=== PATIENT | female | born 1970 | race Caucasian/White ===

== ENCOUNTER 2023-12-20 08:37 | Outpatient (AMB) | payer OTHER, SELFPAY ==
--- NOTE | 2023-12-20 08:41 | MHC.PC.OV ---
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 She states she has not had a pcp in many years. She states that she thinks she has a history of elevated blood sugars but is not really sure. She says that they told her that they were going to watch her for diabetes about 10 years ago. No family history. She states that back in May 2023 she went to urgent care for right knee pain and was told probably ligament injury. She waited until October and went to urgent care again. She states at that time she was starting to feel tired, achy and her knee was red and swollen. She was then dx with lyme disease and borderline anaplasmosis. She took doxy for 28 days and finished it on this past Sunday. She states overall she is feeling a lot better but she still feels tired and like her knee is painful. 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 She works 2 jobs. She states that she is up-to-date on mammograms but not with gynecology. She has never had a bone density. 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 1. Little interest or pleasure in doing things: not at all 2. Feeling down, depressed, or hopeless: not at all 3. Trouble falling or staying asleep, or sleeping too much: several days 4. Feeling tired or having little energy: several days 5. Poor appetite or overeating: not at all 6. Feeling bad about yourself - or that you are a failure or have let yourself or your family down: not at all 7. Trouble concentrating on things, such as reading the newspaper or watching television: not at all 8. Moving or speaking so slowly that other people could have noticed. Or the opposite - being so fidgety or restless that you have been moving around a lot more than usual: not at all 9. Thoughts that you would be better off or of hurting yourself in some way: not at all Total score: 2 Source: Developed by Drs. Paco Carrillo, Nicolle Page, Dariusz Rose and colleagues, with an educational lucian from [employer]. Thrive Questionnaire Date Thrive assessed: 12/13/23 I am a: Patient What is your living situation today?: I have a steady place to live Within the past 12 months, did the food you bought not last and you didn't have the money to get more?: I choose not to answer this question Within the past 12 months, did you worry whether your food would run out before you got money to buy more?: I choose not to answer this question Do you have trouble paying for medicines?: No Do you have trouble getting transportation to medical appointments?: No Do you have trouble paying your heating and electricity bill?: No Do you have trouble taking care of your child, family member or friend?: No Do you have trouble with day-to-day activities such as bathing, preparing meals, shopping, managing finances, etc.?: No Are you currently unemployed and looking for a job?: No Are you interested in more education?: No Please select the resources that you would like help with: None Currently or been in a relationship where the following occur: I choose not to answer THRIVE Score: 0 AUDIT C Alcohol Use Questionnaire (AUDIT-C) 1. How often do you have a drink containing alcohol?: Never 3. How often do you have six or more drinks on one occasion?: Never Total Score: 0 JESS-7 AMB Questionnaire JESS-7 Feeling nervous, anxious, or on edge: 0 = Not at all Not being able to stop or control worryin = Not at all Worrying too much about different things: 0 = Not at all Trouble relaxin = Not at all Being so restless that it is hard to sit still: 0 = Not at all Feeling afraid as if something awful might happen: 0 = Not at all Source: Developed by Drs. Paco Carrillo, Nicolle Page, Dariusz Rose and colleagues, with an educational lucian from [employer]. Physical exam (Primary Care) Vital Signs: Last Vital Signs Temp 98.3 F 12/20/23 08:47 Pulse 69 12/20/23 08:47 Resp 14 12/20/23 08:47 BP 126/84 12/20/23 08:47 Pulse Ox 97 12/20/23 08:47 Oxygen Delivery Method Room Air 12/20/23 08:47 BMI result Body Mass Index 35.2 Tobacco/Smoking Status: Tobacco use Status Tobacco use date assessed 12/20/23 12/20/23 08:52 Patient Tobacco Use Status Current everyday Tobacco 12/20/23 08:52 e-Cigarette/Vaping Use Never Used 12/20/23 08:52 PHQ-9: PHQ-9 Score PHQ-9: Total score 2 12/20/23 09:39 Thrive Assessment: Date of Thrive Assessment Date Thrive assessed 12/13/23 12/20/23 08:52 Currently or been in a relationship where the following occur: I choose not to answer Const Orientation/consciousness: patient oriented x3 HENMT Ears: hearing grossly normal bilaterally Neck Thyroid: Thyroid normal Lymphatic: no lymphadenopathy noted Resp Auscultation: clear to auscultation bilaterally Cardio Rate: regular rate Rhythm: regular rhythm Heart sounds: S1 normal heart sound present and S2 normal heart sound present GI Inspection: Yes normal to inspection Palpation (GI): Soft to palpation and Other GI palpation findings present (nontender, no cva tenderness) Auscultation: normoactive bowel sounds Rectal Exam - Female: deferred Skin General skin exam: no rashes or lesions noted Neuro General: patient oriented x3, gait normal and no focal motor deficits Assessment and Plan Assessment & Plan (1) Right knee pain: Code(s): M25.561 - Pain in right knee Qualifiers: Chronicity: chronic Qualified Code(s): M25.561 - Pain in right knee; G89.29 - Other chronic pain Plan: S/p Lyme disease. Completed treatment. Reports having imaging which showed arthritic changes. I will refer her to ortho for ongoing pain. Failed conservative management with NSAIDs. (2) Lyme disease: Code(s): A69.20 - Lyme disease, unspecified Plan: Completed antibiotic treatment. (3) IFG (impaired fasting glucose): Code(s): R73.01 - Impaired fasting glucose Plan: Labs and A1c ordered (4) Fatigue: Code(s): R53.83 - Other fatigue Plan: Labs ordered today. Does report some improvement in questions if related to Lyme disease. Denies snoring. She is able to sleep through the night without difficulty. No exertional fatigue. Referral to chicken picker Colonoscopy referral ordered Bone density ordered Labs ordered Return in 3 months for a physical. Sooner if needed. Patient understands and agrees with the plan. Orders: Orders Comprehensive [place]aines. Panel Fast Today A69.20 - Lyme disease, unspecified, R53.83 - Other fatigue, R73.01 - Impaired fasting glucose TSH reflex Free T4 Today A69.20 - Lyme disease, unspecified, R53.83 - Other fatigue, R73.01 - Impaired fasting glucose Vitamin B12 and Folate Today A69.20 - Lyme disease, unspecified, R53.83 - Other fatigue, R73.01 - Impaired fasting glucose UA CC w/rflx Micro + Cult Today A69.20 - Lyme disease, unspecified, R53.83 - Other fatigue, R73.01 - Impaired fasting glucose Magnesium Today A69.20 - Lyme disease, unspecified, R53.83 - Other fatigue, R73.01 - Impaired fasting glucose C Reactive Protein Today A69.20 - Lyme disease, unspecified, R53.83 - Other fatigue, R73.01 - Impaired fasting glucose Uric Acid Today A69.20 - Lyme disease, unspecified, R53.83 - Other fatigue, R73.01 - Impaired fasting glucose Hemoglobin A1c Today R73.01 - Impaired fasting glucose Complete Blood Count Auto Diff Today A69.20 - Lyme disease, unspecified, R53.83 - Other fatigue, R73.01 - Impaired fasting glucose Lipid Panel Today A69.20 - Lyme disease, unspecified, R53.83 - Other fatigue, R73.01 - Impaired fasting glucose Ferritin Today A69.20 - Lyme disease, unspecified, R53.83 - Other fatigue, R73.01 - Impaired fasting glucose IRON PROFILE Today A69.20 - Lyme disease, unspecified, R53.83 - Other fatigue, R73.01 - Impaired fasting glucose Erythrocyte Sedimentation Rate Today A69.20 - Lyme disease, unspecified, R53.83 - Other fatigue, R73.01 - Impaired fasting glucose XR DEXA axial skeleton Today Z78.0 - Asymptomatic menopausal state Referrals Orthopedics Referral A69.20 - Lyme disease, unspecified, M25.561 - Pain in right knee 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
[2023-12-20 08:47] VITALS: BP 126/84; PULSE 69; RESP 14; TEMP 36.8; O2SAT 97; BMI 35.2
== END 2023-12-20 09:49 | disposition home or self-care (01) ==
PROVIDERS: Visit Provider Physician Assistant
DX: M25.561 Pain in right knee (principal); G89.29 Other chronic pain; A69.20 Lyme disease, unspecified; R73.01 Impaired fasting glucose; R53.83 Other fatigue
CPT/HCPCS: 99204

== ENCOUNTER 2023-12-24 07:02 | Outpatient (REF) | payer OTHER, SELFPAY ==
[2023-12-24 07:16] LABS: MANUAL DIFF FLAG NO
[2023-12-24 07:50] LABS: Basophils Percent Auto 0.5 % (0-2); Eosinophils Absolute Auto 0.1 X10*3/uL (0.0-0.4); Eosinophils Percent Auto 1.4 % (0-4); Hemoglobin 13.9 g/dl (12.0-16.0); Imm Gran Abs Auto 0.05 X10*3/uL (0.00-0.03); Imm Gran Pct Auto 0.6 % (0.0-0.4); Lymphocytes Absolute Auto 2.9 X10*3/uL (1.2-4.9); Lymphocytes Percent Auto 33.6 % (20-40); Mean Corpuscular HGB Conc 33.9 g/dl (31.0-35.0); Mean Corpuscular Volume 88.6 fL (80.0-98.0); Mean Platelet Volume 9.2 fL (9.4-12.3); Monocytes Absolute Auto 0.5 X10*3/uL (0.1-1.2); Monocytes Percent Auto 6.3 % (2-11); Neutrophils Absolute Auto 4.9 x10*3/uL (2.0-8.3); Neutrophils Percent Auto 57.6 % (45-73); Platelet Count 273 X10*3/uL (160-400); Red Blood Count 4.63 X10*6/uL (4.20-5.50); Red Cell Distribution Width 12.2 % (11.0-16.0); White Blood Count 8.6 X10*3/uL (4.8-10.8)
[2023-12-24 08:05] LABS: Estimated Average Glucose 134 mg/dL; Hemoglobin A1c % 6.3 % (<6.0)
[2023-12-24 08:11] LABS: Appearance Urine Clear; Color Urine Yellow; Glucose Urine UA Negative (Negative); Leukocyte Esterase Urine Negative (Negative); Nitrite Urine Negative (Negative); Specific Gravity - Urine 1.015 (1.005-1.025); UMIC TRIGGER UACC YES; Urine Blood Small (1+) (Negative); Urine Ketones Negative (Negative); Urine Protein Negative (Neg-Trace)
[2023-12-24 08:20] LABS: Alanine Aminotransferase 25 U/L (0-31); Albumin Level 4.1 g/dL (3.5-5.0); Alkaline Phosphatase 62 U/L (39-117); Anion Gap 12 (12-20); Aspartate Amino Transferase 18 U/L (5-31); Bilirubin Total 0.8 mg/dL (0.0-1.0); Blood Urea Nitrogen 11 mg/dL (9-16); C Reactive Protein 0.33 mg/dL (< or = 0.50); Calcium 9.8 mg/dL (8.4-10.2); Carbon Dioxide 23 mmol/L (22-29); Chloride 107 mmol/L (96-108); Cholesterol 222 mg/dL (<200); Estimated Glomerular Filt Rate > 60; Glucose Fasting 130 mg/dL (60-99); HDL Cholesterol 37 mg/dL (>40); Iron 137 mcg/dL (30-160); LDL Cholesterol Calculated 134 mg/dL (<100); Magnesium 1.9 mg/dL (1.6-2.6); Percent Iron Saturation 52 % (15-50); Potassium 4.2 mmol/L (3.3-5.1); Sodium 138 mmol/L (135-145); Total Iron Binding Capacity 263 mcg/dL (228-428); Total Protein 6.5 g/dL (6.5-8.0); Triglycerides 258 mg/dL (<150); Unsaturated Iron Binding 126 ug/dL; Uric Acid 5.2 mg/dL (2.4-5.7)
[2023-12-24 08:27] LABS: Erythrocyte Sedimentation Rate 6 MM/HR (0-20); Ferritin 141 ng/mL (10-250); TSH reflex Free T4 1.42 uIU/mL (0.32-4.0)
[2023-12-24 08:27] LABS: Bacteria Urine None Seen (None Seen); Hyaline Casts Urine 0-2 /LPF (0-2); RBC Urine 0-2 /HPF (0-2); Squamous Epithelial Cell Urine 0-2 /HPF (0-2); WBC Urine 0-5 /HPF (0-5)
[2023-12-24 09:04] LABS: Folate 9.2 ng/mL (> or = 4.0); Vitamin B12 212 pg/mL (200-900)
== END 2023-12-24 07:03 | disposition home or self-care (01) ==
LOC: HO.LAB 07:02
PROVIDERS: PCP Physician Assistant; Visit Provider Physician Assistant
DX: R73.01 Impaired fasting glucose (principal); R53.83 Other fatigue; A69.20 Lyme disease, unspecified
CPT/HCPCS: 36415; 80053; 80061; 81001; 82607; 82728; 82746; 83036; 83540; 83735; 84443; 84550; 85025; 85652; 86140

== ENCOUNTER 2024-01-16 08:38 | Outpatient (AMB) | payer OTHER, SELFPAY ==
--- NOTE | 2024-01-16 08:48 | MHC.OFFVIS ---
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 Pt state this pain started in May with no known injury. Pt states she has stiffness,pain, and swelling. Pt states she was diagnosed with Lyme Disease in October. Pt denies any previous surgeries or injections in her right knee. The patient recently completed her course of antibiotics for treatment of her Lyme disease. She denies any locking or giving way. 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 Current occupational exposures/hazards: No Cognitive needs: No Hearing needs: No Vision needs: No Physical Exam Const Other: Well-nourished well-developed very friendly female awake alert and oriented x3 in no acute distress Extrem Other: Bilateral lower extremity examination shows good capillary refill, no skin lesions noted, normal sensation light touch Right knee examination shows a minimal effusion, minimal crepitus with range of motion, negative Fidelina's test, no instability Results Reviewed Results Reviewed: X-rays of the patient's right knee show mild diffuse joint space narrowing, no acute bony abnormalities Assessment & Plan Assessment & Plan (1) Right knee pain: Code(s): M25.561 - Pain in right knee Category: Medical Qualifiers: Chronicity: chronic Qualified Code(s): M25.561 - Pain in right knee; G89.29 - Other chronic pain Plan Ms. Douglass presents with right knee pain due to early degenerative joint disease as well as possible residual inflammation from her recent Lyme disease. I had a lengthy discussion with the patient regarding the treatment options. The risks and benefits of a right knee cortisone injection were discussed at length with the patient. The patient wished to proceed. She tolerated the injection well. She will continue with her home exercise program. I did give her a prescription for Celebrex to help with her symptoms as well. She will contact me prior to her follow-up appointment in 3 months should any questions or concerns arise. Feel free to call me at any time should questions regarding her orthopedic management arise. Thank you very much for asking me to see this very friendly patient. I spent 22 minutes in reviewing the patient's records and imaging studies, seeing the patient and documenting in the medical record. Orders: Orders AMB Joint Injection/Aspiration 01/16/24 G89.29 - Other chronic pain, M25.561 - Pain in right knee XR knee RT 3V 01/16/24 G89.29 - Other chronic pain, M25.561 - Pain in right knee Medications: New celecoxib (Celebrex) 200 mg PO DAILY PRN 30 caps 3RF pain Coding Level of Care Code New Pt Level 3 (45128) Complex EM visit Add On G2211 Diagnoses Chronic pain of right knee M25.561; G89.29 Chronicity: chronic
== END 2024-01-16 09:25 | disposition home or self-care (01) ==
PROVIDERS: PCP Physician Assistant; Visit Provider Orthopaedic Surgery
DX: M17.11 Unilateral primary osteoarthritis, right knee (principal)
CPT/HCPCS: 20610; 99203

== ENCOUNTER 2024-01-16 09:33 | Outpatient (REF) | payer OTHER, SELFPAY ==
[2024-01-16 10:23] LABS: Appearance Urine Clear; Color Urine Yellow; Glucose Urine UA Negative (Negative); Leukocyte Esterase Urine Negative (Negative); Nitrite Urine Negative (Negative); PH 6.5 (5.0-9.0); Specific Gravity - Urine 1.015 (1.005-1.025); UMIC TRIGGER UACC YES; Urine Blood Small (1+) (Negative); Urine Ketones Negative (Negative); Urine Protein Negative (Neg-Trace)
[2024-01-16 10:32] LABS: Bacteria Urine None Seen (None Seen); Hyaline Casts Urine 0-2 /LPF (0-2); Squamous Epithelial Cell Urine 0-2 /HPF (0-2); WBC Urine 0-5 /HPF (0-5)
== END 2024-01-16 09:34 | disposition home or self-care (01) ==
LOC: HO.LAB 09:33
PROVIDERS: Visit Provider Physician Assistant
DX: R31.9 Hematuria, unspecified (principal)
CPT/HCPCS: 81001; 81003

== ENCOUNTER 2024-01-16 13:47 | Outpatient (REF) | payer OTHER, SELFPAY ==
--- NOTE | ~2024-01-16 | XR_ITS ---
EXAMINATION: XR KNEE, RIGHT CLINICAL INFORMATION: Right knee pain COMPARISON: None available. TECHNIQUE: Three views of the right knee. FINDINGS: Normal osseous mineralization. There is probable minimal narrowing of the medial knee joint space. Lateral knee joint space and patellofemoral joint spaces are preserved. No evidence of subarticular sclerosis or cystic changes. No marginal osteophytic changes are seen. No suprapatellar joint effusion. No dystrophic soft tissue calcifications. No evidence of acute fracture or dislocation. XR/XR knee RT 3V IMPRESSION: No evidence of acute fracture or dislocation in the right knee. Probable minimal narrowing of the medial knee joint space. Electronically signed by: Marycarmen Knox MD 01/31/2024 10:44 AM EDT
== END 2024-01-16 13:48 | disposition home or self-care (01) ==
LOC: HO.HOSX 13:47
PROVIDERS: Visit Provider Orthopaedic Surgery
DX: M17.11 Unilateral primary osteoarthritis, right knee (principal); M25.561 Pain in right knee; G89.29 Other chronic pain
CPT/HCPCS: 20610; 73562; J1010; J2003

== ENCOUNTER 2024-01-29 13:43 | Outpatient (REF) | payer OTHER, SELFPAY ==
--- NOTE | ~2024-01-29 | MM_ITS ---
EXAMINATION: BONE DENSITOMETRY CLINICAL INDICATION: Menopause. COMPARISON: This is the patient's baseline examination. TECHNIQUE: Using a [employer] DXA System (software version: 13.1) manufactured by [employer], dual-energy x-ray absorptiometry was performed of the lumbar spine and left hip. The images are of good technical quality. Summary results are attached. FINDINGS: LEFT FEMUR, NECK: BMD 0.896 g/cm2, Z-score -0.8, T-score -1.0, normal. LEFT FEMUR, TOTAL: BMD 1.025 g/cm2, Z-score 0.0, T-score 0.1, normal. AP SPINE L1-L4: BMD 1.029 g/cm2, Z-score -1.6, T-score -1.3, osteopenia. IDENTIFIED RISK FACTORS: Early menopause, tobacco use (current smoker), secondary osteoporosis. HISTORY OF FRACTURE: None listed. MEDICATIONS: None listed. MM/XR DEXA axial skeleton IMPRESSION: 1. DIAGNOSIS: Osteopenia based on the lowest T-score value of -1.3 in the lumbar spine applying World Health Organization criteria. 2. 10-YEAR FRACTURE RISK PREDICTION, FRAX: Major osteoporotic fracture (clinical spine, forearm, hip or shoulder) 4.9%. Hip fracture 0.4%. 3. Treatment Recommendations: NOF guidelines recommend consideration for treatment in postmenopausal women and men age 50 and older presenting with the following: -A hip or vertebral (clinical or morphometric) fracture. -T-score less than or equal to -2.5 at the femoral neck or spine after appropriate evaluation to exclude secondary causes. -Low bone mass at the hip or spine and a 10-year fracture probability by FRAX of greater than or equal to 3% for hip fracture or greater than or equal to 20% for major osteoporotic fracture based on the [place] adapted WHO algorithm. 4. Other Recommendations: All treatment decisions require clinical judgment and consideration of individual patient factors, including patient preferences, comorbidities, previous drug use, risk factors not captured in the FRAX model (e.g. frailty, falls, vitamin D deficiency, increased bone turnover, interval significant decline in bone density) and possible under or overestimation of fracture risk by FRAX. Additional medical evaluation for secondary cause of low bone mineral density may be appropriate. FUTURE SCAN RECOMMENDATION: People with diagnosed cases of osteoporosis or at high risk for fracture should have regular bone mineral density tests. For patients eligible for Medicare, routine testing is allowed once every 2 years. The testing frequency can be increased to one year for patients who have rapidly progressing disease, those who are receiving or discontinuing medical therapy to restore bone mass, or have additional risk factors. Electronically signed by: Marycarmen Knox MD 01/31/2024 10:42 AM EDT
== END 2024-01-29 13:44 | disposition home or self-care (01) ==
LOC: HO.MAMMO 13:43
PROVIDERS: PCP Physician Assistant; Visit Provider Physician Assistant
DX: Z78.0 Asymptomatic menopausal state (principal); M85.80 Other specified disorders of bone density and structure, unspecified site
CPT/HCPCS: 77080

== ENCOUNTER 2024-03-17 07:38 | Outpatient (REF) | payer OTHER, SELFPAY ==
[2024-03-17 16:56] LABS: Urine Cytology See Pathology rpt
== END 2024-03-17 07:39 | disposition home or self-care (01) ==
LOC: HO.LAB 07:38
PROVIDERS: PCP Physician Assistant; Visit Provider Nurse Practitioner Family
DX: R31.9 Hematuria, unspecified (principal); F17.200 Nicotine dependence, unspecified, uncomplicated
CPT/HCPCS: 81003; 88112

== ENCOUNTER 2024-03-17 07:38 | Outpatient (AMB) | payer OTHER, SELFPAY ==
--- NOTE | 2024-03-17 07:54 | MHC.OFFVIS ---
Intake Visit Reasons: microscopic hematuria Intake Note: Patient is present for MICROSCOPIC HEMATURIA Urology Medication:NONE Antibiotic Allergy:NONE Blood Thinner:NONE Rn Case Manager Hospice Required: No Allergies No Known Allergies [No Known Allergies*] Allergy (Verified 03/17/24 08:43) Medication List - Last Reconciled 03/17/24 by BOGDAN Waite celecoxib (Celebrex) 200 mg PO DAILY PRN HPI Comments Details: Love is a very pleasant 53-year-old female patient of Dr. Mathew. She has a past medical history of Lyme disease, nicotine dependence, and early degenerative joint disease. She presents to the office today as a new patient for microscopic hematuria. In discussion with the patient today she reports having followed up with her PCP and microscopic hematuria was noted at which time recommendations were made for urology referral for further assessment evaluation. When asked she does report a longstanding history of nicotine dependence. She reports she has been smoking for approximately 25-30 years. She reports she had smoked a proximally 1 pack per day however given her increased work schedule smokes 5-6 cigarettes daily. She does report noting urinary urgency and frequency. She otherwise denies incontinence, nocturia, hematuria, dysuria, foul smelling urine, changes to urinary stream, flank pain, fever, and or chills. In office urinalysis results reviewed with the patient today. 2+ microscopic hematuria. We discussed at length potential causes of microscopic hematuria as well as further workup to include in office cystoscopy and CT urogram. She is agreeable. All questions were answered. She otherwise offers no other issues or concerns at this time. 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 Current occupational exposures/hazards: No Cognitive needs: No Hearing needs: No Vision needs: No Review of Systems Const All systems reviewed & are unremarkable except as noted in HPI and below Physical Exam Const General: cooperative, healthy appearing, comfortable, no acute distress, well developed, alert and awake Orientation/consciousness: patient oriented x3 Limitations: no limitations HEENT Head: Yes normal to inspection, Yes normocephalic and Yes atraumatic Ears: hearing grossly normal bilaterally Eyes General: appearance normal, both eyes and all related structures Neck Neck: Yes normal visual inspection and Yes trachea midline Chest Chest palpation & inspection: normal inspection of the chest Resp Effort & Inspection: normal respiratory effort and able to speak in complete sentences Cardio Rate: regular rate GI Inspection: Yes normal to inspection General: Yes no CVA tenderness Back/Spine/Pelvis Back: no CVA tenderness Skin General skin exam: no rashes or lesions noted Neuro General: patient oriented x3 Extrem General: Yes normal to inspection Psych Appearance: grossly normal and well kempt Mental Status: mental status grossly normal Speech and movement: Normal speech and movement present and Clear speech present Affect: normal affect Attitude: cooperative Thought process: Normal thought process present Thought content: Normal thought content present Insight: Fair insight present (Psych) Judgement: Fair judgement present (Psych) Results AMB Urinalysis, Automated UA Leukoctes 0 Jojo/uL Last Edit by Rufus Burgos LPN on 03/17/24 08:26 UA Nitrite Negative Last Edit by Rufus Burgos LPN on 03/17/24 08:26 UA Urobilinogen 0.2 mg/dL Last Edit by Rufus Burgos LPN on 03/17/24 08:26 UA Protein 0 mg/dL Last Edit by Rufus Burgos LPN on 03/17/24 08:26 UA pH 6.0 Last Edit by Rufus Burgos LPN on 03/17/24 08:26 UA Blood 80 Espinoza/uL Last Edit by Rufus Burgos LPN on 03/17/24 08:26 UA Specific Gotham 1.020 Last Edit by Rufus Burgos LPN on 03/17/24 08:26 UA Ketone Negative Last Edit by Rufus Burgos LPN on 03/17/24 08:26 UA Bilirubin 0 mg/dL Last Edit by Rufus Burgos LPN on 03/17/24 08:26 UA Glucose 0 mg/dL Last Edit by Rufus Burgos LPN on 03/17/24 08:26 Results Reviewed Results Reviewed: Laboratory Last Values Urine pH (Auto) 6.0 03/17/24 08:25 Specific Goth[place] (Auto) 1.020 03/17/24 08:25 Urine Protein (Auto) 0 mg/dL 03/17/24 08:25 Glucose (UA)(Auto) 0 mg/dL 03/17/24 08:25 Urine Ketones (Auto) Negative 03/17/24 08:25 Urine Blood (Auto) 80 Espinoza/uL 03/17/24 08:25 Urine Nitrite (Auto) Negative 03/17/24 08:25 Urine Bilirubin (Auto) 0 mg/dL 03/17/24 08:25 Urine Urobilinogen (Auto) 0.2 mg/dL 03/17/24 08:25 Leukocyte Esterase (Auto) 0 Jojo/uL 03/17/24 08:25 Assessment & Plan Assessment & Plan (1) Nicotine dependence: Code(s): F17.200 - Nicotine dependence, unspecified, uncomplicated Category: Medical (2) Microscopic hematuria: Code(s): R31.29 - Other microscopic hematuria Category: Medical (3) Urinary urgency: Code(s): R39.15 - Urgency of urination Category: Medical Plan In office urinalysis results reviewed the patient today; as noted above; will send for urine cytology. We discussed at length potential causes of microscopic hematuria. Will obtain CT urogram for further assessment evaluation. BUN and creatinine ordered for imaging. We discussed bladder triggers/irritants. Discussed and educated on the importance of limiting/quitting nicotine dependence for overall health and well-being. Follow-up in office cystoscopy with imaging to be completed prior; or sooner with any issues, concerns, and or questions. Orders: Orders AMB Urinalysis Automated Today R31.9 - Hematuria, unspecified CT urogram Today R31.0 - Gross hematuria Creatinine Today R39.15 - Urgency of urination Urine Cytology Today F17.200 - Nicotine dependence, unspecified, uncomplicated, R31.9 - Hematuria, unspecified Blood Urea Nitrogen Today R39.15 - Urgency of urination Patient Instructions: The patient had an opportunity to ask questions regarding the treatment plan. All questions were answered. Physical exam, labs, and imaging were discussed and reviewed in detail. As well as risks, benefits, and discussion of treatment choices. No major barriers to understanding were identified. The patient expressed understanding and agreement with the above treatment plan. The patient was made aware they should contact our office by phone for worsening of their current condition, the appearance of new symptoms, or with any questions or concerns. Compliance is encouraged with any medications and follow up testing that is ordered. It is a privilege to be allowed the opportunity to participate in? your urological care.? Again, if you have any questions or concerns If you have any questions or concerns please do not hesitate to contact me. The office is [phone]. This note is constructed using voice recognition software. While every effort has been made to ensure accuracy substation operator transforming errors may have been included. Yours sincerely, BOGDAN Waite Coding Level of Care Code New Pt Level 3 (10738) Diagnoses Nicotine dependence F17.200 Microscopic hematuria R31.29 Urinary urgency R39.15
--- OUTSIDE RECORDS SUMMARY | 2024-03-19 12:39 | XMS_ITS | Data Portability ---
Author Organization DANYELLE Pardo [facility], [address] Address [address] [place] [address] Assessment No assessment recorded. Plan of Treatment Reminders Order Date Submit Date Provider Last Modified By Organization Details Last Modified Time Details Appointments None recorded. Lab urinalysis, dipstick 2022 023 [place] [address] 21005_[facility], [address] [place] [address], [address], 12:49:25 test, urine 2022 023 [place] [address] 2[facility], [address] [place] [address], [address], 12:49:25 Referral None recorded. Procedures None recorded. Surgeries None recorded. Imaging None recorded. Medication Orders cyclobenzap rine 10 mg tablet 2022 023 [id number], [address] [place], [address], 3 12:49:27 naproxen 500 mg tablet 2022 023 [id number], [address] [place], [address], 3 12:49:27 Patient TargetsNo targets recorded. Patient Instructions Encounter Date Encounter Id Patient Instructions Last Modified By Organization Details Last Modified Time 08/31/2022 [id number] back pain: care instructions [place] [address] Not available 08/31/2022 12:49:25 Reason for Referral None Reported. Results Created Date Observation Date Name Description Value Unit Range Abnormal Flag Note LastModifiedBy Organization Detail LastModifiedTime 09/01/19 23 08/31/2022 pregn catarino test, urine Unknown Analyte Normal = Negati ve Not Available 2099eulogio franklin [address], [place], [address], 08/31/2022 11:51:08 09/01/19 23 08/31/2022 pregn catarino test, urine Unknown Analyte negati ve Not Available 2099eulogio franklin [address], [place], [address], 08/31/2022 11:51:08 09/01/19 23 08/31/2022 urina lysis , dipst ick Unknown Analyte Normal = light yellow Not Available 2099eulogio franklin [address], [place], [address], 08/31/2022 11:51:03 09/01/19 23 08/31/2022 urina lysis , dipst ick Unknown Analyte Yellow Not Available [address], [place], [address], 08/31/2022 11:51:03 09/01/19 23 08/31/2022 urina lysis , dipst ick Unknown Analyte Normal = clear Not Available 2099eulogio franklin [address], [place], [address], 08/31/2022 11:51:03 09/01/19 23 08/31/2022 urina lysis , dipst ick Unknown Analyte Clear Not Available [address], [place], [address], 08/31/2022 11:51:03 09/01/19 23 08/31/2022 urina lysis , dipst ick Unknown Analyte Normal = negati ve Not Available eulogio [address], [place], [address], 08/31/2022 11:51:03 09/01/19 23 08/31/2022 urina lysis , dipst ick Unknown Analyte Normal = Negati ve Not Available eulogio franklin [address], [place], [address], 08/31/2022 11:51:03 09/01/19 23 08/31/2022 urina lysis , dipst ick Unknown Analyte Normal = Negati ve Not Available [facility] rig[facility]to [address], [place], [address], 08/31/2022 11:51:03 09/01/19 23 08/31/2022 urina lysis , dipst ick Unknown Analyte Negati ve Not Available [facility] [address], [place], [address], 08/31/2022 11:51:03 09/01/19 23 08/31/2022 urina lysis , dipst ick Unknown Analyte Negati ve Not Available eulogio franklin [address], [place], [address], 08/31/2022 11:51:03 09/01/19 23 08/31/2022 urina lysis , dipst ick Unknown Analyte Negati ve Not Available [facility] rigoberto [address], [place], [address], 08/31/2022 11:51:03 09/01/19 23 08/31/2022 urina lysis , dipst ick Unknown Analyte Normal = 1.010, 1.015, 1.020 Not Available eulogio franklin [address], [place], [address], 08/31/2022 11:51:03 09/01/19 23 08/31/2022 urina lysis , dipst ick Unknown Analyte 1.020 Not Available ronnie [address], [place], [address], 08/31/2022 11:51:03 09/01/19 23 08/31/2022 urina lysis , dipst ick Unknown Analyte Normal = Negati ve Not Available eulogio franklin [address], [place], [address], 08/31/2022 11:51:03 09/01/19 23 08/31/2022 urina lysis , dipst ick Unknown Analyte Modera te Not Available eulogio franklin [address], [place], [place], [address], 08/31/2022 11:51:03 09/01/19 23 08/31/2022 urina lysis , dipst ick Unknown Analyte Normal = 6.5, 7.0, 7.5, 8.0 Not Available [facility] [address], [place], [place], [address], 08/31/2022 11:51:03 09/01/19 23 08/31/2022 urina lysis , dipst ick Unknown Analyte 6.5 Not Available [address], [place], [address], 08/31/2022 11:51:03 09/01/19 23 08/31/2022 urina lysis , dipst ick Unknown Analyte Normal = Negati ve Not Available eulogio [address], [place], [address], 08/31/2022 11:51:03 09/01/19 23 08/31/2022 urina lysis , dipst ick Unknown Analyte Negati ve Not Available [address], [place], [address], 08/31/2022 11:51:03 09/01/19 23 08/31/2022 urina lysis , dipst ick Unknown Analyte Normal = 0.2, 1.0 Not Available 2099eulogio franklin [address], [place], [address], 08/31/2022 11:51:03 09/01/19 23 08/31/2022 urina lysis , dipst ick Unknown Analyte 0.2 E.U./d L Not Available [address] [place] [address], [place], [address], 08/31/2022 11:51:03 09/01/19 23 08/31/2022 urina lysis , dipst ick Unknown Analyte Normal = Negati ve Not Available [address] [place] [address], [place], [address], 08/31/2022 11:51:03 09/01/19 23 08/31/2022 urina lysis , dipst ick Unknown Analyte Normal = Negati ve Not Available [address], [place], [address], 08/31/2022 11:51:03 09/01/19 23 08/31/2022 urina lysis , dipst ick Unknown Analyte Negati ve Not Available [address] [place] [address], [place], [address], 08/31/2022 11:51:03 09/01/19 23 08/31/2022 urina lysis , dipst ick Unknown Analyte Negati ve Not Available [address] [place] [address], [place], [address], 08/31/2022 11:51:03 Result Notes None recorded. Problems No Known Problems Procedures Surgical History Date Name Laterality Status Provider Name and Address Organization Details Recorded Time section completed SOPHIA [facility] 08/31/2022 11:49:52 excision of ganglion cyst completed SOPHIA Pardo [facility] 08/31/2022 11:50:31 Dilation and curettage completed SOPHIA Pardo [facility] 08/31/2022 11:50:46 Imaging Results None recorded. Procedure Notes None recorded. Medical Equipment None Reported. Allergies No known drug allergies Medications Name Sig Start Date Stop Date Status Note LastModified by Organization Details LastModified Time cyclobenzapr ine 10 mg tablet Take 1 tablet twice a day by oral route for 5 days. 2022 active Not Available Not Available Not Avai lable fluticasone propionate 50 mcg/actuatio n nasal spray,suspen cindy SPRAY 2 SPRAYS INTO EACH NOSTRIL DAILY FOR 10 DAYS 08/31 completed Not Available Not Available Not Available naproxen 500 mg tablet Take 1 tablet twice a day by oral route for 5 days. 2022 active Not Available Not Available Not Avai lable amoxicillin 875 mg-potassium clavulanate 125 mg tablet TAKE 1 TABLET BY MOUTH EVERY 12 HOURS FOR 10 DAYS 08/31 completed Not Available Not Available Not Available Vitals Date Recorded Body height Body mass index (BMI) Body weight Respiratory rate Oxygen saturation Oxygen saturation in Arterial blood by Pulse oximetry Heart rate Body temperature Systolic blood pressure Diastolic blood pressure Provider Name and Address Organization Details Last Updated DateTime 3 167.64 cm 34.1 kg/m2 88774.9 9 g 19 /min 99 % 99 % 65 /min 98 [degF] 159 mm[Hg] 81 mm[Hg] [facility] 11:52:05 Social History Question Answer Notes LastModified by Organizat ion Details LastModified Time Tobacco Smoking Status Current Every Day Smoker DANYELLE Lizama [facility] 08/31/2022 11:49:37 What Is Your Level Of Alcohol Consumption? None [email or web address] Information not available 08/31/2022 How Much Tobacco Do You Smoke? 0.25 PPD [email or web address] Information not available 08/31/2022 Do You Use Any Illicit Or Recreational Drugs? No [email or web address] Information not available 08/31/2022 Have You Recently Traveled Abroad? No [email or web address] Information not available 08/31/2022 Do You Or Have You Ever Used Any Other Forms Of Tobacco Or Nicotine? No [email or web address] Information not available 08/31/2022 Sex: Unknown Functional Status None recorded. Mental Status None recorded. Family History Relationship Description Onset Age of this Age Resolved Age Notes LastModified by Organization Details LastModified Time Father No current problems or disability [email or web address] Not available 08/31 11:49:15 Mother No current problems or disability [email or web address] Not available 08/31 11:49:15 Medical History No medical history recorded. Gynecological History Statement/Question Response Date of LMP Obstetrics History GPAL:G 0 P 0 0 0 0 Past Encounters Encounter ID Performer Location Encounter Start Date Encounter Closed Date Diagnosis/Indication Diagnosis SNOMED-CT Code Diagnosis ICD10 Code [id number] [facility] [address] [place] [address] 12/25/2014 09:34:50 12/25/2014 10:29:33 [id number] [facility] [address] [place] [id number] 06/19/2015 09:43:53 06/19/2015 10:30:20 [id number] Jennifer Hewitt MD 21005[facility] [address] [place] [address] 08/31/2022 09:45:19 08/31/2022 12:54:43 Low back pain [id number] M54.50 Health Concerns Section Related Observation LastModified by Organization Detai ls LastModified Time None Recorded Concern Status LastModified by Organization Details LastModified Time None Recorded Advance Directives Directive None Recorded Payers Encounter Date Sequence Insurance Name Policy Number Policy Denise Covered Member ID Denise Member ID Guarantor Name 12/25/2014 1 [facility] [id number] Love Douglass [id number] Love Douglass 06/19/2015 1 [facility] [id number] Love Pacheco Rafat [id number] Love Rafat 08/31/2022 1 [facility] [id number] Love Garciaohue [id number] Love Rafat Notes Date Note Type Note Provider Name and Address Organization Details Recorded Time 3 text/html Back Pain/Injury UCReported bypatient.source of patient informationInformation obtained from patient Location:pain is not radiating Quality:muscle spasms Duration:3 days Aggravating Factors:movement/positioni ng;standing;twisting;walki ng Previous InjuryNo prior injury to affected body part Jennifer Hewitt MD [facility] [place], [address], [place] - [facility] 09/05/2022 08:23:21 OBGyn Episode No OBEpisode recorded.
== END 2024-03-17 09:00 | disposition home or self-care (01) ==
PROVIDERS: PCP Physician Assistant; Visit Provider Nurse Practitioner Family
DX: F17.200 Nicotine dependence, unspecified, uncomplicated (principal); R31.29 Other microscopic hematuria; R39.15 Urgency of urination; R31.9 Hematuria, unspecified
CPT/HCPCS: 99203

== ENCOUNTER 2024-03-27 07:36 | Outpatient (AMB) | payer OTHER, SELFPAY ==
--- OUTSIDE RECORDS SUMMARY | 2024-03-27 07:39 | XMS_ITS | Data Portability ---
Author Organization DANYELLE Pardo [facility], [address] Address [address] [place] [address] Assessment No assessment recorded. Plan of Treatment Reminders Order Date Submit Date Provider Last Modified By Organization Details Last Modified Time Details Appointments None recorded. Lab urinalysis, dipstick 2022 023 [place] [address] 2[facility], [address] [place] [address], [address], 12:49:25 test, urine 2022 023 [place] [address] [facility], [address] [place] [address], [address], 12:49:25 Referral None recorded. Procedures None recorded. Surgeries None recorded. Imaging None recorded. Medication Orders cyclobenzap rine 10 mg tablet 2022 023 [id number], [address] [place], [address], 3 12:49:27 naproxen 500 mg tablet [address] [id number], [address] [place], [address], 3 12:49:27 Patient TargetsNo targets recorded. Patient Instructions Encounter Date Encounter Id Patient Instructions Last Modified By Organization Details Last Modified Time 08/31/2022 [id number] back pain: care instructions [place] [address] Not available 08/31/2022 12:49:25 Reason for Referral None Reported. Results Created Date Observation Date Name Description Value Unit Range Abnormal Flag Note LastModifiedBy Organization Detail LastModifiedTime 09/01/19 23 08/31/2022 pregn catarino test, urine Unknown Analyte Normal = Negati ve Not Available 2099eulogio franklin [address], [place], [address], 08/31/2022 11:51:08 09/01/19 23 08/31/2022 pregn catarino test, urine Unknown Analyte negati ve Not Available 2099eulogio franklin [address], [place], [address], 08/31/2022 11:51:08 09/01/19 23 08/31/2022 urina lysis , dipst ick Unknown Analyte Normal = light yellow Not Available 2099eulogio franklin [address], [place], [address], 08/31/2022 11:51:03 09/01/19 23 08/31/2022 urina lysis , dipst ick Unknown Analyte Yellow Not Available [address], [place], [address], 08/31/2022 11:51:03 09/01/19 23 08/31/2022 urina lysis , dipst ick Unknown Analyte Normal = clear Not Available 2099eulogio franklin [address], [place], [address], 08/31/2022 11:51:03 09/01/19 23 08/31/2022 urina lysis , dipst ick Unknown Analyte Clear Not Available [address], [place], [address], 08/31/2022 11:51:03 09/01/19 23 08/31/2022 urina lysis , dipst ick Unknown Analyte Normal = negati ve Not Available eulogio [address], [place], [address], 08/31/2022 11:51:03 09/01/19 23 08/31/2022 urina lysis , dipst ick Unknown Analyte Normal = Negati ve Not Available eulogio franklin [address], [place], [address], 08/31/2022 11:51:03 09/01/19 23 08/31/2022 urina lysis , dipst ick Unknown Analyte Normal = Negati ve Not Available [facility] rigoberto [address], [place], [address], 08/31/2022 11:51:03 09/01/19 23 08/31/2022 urina lysis , dipst ick Unknown Analyte Negati ve Not Available [facility] rigoberto [address], [place], [address], 08/31/2022 11:51:03 09/01/19 23 08/31/2022 urina lysis , dipst ick Unknown Analyte Negati ve Not Available eulogio franklin [address], [place], [address], 08/31/2022 11:51:03 09/01/19 23 08/31/2022 urina lysis , dipst ick Unknown Analyte Negati ve Not Available [place] rigoberto [address], [place], [address], 08/31/2022 11:51:03 09/01/19 23 08/31/2022 urina lysis , dipst ick Unknown Analyte Normal = 1.010, 1.015, 1.020 Not Available eulogio franklin [address], [place], [address], 08/31/2022 11:51:03 09/01/19 23 08/31/2022 urina lysis , dipst ick Unknown Analyte 1.020 Not Available ronnie [address], [place], [address], 08/31/2022 11:51:03 09/01/19 23 08/31/2022 urina lysis , dipst ick Unknown Analyte Normal = Negati ve Not Available eulogio franklin [address], [place], [address], 08/31/2022 11:51:03 09/01/19 23 08/31/2022 urina lysis , dipst ick Unknown Analyte Modera te Not Available eulogio franklin [address], [place], [place], [address], 08/31/2022 11:51:03 09/01/19 23 08/31/2022 urina lysis , dipst ick Unknown Analyte Normal = 6.5, 7.0, 7.5, 8.0 Not Available [facility] [address], [place], [place], [address], 08/31/2022 11:51:03 09/01/19 23 08/31/2022 urina lysis , dipst ick Unknown Analyte 6.5 Not Available [address], [place], [address], 08/31/2022 11:51:03 09/01/19 23 08/31/2022 urina lysis , dipst ick Unknown Analyte Normal = Negati ve Not Available eulogio [address], [place], [address], 08/31/2022 11:51:03 09/01/19 23 08/31/2022 urina lysis , dipst ick Unknown Analyte Negati ve Not Available [address], [place], [address], 08/31/2022 11:51:03 09/01/19 23 08/31/2022 urina lysis , dipst ick Unknown Analyte Normal = 0.2, 1.0 Not Available 2099eulogio franklin [address], [place], [address], 08/31/2022 11:51:03 09/01/19 23 08/31/2022 urina lysis , dipst ick Unknown Analyte 0.2 E.U./d L Not Available [address] [place] [address], [place], [address], 08/31/2022 11:51:03 09/01/19 23 08/31/2022 urina lysis , dipst ick Unknown Analyte Normal = Negati ve Not Available [address] [place] [address], [place], [address], 08/31/2022 11:51:03 09/01/19 23 08/31/2022 urina lysis , dipst ick Unknown Analyte Normal = Negati ve Not Available [address], [place], [address], 08/31/2022 11:51:03 09/01/19 23 08/31/2022 urina lysis , dipst ick Unknown Analyte Negati ve Not Available [address] [place] [address], [place], [address], 08/31/2022 11:51:03 09/01/19 23 08/31/2022 urina lysis , dipst ick Unknown Analyte Negati ve Not Available [address] [place] [address], [place], [address], 08/31/2022 11:51:03 Result Notes None recorded. Problems [...] Updated DateTime 3 167.64 cm 34.1 kg/m2 79903.9 9 g 19 /min 99 % 99 % 65 /min 98 [degF] 159 mm[Hg] 81 mm[Hg] [facility] 11:52:05 Social History Question Answer Notes LastModified by Organizat ion Details LastModified Time Tobacco Smoking Status Current Every Day Smoker DANYELLE Liz[facility] 08/31/2022 11:49:37 What Is Your Level Of Alcohol Consumption? None [email or web address] Information not available 08/31/2022 How Much Tobacco Do You Smoke? 0.25 PPD [email or web address] Information not available 08/31/2022 Do You Use Any Illicit Or Recreational Drugs? No Information not available 08/31/2022 Have You Recently Traveled Abroad? No [email or web address] Information not available 08/31/2022 Do You Or Have You Ever Used Any Other Forms Of Tobacco Or Nicotine? No [email or web address] Information not available 08/31/2022 Sex: Unknown Functional Status None recorded. Mental Status None recorded. Family History Relationship Description Onset Age of this Age Resolved Age Notes LastModified by Organization Details LastModified Time Father No current problems or disability [email or web address] Not available 08/31 11:49:15 Mother No current problems or disability Not available 08/31 11:49:15 Medical History No medical history recorded. Gynecological History Statement/Question Response Date of LMP Obstetrics History GPAL:G 0 P 0 0 0 0 Past Encounters Encounter ID Performer Location Encounter Start Date Encounter Closed Date Diagnosis/Indication Diagnosis SNOMED-CT Code Diagnosis ICD10 Code [id number] [facility] [address] [place] [id number] 12/25/2014 09:34:50 12/25/2014 10:29:33 [id number] [facility] [address] [place] [id number] 06/19/2015 09:43:53 06/19/2015 10:30:20 [id number] Jennifer Hewitt MD 21005_[facility] [address] [place] [phone] 08/31/2022 09:45:19 08/31/2022 12:54:43 Low back pain [id number] M54.50 Health Concerns Section Related Observation LastModified by Organization Detai ls LastModified Time None Recorded Concern Status LastModified by Organization Details LastModified Time None Recorded Advance Directives Directive None Recorded Payers Encounter Date Sequence Insurance Name Policy Number Policy Denise Covered Member ID Denise Member ID Guarantor Name 12/25/2014 1 [facility] [id number] Love Douglass [id number] Love Douglass 06/19/2015 1 [facility] [id number] Love Pacheco Rafat [id number] Love Rafat 08/31/2022 1 [facility] [id number] Love Garciaohue [id number] Love Rafat Notes Date Note Type Note Provider Name and Address Organization Details Recorded Time 3 text/html Back Pain/Injury UCReported bypatient.source of patient informationInformation obtained from patient Location:pain is not radiating Quality:muscle spasms Duration:3 days Aggravating Factors:movement/positioni ng;standing;twisting;walki ng Previous InjuryNo prior injury to affected body part Jennifer Hewitt MD [facility] [place], [address], [place] - [facility] 09/05/2022 08:23:21 OBGyn Episode No OBEpisode recorded.
--- NOTE | 2024-03-27 07:58 | A.OFFPC_ITS ---
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 She has a history of hyperlipidemia, prediabetes and Lyme disease. -recently went to urgent care for a URI and was told that she had a murmur. No leg swelling or shortness on breath. Musculoskeletal: had cortisone injection in Jan in right knee. CV: bp today is 132/84. She is not on any antihypertensives. She tells me that she is working on some diet changes. Her last cholesterol did come back elevated and she is motivated to make lifestyle modifications prior to starting medication. Uro: Recent hematuria. She has scans ordered with Urology. 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 She works 2 jobs. She does continue to smoke. No family history of lung cancer. She states that she is up-to-date on mammograms but not with gynecology. She was referred at last visit dexa- osteopenia 2023 Overdue for colonoscopy- was referred at last visit [facility] Medical History (Updated 03/27/24 @ 08:29 by Gabby Mathew PA-C) Carpal tunnel syndrome Surgical History (Updated 03/27/24 @ 08:04 by Shasha Ovalles CMA) H/O section Status post cervical polyp removal Social History (Updated 03/27/24 @ 08:05 by Shasha Ovalles CMA) Housing: House Alcohol intake: never Patient Tobacco Use Status: Current everyday Tobacco user Cigarettes Per Day: 5 Years Smoked: 25 e-Cigarette/Vaping Use: Never Used service: No Current occupational status: employed 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 Current occupational exposures/hazards: No Cognitive needs: No Hearing needs: No Vision needs: No Questionnaire Thrive Questionnaire Date Thrive assessed: 12/13/23 I am a: Patient What is your living situation today?: I have a steady place to live Within the past 12 months, did the food you bought not last and you didn't have the money to get more?: I choose not to answer this question Within the past 12 months, did you worry whether your food would run out before you got money to buy more?: I choose not to answer this question Do you have trouble paying for medicines?: No Do you have trouble getting transportation to medical appointments?: No Do you have trouble paying your heating and electricity bill?: No Do you have trouble taking care of your child, family member or friend?: No Do you have trouble with day-to-day activities such as bathing, preparing meals, shopping, managing finances, etc.?: No Are you currently unemployed and looking for a job?: No Are you interested in more education?: No Please select the resources that you would like help with: None Currently or been in a relationship where the following occur: I choose not to answer THRIVE Score: 0 AUDIT C Alcohol Use Questionnaire (AUDIT-C) 2. How many drinks containing alcohol do you have on a typical day when you are drinking?: 1 or 2 3. How often do you have six or more drinks on one occasion?: Never Total Score: 0 JESS-7 AMB Questionnaire JESS-7 Becoming easily annoyed or irritable: 0 = Not at all Source: Developed by Drs. Paco Carrillo, Nicolle Page, Dariusz Rose and colleagues, with an educational lucian from [employer]. Physical exam (Primary Care) Tobacco/Smoking Status: Tobacco use Status Tobacco use date assessed 03/27/24 03/27/24 07:59 Patient Tobacco Use Status Current everyday Tobacco 03/27/24 08:05 e-Cigarette/Vaping Use Never Used 03/27/24 08:05 Are you ready to quit: No Tobacco cessation counseling provided: Yes Relapse Prevention: discussed dietary, exercise and/or lifestyle changes Thrive Assessment: Date of Thrive Assessment Date Thrive assessed 12/13/23 03/27/24 07:59 Currently or been in a relationship where the following occur: I choose not to answer Const Orientation/consciousness: patient oriented x3 HENMT Ears: hearing grossly normal bilaterally and TM's normal bilaterally General nose exam: No nasal polyps present Face and sinus: Yes sinuses nontender Mouth: Normal oral and palatal mucosa present Eyes Pupils: Equal, round and reactive pupils present EOM: EOMs intact bilaterally Neck Neck: Yes full ROM and Yes no lymphadenopathy Thyroid: Thyroid normal Chest Chest palpation & inspection: normal inspection of the chest Resp Auscultation: clear to auscultation bilaterally Cardio Rate: regular rate Rhythm: regular rhythm Heart sounds: S1 normal heart sound present and S2 normal heart sound present Peripheral pulses: Peripheral pulses 2+ throughout GI Other: Soft, nontender Auscultation: normal bowel sounds Rectal Exam - Female: deferred General: Yes no CVA tenderness Back/Spine/Pelvis Other: Nontender Back: no CVA tenderness Skin General skin exam: no rashes or lesions noted Neuro General: patient oriented x3, gait normal, CN's II-XI intact bilaterally and deep tendon reflexes 2+ bilaterally Cranial nerves: Yes Equal, round and reactive pupils present Motor exam (neuro): 5/5 motor strength present throughout Sensory Exam: double simultaneous stimulation for sensation normal Coordination: aehcea-vr-qcia test normal and Romberg test negative Extrem General: Yes normal to inspection and Yes full ROM Psych Affect: normal affect Attitude: cooperative Thought process: Normal thought process present Thought content: Normal thought content present Insight: Good insight present (Psych) Judgement: Good judgement present (Psych) Results Reviewed Results Reviewed: Laboratory Tests 12/24/23 07:15 WBC 8.6 RBC 4.63 Hgb 13.9 Hct 41.0 Plt Count 273 Sodium 138 Potassium 4.2 Chloride 107 Carbon Dioxide 23 Anion Gap 12 BUN 11 Creatinine 0.89 Estimated GFR > 60 Fasting Glucose 130 H Estimat Average Glucose 134 Hemoglobin A1c % 6.3 H Uric Acid 5.2 Calcium 9.8 Magnesium 1.9 Iron 137 Ferritin 141 AST 18 ALT 25 Alkaline Phosphatase 62 C-Reactive Protein 0.33 Triglycerides 258 H Cholesterol 222 H LDL Cholesterol, Calc 134 H HDL Cholesterol 37 L Vitamin B12 212 Folate 9.2 TSH 1.42 MM/XR DEXA axial skeleton IMPRESSION: 1. DIAGNOSIS: Osteopenia based on the lowest T-score value of -1.3 in the lumbar spine applying World Health Organization criteria. Coding Level of Care Code Est Pt Prev Care 40-64y(33414) Diagnoses Routine general medical examination at a health care facility Z00.00 Prediabetes R73.03 Dyslipidemia E78.5 Murmur R01.1 Assessment & Plan Assessment & Plan (1) Routine general medical examination at a [facility]: Code(s): Z00.00 - Encounter for general adult medical examination without abnormal findings Plan: reviewed labs reviewed colonoscopy ordered (2) Prediabetes: Code(s): R73.03 - Prediabetes Category: Medical Plan: a1c 6.3. discussed increasing protein intake and reducing carbs and sugar. (3) Dyslipidemia: Code(s): E78.5 - Hyperlipidemia, unspecified Category: Medical Plan: lipids ordered. discussed diet changes (4) Murmur: Code(s): R01.1 - Cardiac murmur, unspecified Category: Medical Plan: echo ordered Orders: Orders Lipid Panel 3 Months E78.5 - Hyperlipidemia, unspecified, R73.03 - Prediabetes Comprehensive [place]. Panel Fast 3 Months E78.5 - Hyperlipidemia, unspecified, R73.03 - Prediabetes Hemoglobin A1c 3 Months E78.5 - Hyperlipidemia, unspecified, R73.03 - Prediabetes CA echo transthoracic complete Today R01.1 - Cardiac murmur, unspecified Medications: New mecobalamin (vitamin B12) (B12 Active) 1,000 mcg PO DAILY 90 tabs 3RF
[2024-03-27 08:05] VITALS: BP 132/84; PULSE 83; O2SAT 96; BMI 34.6
== END 2024-03-27 08:42 | disposition home or self-care (01) ==
PROVIDERS: Visit Provider Physician Assistant
DX: Z00.00 Encounter for general adult medical examination without abnormal findings (principal); R73.03 Prediabetes; E78.5 Hyperlipidemia, unspecified; R01.1 Cardiac murmur, unspecified

== ENCOUNTER → 2024-03-27 07:36 | Outpatient (BNVA) | payer OTHER, SELFPAY | PROVIDERS: Visit Provider Physician Assistant ==

== ENCOUNTER 2024-03-27 08:56 | Outpatient (REF) | payer OTHER, SELFPAY ==
[2024-03-27 11:34] LABS: Blood Urea Nitrogen 11 mg/dL (9-16); Estimated Glomerular Filt Rate > 60
[2024-03-27 11:59] LABS: Appearance Urine Clear; Color Urine Dark Yellow; Glucose Urine UA 250 mg/dL (Negative); Leukocyte Esterase Urine Negative (Negative); Nitrite Urine Negative (Negative); PH 5.5 (5.0-9.0); Specific Gravity - Urine 1.025 (1.005-1.025); UMIC TRIGGER UACC YES; Urine Blood Moderate (2+) (Negative); Urine Ketones Trace mg/dL (Negative); Urine Protein Trace mg/dL (Neg-Trace)
[2024-03-27 12:04] LABS: Bacteria Urine None Seen (None Seen); Hyaline Casts Urine 0-2 /LPF (0-2); Squamous Epithelial Cell Urine 0-2 /HPF (0-2); WBC Urine 0-5 /HPF (0-5)
== END 2024-03-27 08:57 | disposition home or self-care (01) ==
LOC: HO.WFDLDS 08:56
PROVIDERS: Referring Provider Nurse Practitioner Family; Visit Provider Physician Assistant
DX: R39.15 Urgency of urination (principal)
CPT/HCPCS: 36415; 81001; 82565; 84520

== ENCOUNTER 2024-03-28 10:12 | Outpatient (AMB) | payer OTHER, SELFPAY ==
--- NOTE | 2024-03-28 00:21 | A.OFFVIS_ITS ---
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 Love was initially evaluated by nurse practitioner Carrie Del Castillo on 03/17/2024. Urine cytology 03/17/2024 IR negative for malignancy. No imaging completed. CT urogram ordered. No pending date in chart 03/17/24--Love is a very pleasant 53-year-old female patient of Dr. Mathew. She has a past medical history of Lyme disease, nicotine dependence, and early degenerative joint disease. She presents to the office today as a new patient for microscopic hematuria. In discussion with the patient today she reports having followed up with her PCP and microscopic hematuria was noted at which time recommendations were made for urology referral for further assessment evaluation. When asked she does report a longstanding history of nicotine dependence. She reports she has been smoking for approximately 25-30 years. She reports she had smoked a proximally 1 pack per day however given her increased work schedule smokes 5-6 cigarettes daily. She does report noting urinary urgency and frequency. She otherwise denies incontinence, nocturia, hematuria, dysuria, foul smelling urine, changes to urinary stream, flank pain, fever, and or chills. In office urinalysis results reviewed with the patient today. 2+ microscopic hematuria. We discussed at length potential causes of microscopic hematuria as well as further workup to include in office cystoscopy and CT urogram. She is agreeable. All questions were answered. She otherwise offers no other issues or concerns at this time. 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 Information consent for procedure given to the patient. Discussed technical aspects, risks, benefits and alternatives in full. Addressed all of the patient's questions and concerns regarding the procedure. The patient demonstrated knowledge and understanding. They wish to proceed with this procedure. Preparation The patient was prepped in the usual manner. A cold patcher was present and in the room. Genitalia was prepped with betadine solution in a sterile manner. Lidocaine Jelly 2% was placed into the urethra and 16Fr flexible Olympus cystoscope was inserted into the meatus after adequate lubrication. Results AMB Urinalysis, Automated UA Leukoctes 0 Jojo/uL Last Edit by Daysi Montoya CMA on 03/28/24 10:42 UA Nitrite Negative Last Edit by Daysi Montoya CMA on 03/28/24 10:42 UA Urobilinogen 0.2 mg/dL Last Edit by Daysi Montoya CMA on 03/28/24 10:4 2 UA Protein 15 mg/dL Last Edit by Daysi Montoya CMA on 03/28/24 10:42 UA pH 6.0 Last Edit by Daysi Montoya CMA on 03/28/24 10:42 UA Blood 200 Espinoza/uL Last Edit by Daysi Montoya CMA on 03/28/24 10:42 UA Specific Harrold 1.030 Last Edit by Daysi Montoya CMA on 03/28/24 10: 42 UA Ketone Negative Last Edit by Daysi Montoya CMA on 03/28/24 10:42 UA Bilirubin 0 mg/dL Last Edit by Daysi Montoya CMA on 03/28/24 10:42 UA Glucose 0 mg/dL Last Edit by Daysi Montoya CMA on 03/28/24 10:42 Results Reviewed Results Reviewed: Laboratory Last Values Urine pH (Auto) 6.0 03/28/24 10:34 Specific Harrold (Auto) 1.030 03/28/24 10:34 Urine Protein (Auto) 15 mg/dL 03/28/24 10:34 Glucose (UA)(Auto) 0 mg/dL 03/28/24 10:34 Urine Ketones (Auto) Negative 03/28/24 10:34 Urine Blood (Auto) 200 Espinoza/uL 03/28/24 10:34 Urine Nitrite (Auto) Negative 03/28/24 10:34 Urine Bilirubin (Auto) 0 mg/dL 03/28/24 10:34 Urine Urobilinogen (Auto) 0.2 mg/dL 03/28/24 10:34 Leukocyte Esterase (Auto) 0 Jojo/uL 03/28/24 10:34 Collected: 03/17/24 Location: .LAB Received: 03/18/24 Diagnosis Urine: Negative for high-grade urothelial carcinoma. See comment. COMMENT: Cellular specimen consisting of single urothelial cells, squamous cells, few red blood cells and few lymphocytes. Clinical History Hematuria, unspecified Material Received Urine Gross Description Received is 78 cc of clear yellow fluid from which a ThinPrep slide is prepared. Assessment & Plan Assessment & Plan Orders: Orders AMB Urinalysis Automated 03/28/24 Z13.9 - Encounter for screening, unspecified AMB Cystoscopy 03/28/24 R31.9 - Hematuria, unspecified CT urogram 03/19/24 R31.0 - Gross hematuria Medications: New lidocaine HCl 2% 10 mL intra-urethral ONCE 10 mL 0RF R31.9 - Hematuria, unspecified ciprofloxacin HCl 500 mg PO ONCE 1 tab 0RF R31.9 - Hematuria, unspecified naproxen 500 mg PO ONCE 1 tab 0RF R31.9 - Hematuria, unspecified Coding
== END 2024-03-28 11:28 | disposition home or self-care (01) ==
PROVIDERS: PCP Physician Assistant; Visit Provider Urology
DX: Z13.9 Encounter for screening, unspecified (principal)

== ENCOUNTER → 2024-03-28 10:12 | Outpatient (BNVA) | payer OTHER, SELFPAY | PROVIDERS: PCP Physician Assistant; Visit Provider Urology | DX: R31.29 Other microscopic hematuria (principal); R39.15 Urgency of urination; F17.200 Nicotine dependence, unspecified, uncomplicated | CPT/HCPCS: 52000; 81003 ==

== ENCOUNTER 2024-04-22 15:15 | Outpatient (AMB) | payer OTHER, SELFPAY ==
[2024-04-22 15:22] VITALS: BMI 34.6
--- NOTE | 2024-04-22 15:22 | A.OFFVIS_ITS ---
Vital Signs 04/22/24 15:22 Height 5 ft 5.47 in Weight 211 lb BMI 34.6 Intake Visit Reasons: OV- RT knee pain Intake Note: Love is a 54 year old female who presents today for a follow up visit of her chronic right knee pain. She states that she got fairly good relief from the cortisone injection that she had last year. Her pain has returned. She does take Celebrex which gives her mild relief. She has tried physical therapy exercises which aggravated her pain. Allergies No Known Allergies [No Known Allergies*] Allergy (Verified 04/22/24 15:24) Medication List - Last Reconciled 04/22/24 by Victor Hugo Abrams MD celecoxib (Celebrex) 200 mg PO DAILY PRN mecobalamin (vitamin B12) (B12 Active) 1,000 mcg PO DAILY nitrofurantoin monohyd/m-cryst 100 mg (Macrobid) 100 mg PO BID phenazopyridine (Pyridium) 200 mg PO Q8H PFSH Medical History (Updated 03/27/24 @ 08:29 by Gabby Mathew PA-C) Carpal tunnel syndrome Surgical History (Updated 03/27/24 @ 08:04 by Shasha Ovalles CMA) H/O section Status post cervical polyp removal Social History (Updated 03/27/24 @ 08:05 by Shasha Ovalles CMA) Housing: House Alcohol intake: never Patient Tobacco Use Status: Current everyday Tobacco user Cigarettes Per Day: 5 Years Smoked: 25 e-Cigarette/Vaping Use: Never Used service: No Current occupational status: employed 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 Current occupational exposures/hazards: No Cognitive needs: No Hearing needs: No Vision needs: No Physical Exam Vital Signs: BMI result Body Mass Index 34.6 Const Other: Well-nourished well-developed very friendly female awake alert and oriented x3 in no acute distress Extrem Other: Bilateral lower extremity examination shows good capillary refill, no skin lesions noted, normal sensation light touch Right knee examination shows a minimal effusion, palpable crepitus with range of motion, pain with range of motion, no instability Office Procedures AMB Joint Injection/Aspiration Joint Injection/Aspiration Primary Site: right knee Prep: site was prepped using aseptic technique Injected: 40 mg of, DepoMedrol and 1% plain lidocaine Procedure: The patient tolerated the procedure well Coding 16043 - Large joint Procedure code (CPT) selection complete Assessment & Plan Assessment & Plan (1) Right knee pain: Code(s): M25.561 - Pain in right knee Category: Medical Qualifiers: Chronicity: chronic Qualified Code(s): M25.561 - Pain in right knee; G89.29 - Other chronic pain Plan Ms. Douglass presents with right knee pain due to early degenerative joint disease. The risks and benefits of a right knee cortisone injection were discussed at length with the patient. The patient wished to proceed. She tolerated the injection well. She will continue with her activity modifications. She will contact me prior to her follow-up appointment in 3 months should any questions or concerns arise. Feel free to call me at any time should questions regarding her orthopedic management arise. I spent 21 minutes in reviewing the patient's records and imaging studies, seeing the patient and documenting in the medical record. Orders: Orders AMB Joint Injection/Aspiration Today G89.29 - Other chronic pain, M25.561 - Pain in right knee Coding Level of Care Code Est Pt Level 3 (88931) Complex EM visit Add On G2211 Diagnoses Chronic pain of right knee M25.561; G89.29 Chronicity: chronic CPT Codes Coding - 48865 Large joint: 28452 - Large joint ([id number])
--- OUTSIDE RECORDS SUMMARY | 2024-04-22 17:42 | XMS_ITS | Data Portability ---
Author Organization DANYELLE Pardo [facility], [address] Address [address] [place] [address] Assessment No assessment recorded. Plan of Treatment Reminders Order Date Submit Date Provider Last Modified By Organization Details Last Modified Time Details Appointments None recorded. Lab urinalysis, dipstick 2022 023 [place] [address] [facility], [address] [place] [address], [address], 3 12:49:25 test, urine 2022 023 [place] [address] [facility], [address] [place] [address], [address], 12:49:25 Referral None recorded. Procedures None recorded. Surgeries None recorded. Imaging None recorded. Medication Orders cyclobenzap rine 10 mg tablet 2022 023 [id number], [address] [place], [address], 3 12:49:27 naproxen 500 mg tablet 2022 023 [id number], [address] [place], [address], 3 12:49:27 Patient TargetsNo targets recorded. Patient Instructions Encounter Date Encounter Id Patient Instructions Last Modified By Organization Details Last Modified Time 08/31/2022 [id number] back pain: care instructions [place] [address] Not available 08/31/2022 12:49:25 Reason for Referral None Reported. Results Created Date Observation Date Name Description Value Unit Range Abnormal Flag Note LastModifiedBy Organization Detail LastModifiedTime 09/01/19 23 08/31/2022 pregn catarino test, urine Unknown Analyte Normal = Negati ve Not Available 2099eulogio franklin [address], [place], [address], 08/31/2022 11:51:08 09/01/19 23 08/31/2022 pregn catarino test, urine Unknown Analyte negati ve Not Available 2099eulogio franklin [address], [place], [address], 08/31/2022 11:51:08 09/01/19 23 08/31/2022 urina lysis , dipst ick Unknown Analyte Normal = light yellow Not Available 2099eulogio franklin [address], [place], [address], 08/31/2022 11:51:03 09/01/19 23 08/31/2022 urina lysis , dipst ick Unknown Analyte Yellow Not Available [address], [place], [address], 08/31/2022 11:51:03 09/01/19 23 08/31/2022 urina lysis , dipst ick Unknown Analyte Normal = clear Not Available 2099eulogio franklin [address], [place], [address], 08/31/2022 11:51:03 09/01/19 23 08/31/2022 urina lysis , dipst ick Unknown Analyte Clear Not Available [address], [place], [address], 08/31/2022 11:51:03 09/01/19 23 08/31/2022 urina lysis , dipst ick Unknown Analyte Normal = negati ve Not Available eulogio [address], [place], [address], 08/31/2022 11:51:03 09/01/19 23 08/31/2022 urina lysis , dipst ick Unknown Analyte Normal = Negati ve Not Available eulogio franklin [address], [place], [address], 08/31/2022 11:51:03 09/01/19 23 08/31/2022 urina lysis , dipst ick Unknown Analyte Normal = Negati ve Not Available [facility] rigoberto [address], [place], [address], 08/31/2022 11:51:03 09/01/19 23 08/31/2022 urina lysis , dipst ick Unknown Analyte Negati ve Not Available [facility] rigoberto [address], [place], [address], 08/31/2022 11:51:03 09/01/19 23 08/31/2022 urina lysis , dipst ick Unknown Analyte Negati ve Not Available eulogio franklin [address], [place], [address], 08/31/2022 11:51:03 09/01/19 23 08/31/2022 urina lysis , dipst ick Unknown Analyte Negati ve Not Available [place] rigoberto [address], [place], [address], 08/31/2022 11:51:03 09/01/19 23 08/31/2022 urina lysis , dipst ick Unknown Analyte Normal = 1.010, 1.015, 1.020 Not Available eulogio franklin [address], [place], [address], 08/31/2022 11:51:03 09/01/19 23 08/31/2022 urina lysis , dipst ick Unknown Analyte 1.020 Not Available ronnie [address], [place], [address], 08/31/2022 11:51:03 09/01/19 23 08/31/2022 urina lysis , dipst ick Unknown Analyte Normal = Negati ve Not Available eulogio franklin [address], [place], [address], 08/31/2022 11:51:03 09/01/19 23 08/31/2022 urina lysis , dipst ick Unknown Analyte Modera te Not Available eulogio franklin [address], [place], [place], [address], 08/31/2022 11:51:03 09/01/19 23 08/31/2022 urina lysis , dipst ick Unknown Analyte Normal = 6.5, 7.0, 7.5, 8.0 Not Available [facility] [address], [place], [place], [address], 08/31/2022 11:51:03 09/01/19 23 08/31/2022 urina lysis , dipst ick Unknown Analyte 6.5 Not Available [address], [place], [address], 08/31/2022 11:51:03 09/01/19 23 08/31/2022 urina lysis , dipst ick Unknown Analyte Normal = Negati ve Not Available eulogio [address], [place], [address], 08/31/2022 11:51:03 09/01/19 23 08/31/2022 urina lysis , dipst ick Unknown Analyte Negati ve Not Available [address], [place], [address], 08/31/2022 11:51:03 09/01/19 23 08/31/2022 urina lysis , dipst ick Unknown Analyte Normal = 0.2, 1.0 Not Available 2099eulogio franklin [address], [place], [address], 08/31/2022 11:51:03 09/01/19 23 08/31/2022 urina lysis , dipst ick Unknown Analyte 0.2 E.U./d L Not Available [address] [place] [address], [place], [address], 08/31/2022 11:51:03 09/01/19 23 08/31/2022 urina lysis , dipst ick Unknown Analyte Normal = Negati ve Not Available [address] [place] [address], [place], [address], 08/31/2022 11:51:03 09/01/19 23 08/31/2022 urina lysis , dipst ick Unknown Analyte Normal = Negati ve Not Available [address], [place], [address], 08/31/2022 11:51:03 09/01/19 23 08/31/2022 urina lysis , dipst ick Unknown Analyte Negati ve Not Available [address] [place] [address], [place], [address], 08/31/2022 11:51:03 09/01/19 23 08/31/2022 urina lysis , dipst ick Unknown Analyte Negati ve Not Available [address] [place] [address], [place], [address], 08/31/2022 11:51:03 Result Notes None recorded. Problems [...] Updated DateTime 3 167.64 cm 34.1 kg/m2 58739.9 9 g 19 /min 99 % 99 % 65 /min 98 [degF] 159 mm[Hg] 81 mm[Hg] [facility] 11:52:05 Social History Question Answer Notes LastModified by Organizat ion Details LastModified Time Tobacco Smoking Status Current Every Day Smoker [facility]LE [facility] 08/31/2022 11:49:37 What Is Your Level Of Alcohol Consumption? None Information not available 08/31/2022 How Much Tobacco Do You Smoke? 0.25 PPD [email or web address] Information not available 08/31/2022 Do You Use Any Illicit Or Recreational Drugs? No [email or web address] Information not available 08/31/2022 Have You Recently Traveled Abroad? No [email or web address] Information not available 08/31/2022 Do You Or Have You Ever Used Any Other Forms Of Tobacco Or Nicotine? No [email or web address] Information not available 08/31/2022 Sex: Unknown Functional Status None recorded. Mental Status None recorded. Family History Relationship Description Onset Age of this Age Resolved Age Notes LastModified by Organization Details LastModified Time Father No current problems or disability [email or web address] Not available 08/31 11:49:15 Mother No current problems or disability [email or web address] Not available 08/31 11:49:15 Medical History No medical history recorded. Gynecological History Statement/Question Response Date of LMP Obstetrics History GPAL:G 0 P 0 0 0 0 Past Encounters Encounter ID Performer Location Encounter Start Date Encounter Closed Date Diagnosis/Indication Diagnosis SNOMED-CT Code Diagnosis ICD10 Code Diagnosis Note [id number] [address] [address] 12/25/2014 09:34:50 12/25/2014 10:29:[id number] [address] [address] 06/19/2015 09:43:53 06/19/2015 10:30:20 [id number] Jennifer Hewitt [place] [address] [address] 08/31/2022 09:45:19 08/31/2022 12:54:43 Low back pain [id number] M54.50 Please follow up with PCP or Urgent Care in 3-5 days if no improvemen t or if any new symptoms occur that are concerning .Call 911 or go to nearest ER if you develop any shortness of breath, chest pain, severe headache, dizziness, or other concerning symptoms Health Concerns Section Related Observation LastModified by Organization Detai ls LastModified Time None Recorded Concern Status LastModified by Organization Details LastModified Time None Recorded Advance Directives Directive None Recorded Payers Encounter Date Sequence Insurance Name Policy Number Policy Denise Covered Member ID Denise Member ID Guarantor Name 12/25/2014 1 [facility] [id number] Love Douglass [id number] Love Douglass 06/19/2015 1 [facility] [id number] Love Douglass [id number] Love Douglass 08/31/2022 1 [facility] [id number] Love Douglass [id number] Love Douglass Notes Date Note Type Note Provider Name and Address Organization Details Recorded Time 3 text/html Back Pain/Injury UCReported bypatient.source of patient informationInformation obtained from patient Location:pain is not radiating Quality:muscle spasms Duration:3 days Aggravating Factors:movement/positioni ng;standing;twisting;walki ng Previous InjuryNo prior injury to affected body part Jennifer Hewitt MD [facility] [place], [address], [place] - [facility] 09/05/2022 08:23:21 OBGyn Episode No OBEpisode recorded.
== END 2024-04-22 15:52 | disposition home or self-care (01) ==
PROVIDERS: PCP Physician Assistant; Visit Provider Orthopaedic Surgery
DX: M25.561 Pain in right knee (principal); G89.29 Other chronic pain
CPT/HCPCS: 20610; 99213

== ENCOUNTER → 2024-04-22 15:15 | Outpatient (BNVA) | payer OTHER, SELFPAY | PROVIDERS: PCP Physician Assistant; Visit Provider Orthopaedic Surgery | DX: M17.11 Unilateral primary osteoarthritis, right knee (principal); G89.29 Other chronic pain | CPT/HCPCS: 20610; J1010; J2003 ==

== ENCOUNTER 2024-05-21 08:00 | Outpatient (AMB) | payer OTHER, SELFPAY ==
--- OUTSIDE RECORDS SUMMARY | 2024-05-21 08:02 | XMS_ITS | Data Portability ---
Author Organization DANYELLE Pardo [facility], [address] Address [address] [place] [address] Assessment No assessment recorded. Plan of Treatment Reminders Order Date Submit Date Provider Last Modified By Organization Details Last Modified Time Details Appointments None recorded. Lab urinalysis, dipstick 2022 023 [place] [address] [facility], [address] [place] [address], [address], 3 12:49:25 test, urine 2022 023 [place] [address] [facility], [address] [place] [address], [address], 12:49:25 Referral None recorded. Procedures None recorded. Surgeries None recorded. Imaging None recorded. Medication Orders cyclobenzap rine 10 mg tablet 2022 023 [id number], [address] [place], [address], 3 12:49:27 naproxen 500 mg tablet 2022 023 [id number], [address] [place], [address], 3 12:49:27 Patient TargetsNo targets recorded. Patient Instructions Encounter Date Encounter Id Patient Instructions Last Modified By Organization Details Last Modified Time 08/31/2022 [id number] back pain: care instructions [place] [address] Not available 08/31/2022 12:49:25 Reason for Referral None Reported. Results Created Date Observation Date Name Description Value Unit Range Abnormal Flag Note LastModifiedBy Organization Detail LastModifiedTime 09/01/19 23 08/31/2022 pregn catarino test, urine Unknown Analyte Normal = Negati ve Not Available 2099eulogio franklin [address], [place], [address], 08/31/2022 11:51:08 09/01/19 23 08/31/2022 pregn catarino test, urine Unknown Analyte negati ve Not Available 2099eulogio franklin [address], [place], [address], 08/31/2022 11:51:08 09/01/19 23 08/31/2022 urina lysis , dipst ick Unknown Analyte Normal = light yellow Not Available 2099eulogio franklin [address], [place], [address], 08/31/2022 11:51:03 09/01/19 23 08/31/2022 urina lysis , dipst ick Unknown Analyte Yellow Not Available [address], [place], [address], 08/31/2022 11:51:03 09/01/19 23 08/31/2022 urina lysis , dipst ick Unknown Analyte Normal = clear Not Available 2099eulogio franklin [address], [place], [address], 08/31/2022 11:51:03 09/01/19 23 08/31/2022 urina lysis , dipst ick Unknown Analyte Clear Not Available [address], [place], [address], 08/31/2022 11:51:03 09/01/19 23 08/31/2022 urina lysis , dipst ick Unknown Analyte Normal = negati ve Not Available eulogio [address], [place], [address], 08/31/2022 11:51:03 09/01/19 23 08/31/2022 urina lysis , dipst ick Unknown Analyte Normal = Negati ve Not Available eulogio franklin [address], [place], [address], 08/31/2022 11:51:03 09/01/19 23 08/31/2022 urina lysis , dipst ick Unknown Analyte Normal = Negati ve Not Available [facility] rigoberto [address], [place], [address], 08/31/2022 11:51:03 09/01/19 23 08/31/2022 urina lysis , dipst ick Unknown Analyte Negati ve Not Available [facility] rigoberto [address], [place], [address], 08/31/2022 11:51:03 09/01/19 23 08/31/2022 urina lysis , dipst ick Unknown Analyte Negati ve Not Available eulogio franklin [address], [place], [address], 08/31/2022 11:51:03 09/01/19 23 08/31/2022 urina lysis , dipst ick Unknown Analyte Negati ve Not Available [facility] rig[facility]to [address], [place], [address], 08/31/2022 11:51:03 09/01/19 23 08/31/2022 urina lysis , dipst ick Unknown Analyte Normal = 1.010, 1.015, 1.020 Not Available eulogio franklin [address], [place], [address], 08/31/2022 11:51:03 09/01/19 23 08/31/2022 urina lysis , dipst ick Unknown Analyte 1.020 Not Available ronnie [address], [place], [address], 08/31/2022 11:51:03 09/01/19 23 08/31/2022 urina lysis , dipst ick Unknown Analyte Normal = Negati ve Not Available eulogio franklin [address], [place], [address], 08/31/2022 11:51:03 09/01/19 23 08/31/2022 urina lysis , dipst ick Unknown Analyte Modera te Not Available eulogio franklin [address], [place], [place], [address], 08/31/2022 11:51:03 09/01/19 23 08/31/2022 urina lysis , dipst ick Unknown Analyte Normal = 6.5, 7.0, 7.5, 8.0 Not Available [facility] [address], [place], [place], [address], 08/31/2022 11:51:03 09/01/19 23 08/31/2022 urina lysis , dipst ick Unknown Analyte 6.5 Not Available [address], [place], [address], 08/31/2022 11:51:03 09/01/19 23 08/31/2022 urina lysis , dipst ick Unknown Analyte Normal = Negati ve Not Available eulogio [address], [place], [address], 08/31/2022 11:51:03 09/01/19 23 08/31/2022 urina lysis , dipst ick Unknown Analyte Negati ve Not Available [address], [place], [address], 08/31/2022 11:51:03 09/01/19 23 08/31/2022 urina lysis , dipst ick Unknown Analyte Normal = 0.2, 1.0 Not Available 2099eulogio franklin [address], [place], [address], 08/31/2022 11:51:03 09/01/19 23 08/31/2022 urina lysis , dipst ick Unknown Analyte 0.2 E.U./d L Not Available [address] [place] [address], [place], [address], 08/31/2022 11:51:03 09/01/19 23 08/31/2022 urina lysis , dipst ick Unknown Analyte Normal = Negati ve Not Available [address] [place] [address], [place], [address], 08/31/2022 11:51:03 09/01/19 23 08/31/2022 urina lysis , dipst ick Unknown Analyte Normal = Negati ve Not Available [address], [place], [address], 08/31/2022 11:51:03 09/01/19 23 08/31/2022 urina lysis , dipst ick Unknown Analyte Negati ve Not Available [address] [place] [address], [place], [address], 08/31/2022 11:51:03 09/01/19 23 08/31/2022 urina lysis , dipst ick Unknown Analyte Negati ve Not Available [address] [place] [address], [place], [address], 08/31/2022 11:51:03 Result Notes None recorded. Problems No Known Problems Procedures Surgical History Date Name Laterality Status Provider Name and Address Organization Details Recorded Time section completed SOPHIA P[facility] 08/31/2022 11:49:52 excision of ganglion cyst completed SOPHIA Pardo [facility] 08/31/2022 11:50:31 Dilation and curettage completed SOPHIA BASSETT - [facility] 08/31/2022 11:50:46 Imaging Results None recorded. [...] height Body mass index (BMI) Body weight Pain severity - 0-10 verbal numeric rating [Score] - Reported Respiratory rate Oxygen saturation Oxygen saturation in Arterial blood by Pulse oximetry Heart rate Body temperature Systolic blood pressure Diastolic blood pressure Provider Name and Address Organization Details Last Updated DateTime 3 167.64 cm 34.1 kg/m2 78239.9 9 g 8 19 /min 99 % 99 % 65 /min 98 [degF] 159 mm[Hg] 81 mm[Hg] SOPHIA [place] [facility] 11:52:05 Social History Question Answer Notes LastModified by Organizat ion Details LastModified Time Tobacco Smoking Status Current Every Day Smoker [facility]LE [facility] 08/31/2022 11:49:37 What Is Your Level Of Alcohol Consumption? None [email or web address] Information not available 08/31/2022 How Much Tobacco Do You Smoke? 0.25 PPD [email or web address] Information not available 08/31/2022 Do You Use Any Illicit Or Recreational Drugs? No Information not available 08/31/2022 Have You Recently Traveled Abroad? No [email or web address] Information not available 08/31/2022 Do You Or Have You Ever Used Any Other Forms Of Tobacco Or Nicotine? No Information not available 08/31/2022 Sex: Unknown Functional Status None recorded. Mental Status None recorded. Family History Relationship Description Onset Age of this Age Resolved Age Notes LastModified by Organization Details LastModified Time Father No current problems or disability [email or web address] Not available 08/31 11:49:15 Mother No current problems or disability [email or web address] Not available 08/31 11:49:15 Medical History No medical history recorded. Gynecological History Statement/Question Response Date of LMP Obstetrics History GPAL:G 0 P 0 0 0 0 Past Encounters Encounter ID Performer Location Encounter Start Date Encounter Closed Date Diagnosis/Indication Diagnosis SNOMED-CT Code Diagnosis ICD10 Code Diagnosis Note [id number] [facility] [address] [place] [address] 12/25/2014 09:34:50 12/25/2014 10:29:33 [id number] [address] [facility] [place] [address] 06/19/2015 09:43:53 06/19/2015 10:30:20 [id number] Jennifer Hewitt MD [address] [facility] [place] [address] 08/31/2022 09:45:19 08/31/2022 12:54:43 Low back pain [id number] M54.50 Please follow up with PCP or [...] ID Denise Member ID Guarantor Name 12/25/[address] [place] [address] [id number] Love Douglass [id number] Love Douglass 06/19/[address] [facility] [id number] Love Douglass [id number] Love Douglass 08/31/[address] [facility] [id number] Love Douglass [id number] Love Douglass Notes Date Note Type Note Provider Name and Address Organization Details Recorded Time 3 text/html Back Pain/Injury UCReported bypatient.source of patient informationInformation obtained from patient Location:pain is not radiating Quality:muscle spasms Duration:3 days Aggravating Factors:movement/positioni ng;standing;twisting;walki ng Previous InjuryNo prior injury to affected body part Jennifer Hewitt MD [facility] [place], [address], [place] - [facility] 09/05/2022 08:23:21 OBGyn Episode No OBEpisode recorded.
--- NOTE | 2024-05-21 08:57 | AM.OFFWIN_ITS ---
Intake Vital Signs 05/21/24 08:59 Weight 211 lb BP 122/80 Blood Pressure Location Lt brachial Position Sitting Pulse 77 Pulse Source Pulse Oximeter Temp 97.6 F Temp Source Oral Pulse Oximetry (%) 99 Oxygen Delivery Method Room Air Intake Visit Reasons: EP ? UTI Intake Note: Patient here for burning on urination, pressure that has been present since Sunday. Patient Tobacco Use Status: Current everyday Tobacco user Allergies No Known Allergies [No Known Allergies*] Allergy (Verified 05/21/24 08:58) Do you need a note to return to daycare/school/sports/work: No HPI HPI Comments History of Present Illness Details She presents to office with UTI symptoms Has hx of chronic hematuria She has seen urologist and had camera scope in April Post procedure she was given an antibiotic for urine cramping pain Last sunday she felt dysuria with and without urinating She said she used an OTC test strip and + leukocytes lit up She decided to come in to be seen +frequency and urgency She admits to sharp pelvic discomfort No fever or chills She denies back pain REPLACED BY [facility] Medical History (Updated 05/21/24 @ 09:09 by Elsa Segovia PA-C) Carpal tunnel syndrome Surgical History (Updated 03/27/24 @ 08:04 by Shasha Ovalles CMA) H/O section Status post cervical polyp removal Social History (Updated 03/27/24 @ 08:05 by Shasha Ovalles CMA) Housing: House Alcohol intake: never Patient Tobacco Use Status: Current everyday Tobacco user Cigarettes Per Day: 5 Years Smoked: 25 e-Cigarette/Vaping Use: Never Used service: No Current occupational status: employed 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 Current occupational exposures/hazards: No Cognitive needs: No Hearing needs: No Vision needs: No Review of Systems Const Denies body aches, Denies chills and Denies fever(s) Card Denies chest pain Resp Denies cough GI Denies diarrhea, Denies nausea and Denies vomiting Reports hematuria, Reports dysuria, Reports pelvic pain, Denies urinary incontinence, Reports urinary hesitancy and Reports urinary urgency Musc Denies back pain Physical Exam Vital Signs: Last Vital Signs Temp 97.6 F 05/21/24 08:59 Pulse 77 05/21/24 08:59 BP 122/80 05/21/24 08:59 Pulse Ox 99 05/21/24 08:59 Oxygen Delivery Method Room Air 05/21/24 08:59 General: Non-toxic, NAD. Speaking full sentences. Skin: Warm dry throughout Respiratory: CTA bilaterally. No wheezes, rales or rhonchi Cardiac: RRR. No murmur Abdominal: BS present x 4. Nontender to palpaton. No CVAT. No distension. No rebound or guarding Neurology: Alert. No aphasia or facial droop. Gait without abnormality Psych: Good mood and affect Results AMB Urinalysis, Automated UA Leukoctes 125 Jojo/uL Last Edit by Hitesh Cerna CCM on 05/21/24 09: 06 UA Nitrite Positive Last Edit by Hitesh Cerna CCM on 05/21/24 09:06 UA Urobilinogen 0.2 mg/dL Last Edit by Hitesh Cerna [facility] on 05/21/24 09:06 UA Protein 0 mg/dL Last Edit by Hitesh Cerna [facility] on 05/21/24 09:06 UA pH 6.0 Last Edit by Hitesh Cerna [facility] on 05/21/24 09:06 UA Blood 80 Espinoza/uL Last Edit by Hitesh Cerna [facility] on 05/21/24 09:06 UA Specific [place] 1.025 Last Edit by Hitesh Cerna CCM on 05/21/24 09:06 UA Ketone Positive Last Edit by Hitesh Cerna CCM on 05/21/24 09:06 UA Bilirubin 1 mg/dL Last Edit by Hitesh Cerna [facility] on 05/21/24 09:06 UA Glucose 500 mg/dL Last Edit by Hitesh Cerna [facility] on 05/21/24 09:06 Results Reviewed Results Reviewed: Laboratory Last Values Urine pH (Auto) 6.0 05/21/24 09:05 Specific [place] (Auto) 1.025 05/21/24 09:05 Urine Protein (Auto) 0 mg/dL 05/21/24 09:05 Glucose (UA)(Auto) 500 mg/dL 05/21/24 09:05 Urine Ketones (Auto) Positive 05/21/24 09:05 Urine Blood (Auto) 80 Espinoza/uL 05/21/24 09:05 Urine Nitrite (Auto) Positive 05/21/24 09:05 Urine Bilirubin (Auto) 1 mg/dL 05/21/24 09:05 Urine Urobilinogen (Auto) 0.2 mg/dL 05/21/24 09:05 Leukocyte Esterase (Auto) 125 Jojo/uL 05/21/24 09:05 Assessment & Plan Assessment & Plan (1) Urinary tract infection: Code(s): N39.0 - Urinary tract infection, site not specified Qualifiers: Hematuria presence: with hematuria Urinary tract infection type: acute cystitis Qualified Code(s): N30.01 - Acute cystitis with hematuria Plan: Patient seen and evaluated. Urine: Lueks, nitrates, blood, Culture sent Keflex to pharmacy Increase fluids Patient gave verbal understanding and had no additional questions or concerns at time of discharge All questions answered Orders: Orders AMB Urinalysis Automated Today Z13.9 - Encounter for screening, unspecified Urine Culture Today N30.01 - Acute cystitis with hematuria Medications: New cephalexin 500 mg PO Q12H 14 caps 0RF Coding Level of Care Code Est Pt Level 3 (72748) Diagnoses Acute cystitis with hematuria N30.01 Hematuria presence: with hematuria Urinary tract infection type: acute cystitis
[2024-05-21 08:59] VITALS: BP 122/80; PULSE 77; TEMP 36.4; O2SAT 99
== END 2024-05-21 09:20 | disposition home or self-care (01) ==
PROVIDERS: PCP Physician Assistant; Visit Provider Physician Assistant
DX: N30.01 Acute cystitis with hematuria (principal); Z13.9 Encounter for screening, unspecified

== ENCOUNTER 2024-05-21 08:00 | Outpatient (REF) | payer OTHER, SELFPAY | END 2024-05-21 08:01 | disposition home or self-care (01) | LOC: HO.LNP 08:00 | PROVIDERS: Visit Provider Physician Assistant | DX: N30.01 Acute cystitis with hematuria (principal) | CPT/HCPCS: 81003; 87086; 87088; 87186 ==

== ENCOUNTER 2024-06-25 08:22 | Outpatient (AMB) | payer OTHER, SELFPAY ==
--- NOTE | 2024-06-25 08:29 | A.OFFPC_ITS ---
Vital Signs 06/25/24 08:35 06/25/24 08:45 Height 5 ft 5.47 in Weight 219 lb 8 oz BMI 36.0 BP 146/94 H 138/96 H Blood Pressure Location Lt brachial Lt brachial Position Sitting Sitting Respiration 16 Pulse 78 Pulse Source Pulse Oximeter Temp 98.1 F Temp Source Oral Pulse Oximetry (%) 95 Oxygen Delivery Method Room Air Intake Visit Reasons: bp and labs Intake Note: Follow up. chest congestion and sinus congestion for one month. Covid at home test negative 2 weeks ago. 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 She has a history of hyperlipidemia, prediabetes and Lyme disease. HEENT: she has been sick for the last 3 weeks. She states had a cold a few weeks ago and started to get better and then the last few days it has started to worsen. No fever, no chills. No n/v/d. She does get a cough from PND. She denies sob or chest pain. She has a preschool aged grandson who lives with her and has been sick a few times. CV: bp today is elevated and has recently been elevated. She is not on any antihypertensives and this was a recheck appointment. We discussed if still elevated we should start medication.. She tells me that she is working on some diet changes. She is interested in [employer]. Her last cholesterol did come back elevated and she is motivated to make lifestyle modifications prior to starting medication for cholesterol. Uro: Recent hematuria. She has scans ordered with Urology. She had to miss the CT appointment due to being sick. 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 She works 2 jobs. She does continue to smoke. No family history of lung cancer. She states that she is up-to-date on mammograms but not with gynecology. She is scheduled. 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 1. Little interest or pleasure in doing things: not at all 2. Feeling down, depressed, or hopeless: not at all 3. Trouble falling or staying asleep, or sleeping too much: not at all 4. Feeling tired or having little energy: several days 5. Poor appetite or overeating: not at all 6. Feeling bad about yourself - or that you are a failure or have let yourself or your family down: not at all 7. Trouble concentrating on things, such as reading the newspaper or watching television: not at all 8. Moving or speaking so slowly that other people could have noticed. Or the opposite - being so fidgety or restless that you have been moving around a lot more than usual: not at all 9. Thoughts that you would be better off or of hurting yourself in some way: not at all Total score: 1 Depression Screening Interpretation: Negative Depression Screening Done: Yes 67589 - PHQ-9 Billing: Yes Source: Developed by Drs. Paco Carrillo, Nicolle Page, Dariusz Rose and colleagues, with an educational lucian from [employer]. Thrive Questionnaire Date Thrive assessed: 06/22/24 I am a: Patient What is your living situation today?: I have a steady place to live Within the past 12 months, did the food you bought not last and you didn't have the money to get more?: Never true Within the past 12 months, did you worry whether your food would run out before you got money to buy more?: Never true Do you have trouble paying for medicines?: No Do you have trouble getting transportation to medical appointments?: No Do you have trouble paying your heating and electricity bill?: No Do you have trouble taking care of your child, family member or friend?: No Do you have trouble with day-to-day activities such as bathing, preparing meals, shopping, managing finances, etc.?: No Are you currently unemployed and looking for a job?: No Are you interested in more education?: No Please select the resources that you would like help with: None Currently or been in a relationship where the following occur: No concerns reported THRIVE Score: 0 AUDIT C Alcohol Use Questionnaire (AUDIT-C) 1. How often do you have a drink containing alcohol?: Never Total Score: 0 JESS-7 AMB Questionnaire JESS-7 Feeling nervous, anxious, or on edge: 0 = Not at all Not being able to stop or control worryin = Not at all Worrying too much about different things: 0 = Not at all Trouble relaxin = Not at all Being so restless that it is hard to sit still: 0 = Not at all Becoming easily annoyed or irritable: 0 = Not at all Feeling afraid as if something awful might happen: 0 = Not at all Total JESS-7 score (0-4 normal; 5-9 mild; 10-14 moderate; 15-21 severe): 0 Source: Developed by Drs. Paco Carrillo, Nicolle Page, Dariusz Rose and colleagues, with an educational lucian from [employer]. JESS-7 Assessment Billing JESS-7 Assessment Tool: JESS-7 Assessment 94032 Physical exam (Primary Care) Vital Signs: Last Vital Signs Temp 98.1 F 06/25/24 08:35 Pulse 78 06/25/24 08:35 Resp 16 06/25/24 08:35 BP 138/96 H 06/25/24 08:45 Pulse Ox 95 06/25/24 08:35 Oxygen Delivery Method Room Air 06/25/24 08:35 BMI result Body Mass Index 36.0 Tobacco/Smoking Status: Tobacco use Status Tobacco use date assessed 06/25/24 06/25/24 08:31 Patient Tobacco Use Status Current everyday Tobacco 06/25/24 08:29 e-Cigarette/Vaping Use Never Used 06/25/24 08:29 PHQ-9: PHQ-9 Score PHQ-9: Total score 1 06/25/24 08:45 Depression Screening Interpretation: Negative Thrive Assessment: Date of Thrive Assessment Date Thrive assessed 06/22/24 06/25/24 08:29 Currently or been in a relationship where the following occur: No concerns r eported Const Orientation/consciousness: patient oriented x3 HENMT Other: Nasal mucosa erythematous and edematous. Purulent drainage noted. Maxillary sinus tenderness present. Ears: hearing grossly normal bilaterally, external ears normal and TM's normal bilaterally Neck Thyroid: Thyroid normal Lymphatic: no lymphadenopathy noted Resp Auscultation: clear to auscultation bilaterally Cardio Rate: regular rate Rhythm: regular rhythm Heart sounds: S1 normal heart sound present, S2 normal heart sound present and Murmur heart sound present GI Inspection: Yes normal to inspection Palpation (GI): Soft to palpation and Other GI palpation findings present (nontender, no cva tenderness) Auscultation: normoactive bowel sounds Rectal Exam - Female: deferred Skin General skin exam: no rashes or lesions noted Neuro General: patient oriented x3, gait normal and no focal motor deficits Results Reviewed Results Reviewed: Laboratory Tests 12/24/23 03/27/24 07:15 08:57 WBC 8.6 RBC 4.63 Hgb 13.9 Hct 41.0 Plt Count 273 Creatinine 0.81 Estimated GFR > 60 Fasting Glucose 130 H Hemoglobin A1c % 6.3 H Uric Acid 5.2 Calcium 9.8 Magnesium 1.9 Iron 137 TIBC 263 % Saturation 52 H Unsat Iron Binding 126 Ferritin 141 Total Bilirubin 0.8 AST 18 ALT 25 Alkaline Phosphatase 62 C-Reactive Protein 0.33 Total Protein 6.5 Albumin 4.1 Triglycerides 258 H Cholesterol 222 H LDL Cholesterol, Calc 134 H HDL Cholesterol 37 L Vitamin B12 212 Folate 9.2 TSH 1.42 Coding Level of Care Code Est Pt Level 4 (07157) Complex EM visit Add On G2211 Diagnoses Prediabetes R73.03 Dyslipidemia E78.5 Murmur R01.1 HTN (hypertension) I10 Bacterial sinusitis J32.9; B96.89 Additional Codes JESS-7 Assessment Billing - JESS-7 Assessment Tool: JESS-7 Assessment 73987 ([id number]) PHQ-9 - 07087 - PHQ-9 Billing: Yes ([id number]) Assessment & Plan Assessment & Plan (1) Prediabetes: Code(s): R73.03 - Prediabetes Category: Medical Plan: Last A1c was 6.3. Forgot to get labs prior to today. (2) Dyslipidemia: Code(s): E78.5 - Hyperlipidemia, unspecified Category: Medical Plan: She forgot to recheck her lipids prior to today's appointment. (3) Murmur: Code(s): R01.1 - Cardiac murmur, unspecified Category: Medical Plan: An echo was ordered for her at our last visit but she has not heard. I will reorder this again today as the murmur does appear to be a bit louder. Denies any swelling or chest pain. She will let me know if anything changes. (4) HTN (hypertension): Code(s): I10 - Essential (primary) hypertension Category: Medical Plan: We will treat with lisinopril. Discussed risks and benefits and adverse effects of this medication including cough, electrolyte abnormality etc.. We will check BMP a couple of weeks after starting medication. Return in 3-4 weeks for blood pressure check. (5) Bacterial sinusitis: Code(s): J32.9 - Chronic sinusitis, unspecified; B96.89 - Other specified bacterial agents as the cause of diseases classified elsewhere Category: Medical Plan: We will start Augmentin. Discussed risks and benefits and adverse effects of this medication including GI upset. Advised to use Flonase as she has a home. Orders: Orders CA echo transthoracic complete Today E78.5 - Hyperlipidemia, unspecified, I10 - Essential (primary) hypertension, R01.1 - Cardiac murmur, unspecified, R73.03 - Prediabetes Medications: New lisinopril 10 mg PO DAILY 90 tabs 1RF amoxicillin-pot clavulanate 875-125 mg 1 tab PO BID 20 tabs 0RF
[2024-06-25 08:35] VITALS: BP 146/94; PULSE 78; RESP 16; TEMP 36.7; O2SAT 95; BMI 36.0
[2024-06-25 08:45] VITALS: BP 138/96
--- OUTSIDE RECORDS SUMMARY | 2024-06-25 09:00 | XMS_ITS | Data Portability ---
Author Organization [facility] [employer] [employer], [address] Address [address] [place] [address] Assessment No assessment recorded. Plan of Treatment Reminders Order Date Submit Date Provider Last Modified By Organization Details Last Modified Time Details Appointments None recorded. Lab urinalysis, dipstick 2022 023 [place] [address] [facility], [address] [place] [address], [phone], 12:49:25 test, urine 2022 023 [place] [address] [facility], [address] [place] [address], [phone], 12:49:25 Referral None recorded. Procedures None recorded. Surgeries None recorded. Imaging None recorded. Medication Orders cyclobenzap rine 10 mg tablet 2022 023 [id number], [address] [place], [address], 3 12:49:27 naproxen 500 mg tablet 2022 023 [id number], [address] [place], [address], 3 12:49:27 Patient TargetsNo targets recorded. Patient Instructions Encounter Date Encounter Id Patient Instructions Last Modified By Organization Details Last Modified Time 08/31/2022 [id number] back pain: care instructions [place] [address] Not available 08/31/2022 12:49:25 Reason for Referral None Reported. Results Created Date Observation Date Name Description Value Unit Range Abnormal Flag Note LastModifiedBy Organization Detail LastModifiedTime 09/01/19 23 08/31/2022 pregn catarino test, urine Unknown Analyte Normal = Negati ve Not Available 2099eulogio franklin [address], [place], [address], 08/31/2022 11:51:08 09/01/19 23 08/31/2022 pregn catarino test, urine Unknown Analyte negati ve Not Available 2099eulogio franklin [address], [place], [address], 08/31/2022 11:51:08 09/01/19 23 08/31/2022 urina lysis , dipst ick Unknown Analyte Normal = light yellow Not Available 2099eulogio franklin [address], [place], [address], 08/31/2022 11:51:03 09/01/19 23 08/31/2022 urina lysis , dipst ick Unknown Analyte Yellow Not Available [address], [place], [address], 08/31/2022 11:51:03 09/01/19 23 08/31/2022 urina lysis , dipst ick Unknown Analyte Normal = clear Not Available 2099eulogio franklin [address], [place], [address], 08/31/2022 11:51:03 09/01/19 23 08/31/2022 urina lysis , dipst ick Unknown Analyte Clear Not Available [address], [place], [address], 08/31/2022 11:51:03 09/01/19 23 08/31/2022 urina lysis , dipst ick Unknown Analyte Normal = negati ve Not Available eulogio [address], [place], [address], 08/31/2022 11:51:03 09/01/19 23 08/31/2022 urina lysis , dipst ick Unknown Analyte Normal = Negati ve Not Available eulogio franklin [address], [place], [address], 08/31/2022 11:51:03 09/01/19 23 08/31/2022 urina lysis , dipst ick Unknown Analyte Normal = Negati ve Not Available [facility] rigoberto [address], [place], [address], 08/31/2022 11:51:03 09/01/19 23 08/31/2022 urina lysis , dipst ick Unknown Analyte Negati ve Not Available [facility] rigoberto [address], [place], [address], 08/31/2022 11:51:03 09/01/19 23 08/31/2022 urina lysis , dipst ick Unknown Analyte Negati ve Not Available eulogio franklin [address], [place], [address], 08/31/2022 11:51:03 09/01/19 23 08/31/2022 urina lysis , dipst ick Unknown Analyte Negati ve Not Available [facility] rigoberto [address], [place], [address], 08/31/2022 11:51:03 09/01/19 23 08/31/2022 urina lysis , dipst ick Unknown Analyte Normal = 1.010, 1.015, 1.020 Not Available eulogio franklin [address], [place], [address], 08/31/2022 11:51:03 09/01/19 23 08/31/2022 urina lysis , dipst ick Unknown Analyte 1.020 Not Available ronnie [address], [place], [address], 08/31/2022 11:51:03 09/01/19 23 08/31/2022 urina lysis , dipst ick Unknown Analyte Normal = Negati ve Not Available eulogio franklin [address], [place], [address], 08/31/2022 11:51:03 09/01/19 23 08/31/2022 urina lysis , dipst ick Unknown Analyte Modera te Not Available eulogio franklin [address], [place], [place], [address], 08/31/2022 11:51:03 09/01/19 23 08/31/2022 urina lysis , dipst ick Unknown Analyte Normal = 6.5, 7.0, 7.5, 8.0 Not Available [facility] [address], [place], [place], [address], 08/31/2022 11:51:03 09/01/19 23 08/31/2022 urina lysis , dipst ick Unknown Analyte 6.5 Not Available [address], [place], [address], 08/31/2022 11:51:03 09/01/19 23 08/31/2022 urina lysis , dipst ick Unknown Analyte Normal = Negati ve Not Available eulogio [address], [place], [address], 08/31/2022 11:51:03 09/01/19 23 08/31/2022 urina lysis , dipst ick Unknown Analyte Negati ve Not Available [address], [place], [address], 08/31/2022 11:51:03 09/01/19 23 08/31/2022 urina lysis , dipst ick Unknown Analyte Normal = 0.2, 1.0 Not Available 2099eulogio franklin [address], [place], [address], 08/31/2022 11:51:03 09/01/19 23 08/31/2022 urina lysis , dipst ick Unknown Analyte 0.2 E.U./d L Not Available [address] [place] [address], [place], [address], 08/31/2022 11:51:03 09/01/19 23 08/31/2022 urina lysis , dipst ick Unknown Analyte Normal = Negati ve Not Available [address] [place] [address], [place], [address], 08/31/2022 11:51:03 09/01/19 23 08/31/2022 urina lysis , dipst ick Unknown Analyte Normal = Negati ve Not Available [address], [place], [address], 08/31/2022 11:51:03 09/01/19 23 08/31/2022 urina lysis , dipst ick Unknown Analyte Negati ve Not Available [address] [place] [address], [place], [address], 08/31/2022 11:51:03 09/01/19 23 08/31/2022 urina lysis , dipst ick Unknown Analyte Negati ve Not Available [address] [place] [address], [place], [address], 08/31/2022 11:51:03 Result Notes None recorded. Problems [...] Updated DateTime 3 167.64 cm 34.1 kg/m2 60689.9 9 g 8 19 /min 99 % 99 % 65 /min 98 [degF] 159 mm[Hg] 81 mm[Hg] SOPHIA [place] [facility] 11:52:05 Social History Question Answer Notes LastModified by Organizat ion Details LastModified Time Tobacco Smoking Status Current Every Day Smoker [facility] 08/31/2022 11:49:37 What Is Your Level Of Alcohol Consumption? None [email or web address] Information not available 08/31/2022 How Much Tobacco Do You Smoke? 0.25 PPD [email or web address] Information not available 08/31/2022 Do You Use Any Illicit Or Recreational Drugs? No [email or web address] Information not available 08/31/2022 Have You Recently Traveled Abroad? No [email or web address] Information not available 08/31/2022 Do You Or Have You Ever Used Any Other Forms Of Tobacco Or Nicotine? No [email or web address] Information not available 08/31/2022 Sex: Unknown Functional Status None recorded. Mental Status None recorded. Family History Relationship Description Onset Age of this Age Resolved Age Notes LastModified by Organization Details LastModified Time Father No current problems or disability [email or web address] Not available 08/31 11:49:15 Mother No current problems or disability [email or web address] Not available 08/31 11:49:15 Medical History No medical history recorded. Gynecological History Statement/Question Response Date of LMP Obstetrics History GPAL:G 0 P 0 0 0 0 Past Encounters Encounter ID Performer Location Encounter Start Date Encounter Closed Date Diagnosis/Indication Diagnosis SNOMED-CT Code Diagnosis ICD10 Code Diagnosis Note [id number] [facility] [address] [place] [address] 12/25/2014 09:34:50 12/25/2014 10:29:33 [id number] [facility] [address] [place] [address] 06/19/2015 09:43:53 06/19/2015 10:30:20 [id number] Jennifer Hewitt MD [facility] [address] [place] [address] 08/31/2022 09:45:19 08/31/2022 12:54:43 Low back pain [id number] M54.50 Please follow up with PCP or [...] ID Denise Member ID Guarantor Name 12/25/[address] [place] [address] [id number] Love Douglass [id number] Love Spiveyue 06/19/2015 1 [facility] [id number] Love Spiveyue [id number] Lovemarie Spiveyue 08/31/2022 1 [facility] [id number] Love Spiveyue [id number] Love Spiveyue Notes Date Note Type Note Provider Name and Address Organization Details Recorded Time 3 text/html Back Pain/Injury UCReported bypatient.source of patient informationInformation obtained from patient Location:pain is not radiating Quality:muscle spasms Duration:3 days Aggravating Factors:movement/positioni ng;standing;twisting;walki ng Previous InjuryNo prior injury to affected body part Jennifer Hewitt MD [address] [place], [address], [place] - [facility] 09/05/2022 08:23:21 OBGyn Episode No OBEpisode recorded.
== END 2024-06-25 09:00 | disposition home or self-care (01) ==
LOC: HO.HMCFM 08:23
PROVIDERS: Visit Provider Physician Assistant
DX: R73.03 Prediabetes (principal); E78.5 Hyperlipidemia, unspecified; R01.1 Cardiac murmur, unspecified; I10 Essential (primary) hypertension; J32.9 Chronic sinusitis, unspecified; B96.89 Other specified bacterial agents as the cause of diseases classified elsewhere

== ENCOUNTER → 2024-06-25 08:22 | Outpatient (BNVA) | payer OTHER, SELFPAY | PROVIDERS: Visit Provider Physician Assistant | DX: R73.03 Prediabetes (principal); E78.5 Hyperlipidemia, unspecified; R01.1 Cardiac murmur, unspecified; I10 Essential (primary) hypertension; J32.9 Chronic sinusitis, unspecified; B96.89 Other specified bacterial agents as the cause of diseases classified elsewhere | CPT/HCPCS: 96127 ==

== ENCOUNTER → 2024-07-17 07:52 | Outpatient (REF) | payer OTHER, SELFPAY ==
--- NOTE | 2024-07-17 07:55 | CA_ITS ---
Transthoracic Echocardiogram Patient (Last, First, Middle): Love Douglass, Gender: Female Date of : 1970 Age: 54 Procedure Date: 07/17/2024 Procedure Type: Transthoracic Echocardiogram Location: OP Height: 167.64 cm Weight: 95.71 kg BSA: 2.05 m2 Heart Rate: 71 bpm BP: 142 / 80 mmHg Manager Freelance: MARIMAR/JESE Referring MD: Gabby Mathew PA-C Fruit Rancher: Robert Desouza MD Symptoms: E78.5 - Hyperlipidemia, unspecified Study Quality: Adequate ECG Rhythm: Sinus Conclusions: - 1. Normal LV ejection fraction of 60 65% with impaired relaxation filling pattern 2. Calcific aortic valve disease noted with mild aortic stenosis and aortic regurgitation 3. Normal RV systolic pressure 4. No gross pericardial effusion Findings Left Ventricle Normal left ventricular size, thickness, and systolic function. The visually estimated ejection fraction is between 60-65%. Spectral Doppler is indicative of an impaired relaxation filling pattern. E/E prime ratio is between 8 and 15 consistent with indeterminate filling pressures. Right Ventricle Normal right ventricular cavity size and systolic function. Atria Both atria are normal in size. There is no evidence of interatrial shunt. Aortic Valve There is mild calcification of the aortic valve. There is mild aortic valve stenosis. There is mild aortic valve regurgitation. Mitral Valve There is mild anterior and posterior mitral leaflet thickening. There is mild mitral annular calcification. There is no mitral valve regurgitation. There is no mitral valve stenosis. Pulmonic Valve The pulmonic valve was not well visualized. Tricuspid Valve Likely normal tricuspid valve structure and function. There is trace tricuspid valve regurgitation. The right ventricular systolic pressure is normal. The right ventricular systolic pressure is 11 mmHg. Normal right atrial pressure. There is no evidence of pulmonary hypertension. Great Vessels All visible segments of the aorta are normal in size. The pulmonary artery was not well visualized. Venous The inferior vena cava is normal in size and collapses greater than 50% with inspiration. Pericardium/Pleural There is no evidence of pericardial effusion. Prior Study Comparison No prior study available for comparison. Measurements 2D Linear Measurements IVSd: 1.08 0.6-0.9/0.6-1.0 cm LVIDd: 4.51 3.9-5.3/4.2-5.9 cm LVIDd Index: 2.20 2.4-3.2/2.2-3.1 cm/m2 LVIDs: 2.93 2.0-3.6 cm LVPWd: 0.77 0.7-1.1 cm LA Diam: 3.60 2.7-3.8/3.0-4.0 cm LAIDs Index: 1.76 1.5-2.3 cm/m2 LV Mass: 171.77 67-162/88-224 g LV Mass Index: 83.79 43-95/49-115 g/m2 LVOT Diam: 2.00 3.0+(-)1.3 cm 2D Systolic Function EF 4C: 64.20 >55% EF 2C: 62.60 >55% EF BiP: 62.70 >55% Mitral Valve MV Pk E: 0.99 MV PK A: 1.17 MV Decel Time: 279.00 E/A: 0.80 E'Lateral: 7.72 E'Medial: 6.64 E/E' Med: 14.80 E/E' Lat: 12.80 PHT: 82.00 MVA PHT: 2.68 Decel Independence: 3.52 Aortic Valve AoV Pk Rosalino: 2.08 AoV Mn Rosalino: 1.45 AoV VTI: 0.49 AoV Pk Grad: 17.00 Aov Mn Grad: 9.00 LAMONT Cont.VTI: 1.89 AI Pk Rosalino: 4.24 AI Independence: 1.36 LVOT LVOT Pk Rosalino: 1.24 LVOT Mn Rosalino: 0.95 LVOT VTI: 0.29 LVOT Pk Grad: 6.00 LVOT Mn Grad: 4.00 LVOT Diam: 2.00 LVOT Area: 3.14 Diastolic Function MV Pk E: 0.99 MV Pk A: 1.17 E/A: 0.80 E'Medial: 6.64 E/E' Med: 14.80 E' Laterial: 7.72 E/E' Lat: 12.80 Right Ventricle TAPSE (mm): 25.20 TVS' Rosalino: 8.81 Tricuspid Valve TR Pk Rosalino: 1.45 TR Pk Grad: 8.00 RA Press: 3.00 RVSP: 11.00 Great Vessels Aorta Sinus of Valsalva: 3.30 2.0-3.5 cm Ao Asc: 3.40 2.1-3.4 cm Ao Arch: 3.30 Pulmonary Valve PV Pk Rosalino: 1.05 Peak PV Grad: 4.00 Updated in Other Vendor System with Status of Final Robert Desouza MD electronically signed on 07/17/2024 5:00:49 PM with status of Final
--- OUTSIDE RECORDS SUMMARY | 2024-07-17 07:58 | XMS_ITS | Data Portability ---
Author Organization DANEYLLE [facility]ardo [facility], [address] Address [address] [place] [address] Assessment No assessment recorded. Plan of Treatment Reminders Order Date Submit Date Provider Last Modified By Organization Details Last Modified Time Details Appointments None recorded. Lab urinalysis, dipstick 2022 023 [place] [address] [address], [address] [place] [address], [address], 12:49:25 test, urine 2022 023 [place] [address] [address], [address] [place] [address], [address], 12:49:25 Referral None recorded. Procedures None recorded. Surgeries None recorded. Imaging None recorded. Medication Orders cyclobenzap rine 10 mg tablet 2022 023 [id number], [address] [place], [address], 3 12:49:27 naproxen 500 mg tablet 2022 023 [id number], [address] [place], [address], 3 12:49:27 Patient TargetsNo targets recorded. Patient Instructions Encounter Date Encounter Id Patient Instructions Last Modified By Organization Details Last Modified Time 08/31/2022 [id number] back pain: care instructions [place] [id number] Not available 08/31/2022 12:49:25 Reason for Referral None Reported. Results Created Date Observation Date Name Description Value Unit Range Abnormal Flag Note LastModifiedBy Organization Detail LastModifiedTime 09/01/19 23 08/31/2022 pregn catarino test, urine Unknown Analyte Normal = Negati ve Not Available 2099eulogio franklin [address], [place], [address], 08/31/2022 11:51:08 09/01/19 23 08/31/2022 pregn catarino test, urine Unknown Analyte negati ve Not Available 2099eulogio franklin [address], [place], [address], 08/31/2022 11:51:08 09/01/19 23 08/31/2022 urina lysis , dipst ick Unknown Analyte Normal = light yellow Not Available 2099eulogio franklin [address], [place], [address], 08/31/2022 11:51:03 09/01/19 23 08/31/2022 urina lysis , dipst ick Unknown Analyte Yellow Not Available [address], [place], [address], 08/31/2022 11:51:03 09/01/19 23 08/31/2022 urina lysis , dipst ick Unknown Analyte Normal = clear Not Available 2099eulogio franklin [address], [place], [address], 08/31/2022 11:51:03 09/01/19 23 08/31/2022 urina lysis , dipst ick Unknown Analyte Clear Not Available [address], [place], [address], 08/31/2022 11:51:03 09/01/19 23 08/31/2022 urina lysis , dipst ick Unknown Analyte Normal = negati ve Not Available eulogio [address], [place], [address], 08/31/2022 11:51:03 09/01/19 23 08/31/2022 urina lysis , dipst ick Unknown Analyte Normal = Negati ve Not Available eulogio franklin [address], [place], [address], 08/31/2022 11:51:03 09/01/19 23 08/31/2022 urina lysis , dipst ick Unknown Analyte Normal = Negati ve Not Available [facility] rigoberto [address], [place], [address], 08/31/2022 11:51:03 09/01/19 23 08/31/2022 urina lysis , dipst ick Unknown Analyte Negati ve Not Available [facility] rigoberto [address], [place], [address], 08/31/2022 11:51:03 09/01/19 23 08/31/2022 urina lysis , dipst ick Unknown Analyte Negati ve Not Available eulogio franklin [address], [place], [address], 08/31/2022 11:51:03 09/01/19 23 08/31/2022 urina lysis , dipst ick Unknown Analyte Negati ve Not Available [facility] rigoberto [address], [place], [address], 08/31/2022 11:51:03 09/01/19 23 08/31/2022 urina lysis , dipst ick Unknown Analyte Normal = 1.010, 1.015, 1.020 Not Available eulogio franklin [address], [place], [address], 08/31/2022 11:51:03 09/01/19 23 08/31/2022 urina lysis , dipst ick Unknown Analyte 1.020 Not Available ronnie [address], [place], [address], 08/31/2022 11:51:03 09/01/19 23 08/31/2022 urina lysis , dipst ick Unknown Analyte Normal = Negati ve Not Available eulogio franklin [address], [place], [address], 08/31/2022 11:51:03 09/01/19 23 08/31/2022 urina lysis , dipst ick Unknown Analyte Modera te Not Available eulogio franklin [address], [place], [place], [address], 08/31/2022 11:51:03 09/01/19 23 08/31/2022 urina lysis , dipst ick Unknown Analyte Normal = 6.5, 7.0, 7.5, 8.0 Not Available [facility] [address], [place], [place], [address], 08/31/2022 11:51:03 09/01/19 23 08/31/2022 urina lysis , dipst ick Unknown Analyte 6.5 Not Available [address], [place], [address], 08/31/2022 11:51:03 09/01/19 23 08/31/2022 urina lysis , dipst ick Unknown Analyte Normal = Negati ve Not Available eulogio [address], [place], [address], 08/31/2022 11:51:03 09/01/19 23 08/31/2022 urina lysis , dipst ick Unknown Analyte Negati ve Not Available [address], [place], [address], 08/31/2022 11:51:03 09/01/19 23 08/31/2022 urina lysis , dipst ick Unknown Analyte Normal = 0.2, 1.0 Not Available 2099eulogio franklin [address], [place], [address], 08/31/2022 11:51:03 09/01/19 23 08/31/2022 urina lysis , dipst ick Unknown Analyte 0.2 E.U./d L Not Available [address] [place] [address], [place], [address], 08/31/2022 11:51:03 09/01/19 23 08/31/2022 urina lysis , dipst ick Unknown Analyte Normal = Negati ve Not Available [address] [place] [address], [place], [address], 08/31/2022 11:51:03 09/01/19 23 08/31/2022 urina lysis , dipst ick Unknown Analyte Normal = Negati ve Not Available [address], [place], [address], 08/31/2022 11:51:03 09/01/19 23 08/31/2022 urina lysis , dipst ick Unknown Analyte Negati ve Not Available [address] [place] [address], [place], [address], 08/31/2022 11:51:03 09/01/19 23 08/31/2022 urina lysis , dipst ick Unknown Analyte Negati ve Not Available [address] [place] [address], [place], [address], 08/31/2022 11:51:03 Result Notes None recorded. Problems [...] Updated DateTime 3 167.64 cm 34.1 kg/m2 01860.9 9 g 8 19 /min 99 % 99 % 65 /min 98 [degF] 159 mm[Hg] 81 mm[Hg] SOPHIA [facility] 11:52:05 Social History Question Answer Notes LastModified by Organizat ion Details LastModified Time Tobacco Smoking Status Current Every Day Smoker [facility] 08/31/2022 11:49:37 What Is Your Level Of Alcohol Consumption? None [email or web address] Information not available 08/31/2022 How Much Tobacco Do You Smoke? 0.25 PPD [email or web address] Information not available 08/31/2022 Do You Use Any Illicit Or Recreational Drugs? No [email or web address] Information not available 08/31/2022 Have You Recently Traveled Abroad? No [email or web address] Information not available 08/31/2022 Do You Or Have You Ever Used Any Other Forms Of Tobacco Or Nicotine? No Information not available 08/31/2022 Sex: Unknown Functional Status None recorded. Mental Status None recorded. Family History Relationship Description Onset Age of this Age Resolved Age Notes LastModified by Organization Details LastModified Time Father No current problems or disability [email or web address] Not available 08/31 11:49:15 Mother No current problems or disability Not available 08/31 11:49:15 Medical History No medical history recorded. Gynecological History Statement/Question Response Date of LMP Obstetrics History GPAL:G 0 P 0 0 0 0 Past Encounters Encounter ID Performer Location Encounter Start Date Encounter Closed Date Diagnosis/Indication Diagnosis SNOMED-CT Code Diagnosis ICD10 Code Diagnosis Note [id number] [facility] [address] [place] [address] 12/25/2014 09:34:50 12/25/2014 10:29:33 [id number] [facility] [address] [place] [address] 06/19/2015 09:43:53 06/19/2015 10:30:20 [id number] Jennifer Hewitt MD [facility] [address] [place] [address] 08/31/2022 09:45:19 08/31/2022 12:54:43 Low back pain [id number] M54.50 Please follow up with PCP or [...] ID Denise Member ID Guarantor Name 12/25/[address] [place] [address] [id number] Love Douglass [id number] Love Spiveyue 06/19/2015 1 [facility] [id number] Love Spiveyue [id number] Lovemarie Spiveyue 08/31/2022 1 [facility] [id number] Love Spiveyue [id number] Love Spiveyue Notes Date Note Type Note Provider Name and Address Organization Details Recorded Time 3 text/html Back Pain/Injury UCReported bypatient.source of patient informationInformation obtained from patient Location:pain is not radiating Quality:muscle spasms Duration:3 days Aggravating Factors:movement/positioni ng;standing;twisting;walki ng Previous InjuryNo prior injury to affected body part Jennifer Hewitt MD [address] [place], [address], [place] - [facility] 09/05/2022 08:23:21 OBGyn Episode No OBEpisode recorded.
== END ==
LOC: HO.CARD 07:52
PROVIDERS: Visit Provider Physician Assistant
DX: R01.1 Cardiac murmur, unspecified (principal); I10 Essential (primary) hypertension; R73.03 Prediabetes; E78.5 Hyperlipidemia, unspecified
CPT/HCPCS: 93306

== ENCOUNTER → 2024-07-17 07:55 | Outpatient (BNV) | payer OTHER, SELFPAY | PROVIDERS: Visit Provider Internal Medicine Cardiovascular Disease | DX: I35.2 Nonrheumatic aortic (valve) stenosis with insufficiency (principal) | CPT/HCPCS: 93306 ==

== ENCOUNTER 2024-07-23 06:08 | Outpatient (REF) | payer OTHER, SELFPAY ==
[2024-07-23 07:26] LABS: Estimated Average Glucose 140 mg/dL; Hemoglobin A1C 180.4841 umol/L; Hemoglobin A1c % 6.5 % (<6.0); Total Hemoglobin (HGBA1C) 3810.5149 umol/L
[2024-07-23 08:03] LABS: Alanine Aminotransferase 24 U/L (0-31); Albumin Level 4.1 g/dL (3.5-5.0); Alkaline Phosphatase 67 U/L (39-117); Anion Gap 12 (12-20); Aspartate Amino Transferase 19 U/L (5-31); Bilirubin Total 0.9 mg/dL (0.0-1.0); Blood Urea Nitrogen 15 mg/dL (9-16); Calcium 9.4 mg/dL (8.4-10.2); Carbon Dioxide 23 mmol/L (22-29); Chloride 108 mmol/L (96-108); Cholesterol 232 mg/dL (<200); Estimated Glomerular Filt Rate > 60; Glucose Fasting 141 mg/dL (60-99); HDL Cholesterol 37 mg/dL (>40); LDL Cholesterol Calculated 157 mg/dL (<100); Potassium 4.3 mmol/L (3.3-5.1); Sodium 139 mmol/L (135-145); Total Protein 6.5 g/dL (6.5-8.0); Triglycerides 191 mg/dL (<150)
== END 2024-07-23 06:09 | disposition home or self-care (01) ==
LOC: HO.LAB 06:08
PROVIDERS: Urology; PCP Physician Assistant; Visit Provider Physician Assistant
DX: R73.03 Prediabetes (principal); E78.5 Hyperlipidemia, unspecified
CPT/HCPCS: 36415; 80053; 80061; 83036

== ENCOUNTER 2024-07-30 08:15 | Outpatient (AMB) | payer OTHER, SELFPAY ==
--- NOTE | 2024-07-30 08:23 | A.OFFVIS_ITS ---
Intake Visit Reasons: OV- RT knee pain, last inj 04/22/24 Intake Note: Love is a 54 year old female who presents today for a follow up visit of her chronic right knee pain. At her last visit on 04/22/24 the patient was given a cortisone injection. Patient states she got about 2.5-3 months of relief of her and wishes to repeat it today. She continues with her home exercise program. She takes Celebrex as needed for discomfort. She wishes to hold off on surgery if at all possible. Allergies No Known Allergies [No Known Allergies*] Allergy (Verified 06/25/24 08:33) Medication List - Last Reconciled 07/30/24 by Victor Hugo Abrams MD atorvastatin 10 mg PO BEDTIME blood sugar diagnostic (FreeStyle Lite Strips) Use once daily As directed to check blood glucose blood-glucose meter (FreeStyle Lite Meter kit) Use daily As directed to check blood sugars celecoxib (Celebrex) 50 mg PO BID lancets (FreeStyle Lancets) use once daily as directed to check blood glucose lisinopril 10 mg PO DAILY mecobalamin (vitamin B12) (B12 Active) 1,000 mcg PO DAILY [facility] Medical History (Updated 07/30/24 @ 08:49 by Victor Hugo Abrams MD) Carpal tunnel syndrome Surgical History (Updated 03/27/24 @ 08:04 by Shasha Ovalles CMA) H/O section Status post cervical polyp removal Social History (Updated 03/27/24 @ 08:05 by Shasha Ovalles CMA) Housing: House Alcohol intake: never Patient Tobacco Use Status: Current everyday Tobacco user Cigarettes Per Day: 5 Years Smoked: 25 e-Cigarette/Vaping Use: Never Used service: No Current occupational status: employed 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 Current occupational exposures/hazards: No Cognitive needs: No Hearing needs: No Vision needs: No Physical Exam Const Other: Well-nourished well-developed very friendly female awake alert and oriented x3 in no acute distress Extrem Other: Bilateral lower extremity examination shows good capillary refill, no skin lesions noted, normal sensation light touch Right knee examination shows a minimal effusion, mild crepitus with of motion, pain with range motion, no instability Office Procedures AMB Joint Injection/Aspiration Joint Injection/Aspiration Primary Site: right knee Prep: site was prepped using aseptic technique Injected: 40 mg of, DepoMedrol and 1% plain lidocaine Procedure: The patient tolerated the procedure well Coding - Large joint Procedure code (CPT) selection complete Assessment & Plan Assessment & Plan (1) Arthritis of right knee: Code(s): M17.11 - Unilateral primary osteoarthritis, right knee Category: Medical Plan Ms. Douglass presents with right knee pain due to osteoarthritis. The risks and benefits of a right knee cortisone injection were discussed at length with the patient. The patient wished to proceed. She tolerated the injection well. She will continue with her home exercise program. She will contact me prior to her follow-up appointment in 3 months should any questions or concerns arise. Feel free to call me at any time should questions regarding her orthopedic management arise. I spent 22 minutes in reviewing the patient's records and imaging studies, seeing the patient and documenting in the medical record. Orders: Orders AMB Joint Injection/Aspiration Today M17.11 - Unilateral primary osteoarthritis, right knee Coding Level of Care Code Est Pt Level 3 (93915) Complex EM visit Add On G2211 Diagnoses Arthritis of right knee M17.11 CPT Codes Coding - Large joint: 14035 - Large joint ([id number])
--- OUTSIDE RECORDS SUMMARY | 2024-07-30 08:31 | XMS_ITS | Data Portability ---
Author Organization DANYELLE Pardo [facility], [address] Address [address] [place] [address] Assessment No assessment recorded. Plan of Treatment Reminders Order Date Submit Date Provider Last Modified By Organization Details Last Modified Time Details Appointments None recorded. Lab urinalysis, dipstick 2022 023 [place] [id number] [facility], [address] [place] [address], [address], 12:49:25 test, urine 2022 023 [place] [address] [facility], [address] [place] [address], [address], 12:49:25 Referral None recorded. Procedures None recorded. Surgeries None recorded. Imaging None recorded. Medication Orders cyclobenzap rine 10 mg tablet 2022 023 [id number], [address] [place], [address], 3 12:49:27 naproxen 500 mg tablet 2022 023 [id number], [address] [place], [address], 3 12:49:27 Patient TargetsNo targets recorded. Patient Instructions Encounter Date Encounter Id Patient Instructions Last Modified By Organization Details Last Modified Time 08/31/2022 [id number] back pain: care instructions [place] [id number] Not available 08/31/2022 12:49:25 Reason for Referral None Reported. Results Created Date Observation Date Name Description Value Unit Range Abnormal Flag Note LastModifiedBy Organization Detail LastModifiedTime 09/01/19 23 08/31/2022 pregn catarino test, urine Unknown Analyte Normal = Negati ve Not Available 2099eulogio franklin [address], [place], [address], 08/31/2022 11:51:08 09/01/19 23 08/31/2022 pregn catarino test, urine Unknown Analyte negati ve Not Available 2099eulogio franklin [address], [place], [address], 08/31/2022 11:51:08 09/01/19 23 08/31/2022 urina lysis , dipst ick Unknown Analyte Normal = light yellow Not Available 2099eulogio franklin [address], [place], [address], 08/31/2022 11:51:03 09/01/19 23 08/31/2022 urina lysis , dipst ick Unknown Analyte Yellow Not Available [address], [place], [address], 08/31/2022 11:51:03 09/01/19 23 08/31/2022 urina lysis , dipst ick Unknown Analyte Normal = clear Not Available 2099eulogio franklin [address], [place], [address], 08/31/2022 11:51:03 09/01/19 23 08/31/2022 urina lysis , dipst ick Unknown Analyte Clear Not Available [address], [place], [address], 08/31/2022 11:51:03 09/01/19 23 08/31/2022 urina lysis , dipst ick Unknown Analyte Normal = negati ve Not Available eulogio [address], [place], [address], 08/31/2022 11:51:03 09/01/19 23 08/31/2022 urina lysis , dipst ick Unknown Analyte Normal = Negati ve Not Available eulogio farnklin [address], [place], [address], 08/31/2022 11:51:03 09/01/19 23 08/31/2022 urina lysis , dipst ick Unknown Analyte Normal = Negati ve Not Available [facility] rigoberto [address], [place], [address], 08/31/2022 11:51:03 09/01/19 23 08/31/2022 urina lysis , dipst ick Unknown Analyte Negati ve Not Available [facility] rigoberto [address], [place], [address], 08/31/2022 11:51:03 09/01/19 23 08/31/2022 urina lysis , dipst ick Unknown Analyte Negati ve Not Available eulogio franklin [address], [place], [address], 08/31/2022 11:51:03 09/01/19 23 08/31/2022 urina lysis , dipst ick Unknown Analyte Negati ve Not Available [facility] rigoberto [address], [place], [address], 08/31/2022 11:51:03 09/01/19 23 08/31/2022 urina lysis , dipst ick Unknown Analyte Normal = 1.010, 1.015, 1.020 Not Available eulogio franklin [address], [place], [address], 08/31/2022 11:51:03 09/01/19 23 08/31/2022 urina lysis , dipst ick Unknown Analyte 1.020 Not Available ronnie [address], [place], [address], 08/31/2022 11:51:03 09/01/19 23 08/31/2022 urina lysis , dipst ick Unknown Analyte Normal = Negati ve Not Available eulogio franklin [address], [place], [address], 08/31/2022 11:51:03 09/01/19 23 08/31/2022 urina lysis , dipst ick Unknown Analyte Modera te Not Available eulogio franklin [address], [place], [place], [address], 08/31/2022 11:51:03 09/01/19 23 08/31/2022 urina lysis , dipst ick Unknown Analyte Normal = 6.5, 7.0, 7.5, 8.0 Not Available [facility] [address], [place], [place], [address], 08/31/2022 11:51:03 09/01/19 23 08/31/2022 urina lysis , dipst ick Unknown Analyte 6.5 Not Available [address], [place], [address], 08/31/2022 11:51:03 09/01/19 23 08/31/2022 urina lysis , dipst ick Unknown Analyte Normal = Negati ve Not Available eulogio [address], [place], [address], 08/31/2022 11:51:03 09/01/19 23 08/31/2022 urina lysis , dipst ick Unknown Analyte Negati ve Not Available [address], [place], [address], 08/31/2022 11:51:03 09/01/19 23 08/31/2022 urina lysis , dipst ick Unknown Analyte Normal = 0.2, 1.0 Not Available 2099eulogio franklin [address], [place], [address], 08/31/2022 11:51:03 09/01/19 23 08/31/2022 urina lysis , dipst ick Unknown Analyte 0.2 E.U./d L Not Available [address] [place] [address], [place], [address], 08/31/2022 11:51:03 09/01/19 23 08/31/2022 urina lysis , dipst ick Unknown Analyte Normal = Negati ve Not Available [address] [place] [address], [place], [address], 08/31/2022 11:51:03 09/01/19 23 08/31/2022 urina lysis , dipst ick Unknown Analyte Normal = Negati ve Not Available [address], [place], [address], 08/31/2022 11:51:03 09/01/19 23 08/31/2022 urina lysis , dipst ick Unknown Analyte Negati ve Not Available [address] [place] [address], [place], [address], 08/31/2022 11:51:03 09/01/19 23 08/31/2022 urina lysis , dipst ick Unknown Analyte Negati ve Not Available [address] [place] [address], [place], [address], 08/31/2022 11:51:03 Result Notes None recorded. Problems [...] Updated DateTime 3 167.64 cm 34.1 kg/m2 82264.9 9 g 8 19 /min 99 % 99 % 65 /min 98 [degF] 159 mm[Hg] 81 mm[Hg] SOPHIA [facility] 11:52:05 Social History Question Answer Notes LastModified by Organizat ion Details LastModified Time Tobacco Smoking Status Current Every Day Smoker [facility] 08/31/2022 11:49:37 What Is Your Level Of Alcohol Consumption? None [email or web address] Information not available 08/31/2022 How Much Tobacco Do You Smoke? 0.25 PPD [email or web address] Information not available 08/31/2022 Do You Use Any Illicit Or Recreational Drugs? No [email or web address] Information not available 08/31/2022 Have You Recently Traveled Abroad? No [email or web address] Information not available 08/31/2022 Do You Or Have You Ever Used Any Other Forms Of Tobacco Or Nicotine? No [email or web address] Information not available 08/31/2022 Sex: Unknown Functional Status None recorded. Mental Status None recorded. Family History Relationship Description Onset Age of this Age Resolved Age Notes LastModified by Organization Details LastModified Time Father No current problems or disability [email or web address] Not available 08/31 11:49:15 Mother No current problems or disability [email or web address] Not available 08/31 11:49:15 Medical History No medical history recorded. Gynecological History Statement/Question Response Date of LMP Obstetrics History GPAL:G 0 P 0 0 0 0 Past Encounters Encounter ID Performer Location Encounter Start Date Encounter Closed Date Diagnosis/Indication Diagnosis SNOMED-CT Code Diagnosis ICD10 Code Diagnosis Note [id number] [facility] [address] [place] [address] 12/25/2014 09:34:50 12/25/2014 10:29:33 [id number] [facility] [address] [place] [address] 06/19/2015 09:43:53 06/19/2015 10:30:20 [id number] Jennifer Hewitt MD [facility] [address] [place] [address] 08/31/2022 09:45:19 08/31/2022 12:54:43 Low back pain [id number] M54.50 Please follow up with PCP or [...] ID Denise Member ID Guarantor Name 12/25/[address] [place] [address] [id number] Love Douglass [id number] Love Spiveyue 06/19/2015 1 [facility] [id number] Love Spiveyue [id number] Lovemarie Spiveyue 08/31/2022 1 [facility] [id number] Love Spiveyue [id number] Love Spiveyue Notes Date Note Type Note Provider Name and Address Organization Details Recorded Time 3 text/html Back Pain/Injury UCReported bypatient.source of patient informationInformation obtained from patient Location:pain is not radiating Quality:muscle spasms Duration:3 days Aggravating Factors:movement/positioni ng;standing;twisting;walki ng Previous InjuryNo prior injury to affected body part Jennifer Hewitt MD [address] [place], [address], [place] - [facility] 09/05/2022 08:23:21 OBGyn Episode No OBEpisode recorded.
== END 2024-07-30 08:51 | disposition home or self-care (01) ==
LOC: HO.HOS 08:16
PROVIDERS: PCP Physician Assistant; Visit Provider Orthopaedic Surgery
DX: M17.11 Unilateral primary osteoarthritis, right knee (principal)
CPT/HCPCS: 20610; 99213

== ENCOUNTER → 2024-07-30 08:15 | Outpatient (BNVA) | payer OTHER, SELFPAY | PROVIDERS: PCP Physician Assistant; Visit Provider Orthopaedic Surgery | DX: M17.11 Unilateral primary osteoarthritis, right knee (principal); E78.5 Hyperlipidemia, unspecified; I35.9 Nonrheumatic aortic valve disorder, unspecified; I10 Essential (primary) hypertension; E11.9 Type 2 diabetes mellitus without complications; R09.81 Nasal congestion; F17.210 Nicotine dependence, cigarettes, uncomplicated | CPT/HCPCS: 20610; J1010; J2003 ==

== ENCOUNTER 2024-07-30 10:54 | Outpatient (AMB) | payer OTHER, SELFPAY ==
--- NOTE | 2024-07-30 11:02 | A.OFFPC_ITS ---
Vital Signs 07/30/24 11:03 Height 5 ft 5.47 in Weight 210 lb 6 oz BMI 34.5 BP 124/84 Blood Pressure Location Lt brachial Position Sitting Respiration 14 Pulse 84 Pulse Source Pulse Oximeter Temp 98.3 F Temp Source Oral Pulse Oximetry (%) 98 Oxygen Delivery Method Room Air Intake Visit Reasons: bp and med check Intake Note: Blood pressure check. Started blood pressure medication 2 weeks ago. Water Carter Required: No Allergies No Known Allergies [No Known Allergies*] Allergy (Verified 07/30/24 11:02) Medication List - Last Reconciled 07/30/24 by Gabby Mathew PA-C atorvastatin 10 mg PO BEDTIME blood sugar diagnostic (FreeStyle Lite Strips) Use once daily As directed to check blood glucose blood-glucose meter (FreeStyle Lite Meter kit) Use daily As directed to check blood sugars celecoxib (Celebrex) 50 mg PO BID lancets (FreeStyle Lancets) use once daily as directed to check blood glucose lisinopril 10 mg PO DAILY mecobalamin (vitamin B12) (B12 Active) 1,000 mcg PO DAILY Tobacco use date assessed: 06/25/24 Dental Screening Dental Screen Date: 12/20/23 HPI bp and med check HPI Details Pt is a 54 y/o female who presents today for a follow up. She has a history of hyperlipidemia, newly diagnosed diabetes and Lyme disease. HEENT: she has struggled with intermittent nasal congestion and sinus congestion. No current sinus pain but does have some pressure. Using Flonase but is not on any antihistamines. Denies any ear pain or sore throat. No fevers or chills. CV: bp today is 124/84. Recently started on lisinopril. Her last cholesterol did come back elevated and she is motivated to make lifestyle modifications prior to starting medication for cholesterol. Endo: has been a prediabetic and states that for many years she would be monitored since childhood. She has a family history of type 1 and type 2 diabetes. Her most recent A1c was 6.5. She did get my message on this and states that she has been checking her blood sugars and they are around 110. She has also made significant diet changes and has lost 9 lb in the last month. She has also been trying to walk a lot more. She denies any polyuria or polydipsia. She has never been on medication before. Uro: Recent hematuria. She has scans ordered with Urology. She had to miss the CT appointment due to being sick. Tells me today that she is willing to try to quit smoking. She is interested in trying Chantix. 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 She works 2 jobs. She does continue to smoke. No family history of lung cancer. She states that she is up-to-date on mammograms but not with gynecology. She is scheduled. 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 Current occupational exposures/hazards: No Cognitive needs: No Hearing needs: No Vision needs: No Questionnaire Thrive Questionnaire Date Thrive assessed: 07/30/24 I am a: Patient What is your living situation today?: I have a steady place to live Within the past 12 months, did the food you bought not last and you didn't have the money to get more?: Never true Within the past 12 months, did you worry whether your food would run out before you got money to buy more?: Never true Do you have trouble paying for medicines?: No Do you have trouble getting transportation to medical appointments?: No Do you have trouble paying your heating and electricity bill?: No Do you have trouble taking care of your child, family member or friend?: No Do you have trouble with day-to-day activities such as bathing, preparing meals, shopping, managing finances, etc.?: No Are you currently unemployed and looking for a job?: No Are you interested in more education?: No Please select the resources that you would like help with: None Currently or been in a relationship where the following occur: No concerns reported THRIVE Score: 0 AUDIT C Alcohol Use Questionnaire (AUDIT-C) 1. How often do you have a drink containing alcohol?: Never 3. How often do you have six or more drinks on one occasion?: Never Total Score: 0 Physical exam (Primary Care) Vital Signs: Last Vital Signs Temp 98.3 F 07/30/24 11:03 Pulse 84 07/30/24 11:03 Resp 14 07/30/24 11:03 BP 124/84 07/30/24 11:03 Pulse Ox 98 07/30/24 11:03 Oxygen Delivery Method Room Air 07/30/24 11:03 BMI result Body Mass Index 34.5 Tobacco/Smoking Status: Tobacco use Status Tobacco use date assessed 06/25/24 07/30/24 11:07 Patient Tobacco Use Status Current everyday Tobacco 07/30/24 11:07 e-Cigarette/Vaping Use Never Used 07/30/24 11:07 Thrive Assessment: Date of Thrive Assessment Date Thrive assessed 07/30/24 07/30/24 11:07 Currently or been in a relationship where the following occur: No concerns reported Const Orientation/consciousness: patient oriented x3 HENMT Ears: hearing grossly normal bilaterally Neck Thyroid: Thyroid normal Lymphatic: no lymphadenopathy noted Resp Auscultation: clear to auscultation bilaterally Cardio Rate: regular rate Rhythm: regular rhythm Heart sounds: S1 normal heart sound present and S2 normal heart sound present GI Inspection: Yes normal to inspection Palpation (GI): Soft to palpation and Other GI palpation findings present (nontender, no cva tenderness) Auscultation: normoactive bowel sounds Rectal Exam - Female: deferred Skin General skin exam: no rashes or lesions noted Neuro General: patient oriented x3, gait normal and no focal motor deficits Results Reviewed Results Reviewed: Conclusions: - 1. Normal LV ejection fraction of 60 65% with impaired relaxation filling pattern 2. Calcific aortic valve disease noted with mild aortic stenosis and aortic regurgitation 3. Normal RV systolic pressure 4. No gross pericardial effusion Laboratory Tests 07/23/24 06:21 Sodium 139 Potassium 4.3 Chloride 108 Carbon Dioxide 23 Anion Gap 12 BUN 15 Creatinine 0.85 Estimated GFR > 60 Fasting Glucose 141 H Hemoglobin A1c % 6.5 H Calcium 9.4 Coding Level of Care Code Est Pt Level 5 (12988) Complex EM visit Add On G2211 Diagnoses Aortic valve calcification I35.9 HTN (hypertension) I10 Dyslipidemia E78.5 Controlled type 2 diabetes mellitus E11.9 Nicotine dependence F17.200 Sinus congestion R09.81 Assessment & Plan Assessment & Plan (1) Aortic valve calcification: Code(s): I35.9 - Nonrheumatic aortic valve disorder, unspecified Category: Medical Plan: She has been referred to Cardiology. Did discuss the importance of controlling cholesterol, diet and lifestyle. We will start a daily aspirin. Started her on atorvastatin. (2) HTN (hypertension): Code(s): I10 - Essential (primary) hypertension Category: Medical Plan: WNL. Continue current regimen (3) Dyslipidemia: Code(s): E78.5 - Hyperlipidemia, unspecified Category: Medical Plan: On atorvastatin. We will monitor. (4) Controlled type 2 diabetes mellitus: Code(s): E11.9 - Type 2 diabetes mellitus without complications Category: Medical Plan: We discuss the pathophysiology of diabetes, the differences between type 1 and type 2 diabetes and complications associated with diabetes. Reviewed complications including kidney disease, eye disease, increased risk of heart attack, stroke, amputations etc.. We will check additional labs. start metformin. discussed risks and benefits and adverse effects Reviewed testing blood sugars. We spent time reviewing diet, discussing sugars, carbohydrates and how to read labels. I have encouraged increased physical activity. 45 minutes was spent today in [id number] time discussing diabetes alone and then additional time spent reviewing the other ongoing medical problems. (5) Nicotine dependence: Code(s): F17.200 - Nicotine dependence, unspecified, uncomplicated Category: Medical Plan: We will start Chantix. Discussed risks and benefits and adverse effects of this medication. She will let me know if she has any abnormal dreams or mood changes. (6) Sinus congestion: Code(s): R09.81 - Nasal congestion Category: Medical Plan: Start Flonase and Xyzal. Orders: Orders C Peptide Today E11.9 - Type 2 diabetes mellitus without complications, I10 - Essential (primary) hypertension, I35.9 - Nonrheumatic aortic valve disorder, unspecified Islet Cell Antibody Scrn/Titer Today E11.9 - Type 2 diabetes mellitus without complications, I10 - Essential (primary) hypertension, I35.9 - Nonrheumatic aortic valve disorder, unspecified Comprehensive [place]. Panel Fast Today E11.9 - Type 2 diabetes mellitus without complications, I10 - Essential (primary) hypertension, I35.9 - Nonrheumatic aortic valve disorder, unspecified Microalbumin, Random (w Creat) Today E11.9 - Type 2 diabetes mellitus without complications, I10 - Essential (primary) hypertension, I35.9 - Nonrheumatic aortic valve disorder, unspecified Glutamic acid decarboxylase Ab Today E11.9 - Type 2 diabetes mellitus without complications, I10 - Essential (primary) hypertension, I35.9 - Nonrheumatic aortic valve disorder, unspecified RT home sleep study Today R06.81 - Apnea, not elsewhere classified Medications: New metformin ER 500 mg PO DAILY 90 tabs 0RF varenicline tartrate (Chantix Starting Month Box) PO PER PKG DIR 53 ea 0RF levocetirizine (Xyzal) 5 mg PO DAILY 90 tabs 0RF
[2024-07-30 11:03] VITALS: BP 124/84; PULSE 84; RESP 14; TEMP 36.8; O2SAT 98; BMI 34.5
== END 2024-07-30 11:45 | disposition home or self-care (01) ==
LOC: HO.HMCFM 10:55
PROVIDERS: Visit Provider Physician Assistant
DX: I35.9 Nonrheumatic aortic valve disorder, unspecified (principal); I10 Essential (primary) hypertension; E78.5 Hyperlipidemia, unspecified; E11.9 Type 2 diabetes mellitus without complications; F17.200 Nicotine dependence, unspecified, uncomplicated; R09.81 Nasal congestion

== ENCOUNTER 2024-08-14 09:22 | Outpatient (REF) | payer OTHER, SELFPAY ==
[2024-08-20 11:59] LABS: HPV Genotype 16 Negative (Negative); HPV Genotype 18 Negative (Negative); HPV High Risk Negative (Negative)
== END 2024-08-14 09:23 | disposition home or self-care (01) ==
LOC: HO.LNP 09:22
PROVIDERS: PCP Physician Assistant; Visit Provider Advanced Practice Midwife
DX: Z01.419 Encounter for gynecological examination (general) (routine) without abnormal findings (principal)
CPT/HCPCS: 87626; 88175

== ENCOUNTER 2024-08-14 09:22 | Outpatient (AMB) | payer OTHER, SELFPAY ==
[2024-08-14 09:26] VITALS: BP 124/74; BMI 33.5
--- NOTE | 2024-08-14 09:26 | MHC.OFFVIS ---
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 She is doing well with no change analyst concerns. Menopause age 40. Currently not sexually active. Denies any vaginal dryness or irritation. STI testing offered; she declines. Ateempting to eat a healthy diet, stays active with exercise-works 2 jobs. Last pap smear; years ago, reports were normal. Last mammogram; at [facility]-no records available. Colonoscopy consultation appointments is booked. Denies any family history of breast, ovarian or colon cancer. Smoker, plan to quit, has Chantix on hand. [facility] Medical History (Updated 08/14/24 @ 09:48 by Leyda Ibrahim CNM) Lyme disease HTN (hypertension) Ganglion cyst Pilonidal cyst Endometrial polyp Carpal tunnel syndrome Surgical History (Updated 08/14/24 @ 09:32 by RESHMA Rowan) History of carpal tunnel surgery Hx of dilation and curettage H/O section Family History (Updated 08/14/24 @ 09:33 by RESHMA Rowan) Mother Hypertension High cholesterol Father Hypertension Social History Housing: House Alcohol intake: never Patient Tobacco Use Status: Current everyday Tobacco user Cigarettes Per Day: 5 Years Smoked: 25 e-Cigarette/Vaping Use: Never Used service: No Current occupational status: employed 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 Current occupational exposures/hazards: No Cognitive needs: No Hearing needs: No Vision needs: No Female Reproductive History Menstrual Total pregnancies: 2 Full term: 2 Number of Living Children: 2 Review of Systems Const All systems reviewed & are unremarkable except as noted in HPI and below Reports as per HPI Eyes Reports no additional complaints ENT Reports no additional complaints Card Reports no additional complaints Resp Reports no additional complaints GI Reports as per HPI and Reports no additional complaints Reports as per HPI Musc Reports no additional complaints Skin/Breast Reports as per HPI Neuro Reports no additional complaints Psych Reports no additional complaints Endo Reports no additional complaints Rodríguez/Lymph Reports no additional complaints Aller/Immun Reports no additional complaints Physical Exam Vital Signs: Last Vital Signs BP 124/74 08/14/24 09:26 BMI result Body Mass Index 33.5 Const General: cooperative, healthy appearing, no acute distress, well developed and alert Orientation/consciousness: patient oriented x3 HEENT Head: Yes normal to inspection Eyes General: appearance normal, both eyes and all related structures Neck Neck: Yes normal visual inspection Thyroid: Thyroid normal Chest Chest palpation & inspection: normal inspection of the chest and other (no puckering, dimpling, peau de orange, retraction, discharge, masses) Breast/axilla inspection: normal inspection of the breasts Breast/axilla palpation: normal palpation of the breasts Resp Effort & Inspection: normal respiratory effort GI Inspection: Yes normal to inspection Palpation (GI): Soft to palpation Rectal Exam - Female: deferred General: Yes bladder normal to palpation External Female Exam: normal external appearance and normal appearance of the urethra Speculum Exam - Vagina: normal appearance of the vagina, normal palpation, normal vaginal discharge and vagina atrophic Speculum Exam - Cervix: normal appearance of the cervix, normal palpation and Other cervical findings present (Atrophic changes, slightly with Pap) Bimanual exam- vagina & uterus: normal bimanual exam, normal palpation, uterine size normal, bladder normal to palpation, normal palpation and non-tender Bimanual Exam- Adnexa, other: no masses Skin General skin exam: no rashes or lesions noted Rashes: no rashes Neuro General: patient oriented x3 Cognition (Neuro): normal cognition Extrem General: Yes normal to inspection Psych Attitude: cooperative Thought process: Normal thought process present Assessment & Plan Assessment & Plan (1) Encounter for well woman exam with routine gynecological exam: Code(s): Z01.419 - Encounter for gynecological examination (general) (routine) without abnormal findings Category: Medical Plan Discussed: Current recommendations for pap smears per ASCCP guidelines. Breast awareness, periodic self breast exams and yearly mammogram. Mammogram order. Maintain a healthy lifestyle, well balanced diet including Calcium 1,200 mg and Vitamin D 600 IU daily, and routine exercise. Use of condoms for STI prevention if indicated. Contact the office with any postmenopausal bleeding. Patient verbalizes understanding and agrees to the plan of care. She was given opportunity to ask questions and all questions were answered to the best of my ability. RTO in 1 year for annual change analyst exam. This note is constructed using voice recognition software. While every effort has been made to ensure accuracy, traffic enumerator errors may have been included. Orders: Orders Pap Smear Today Z01.419 - Encounter for gynecological examination (general) (routine) without abnormal findings MM tomosynthesis screening BI Today Z12.31 - Encounter for screening mammogram for malignant neoplasm of breast HPV High risk Today Z01.419 - Encounter for gynecological examination (general) (routine) without abnormal findings Coding Level of Care Code New Pt Prev Care 40-64y(82119) Diagnoses Encounter for well woman exam with routine gynecological exam Z01.419
--- OUTSIDE RECORDS SUMMARY | 2024-08-14 09:59 | XMS_ITS | Data Portability ---
Author Organization DANYELLE Pardo [facility], [address] Address [address] [place] [address] Assessment No assessment recorded. Plan of Treatment Reminders Order Date Submit Date Provider Last Modified By Organization Details Last Modified Time Details Appointments None recorded. Lab urinalysis, dipstick 2022 023 [place] [address] [facility], [address] [place] [address], [address], 12:49:25 test, urine 2022 023 [place] [address] [facility], [address] [place] [address], [address], 12:49:25 Referral None recorded. Procedures None recorded. Surgeries None recorded. Imaging None recorded. Medication Orders cyclobenzap rine 10 mg tablet 2022 023 [id number], [address] [place], [address], 3 12:49:27 naproxen 500 mg tablet 2022 023 [id number], [address] [place], [address], 3 12:49:27 Patient TargetsNo targets recorded. Patient Instructions Encounter Date Encounter Id Patient Instructions Last Modified By Organization Details Last Modified Time 08/31/2022 [id number] back pain: care instructions [place] [id number] Not available 08/31/2022 12:49:25 Reason for Referral None Reported. Results Created Date Observation Date Name Description Value Unit Range Abnormal Flag Note LastModifiedBy Organization Detail LastModifiedTime 09/01/19 23 08/31/2022 pregn catarino test, urine Unknown Analyte Normal = Negati ve Not Available 2099eulogio franklin [address], [place], [address], 08/31/2022 11:51:08 09/01/19 23 08/31/2022 pregn catarino test, urine Unknown Analyte negati ve Not Available 2099eulogio franklin [address], [place], [address], 08/31/2022 11:51:08 09/01/19 23 08/31/2022 urina lysis , dipst ick Unknown Analyte Normal = light yellow Not Available 2099eulogio franklin [address], [place], [address], 08/31/2022 11:51:03 09/01/19 23 08/31/2022 urina lysis , dipst ick Unknown Analyte Yellow Not Available [address], [place], [address], 08/31/2022 11:51:03 09/01/19 23 08/31/2022 urina lysis , dipst ick Unknown Analyte Normal = clear Not Available 2099eulogio franklin [address], [place], [address], 08/31/2022 11:51:03 09/01/19 23 08/31/2022 urina lysis , dipst ick Unknown Analyte Clear Not Available [address], [place], [address], 08/31/2022 11:51:03 09/01/19 23 08/31/2022 urina lysis , dipst ick Unknown Analyte Normal = negati ve Not Available eulogio [address], [place], [address], 08/31/2022 11:51:03 09/01/19 23 08/31/2022 urina lysis , dipst ick Unknown Analyte Normal = Negati ve Not Available eulogio franklin [address], [place], [address], 08/31/2022 11:51:03 09/01/19 23 08/31/2022 urina lysis , dipst ick Unknown Analyte Normal = Negati ve Not Available [facility] rigoberto [address], [place], [address], 08/31/2022 11:51:03 09/01/19 23 08/31/2022 urina lysis , dipst ick Unknown Analyte Negati ve Not Available [facility] rigoberto [address], [place], [address], 08/31/2022 11:51:03 09/01/19 23 08/31/2022 urina lysis , dipst ick Unknown Analyte Negati ve Not Available eulogio franklin [address], [place], [address], 08/31/2022 11:51:03 09/01/19 23 08/31/2022 urina lysis , dipst ick Unknown Analyte Negati ve Not Available [facility] rigoberto [address], [place], [address], 08/31/2022 11:51:03 09/01/19 23 08/31/2022 urina lysis , dipst ick Unknown Analyte Normal = 1.010, 1.015, 1.020 Not Available eulogio franklin [address], [place], [address], 08/31/2022 11:51:03 09/01/19 23 08/31/2022 urina lysis , dipst ick Unknown Analyte 1.020 Not Available ronnie [address], [place], [address], 08/31/2022 11:51:03 09/01/19 23 08/31/2022 urina lysis , dipst ick Unknown Analyte Normal = Negati ve Not Available eulogio franklin [address], [place], [address], 08/31/2022 11:51:03 09/01/19 23 08/31/2022 urina lysis , dipst ick Unknown Analyte Modera te Not Available eulogio franklin [address], [place], [place], [address], 08/31/2022 11:51:03 09/01/19 23 08/31/2022 urina lysis , dipst ick Unknown Analyte Normal = 6.5, 7.0, 7.5, 8.0 Not Available [facility] [address], [place], [place], [address], 08/31/2022 11:51:03 09/01/19 23 08/31/2022 urina lysis , dipst ick Unknown Analyte 6.5 Not Available [address], [place], [address], 08/31/2022 11:51:03 09/01/19 23 08/31/2022 urina lysis , dipst ick Unknown Analyte Normal = Negati ve Not Available eulogio [address], [place], [address], 08/31/2022 11:51:03 09/01/19 23 08/31/2022 urina lysis , dipst ick Unknown Analyte Negati ve Not Available [address], [place], [address], 08/31/2022 11:51:03 09/01/19 23 08/31/2022 urina lysis , dipst ick Unknown Analyte Normal = 0.2, 1.0 Not Available 2099eulogio franklin [address], [place], [address], 08/31/2022 11:51:03 09/01/19 23 08/31/2022 urina lysis , dipst ick Unknown Analyte 0.2 E.U./d L Not Available [address] [place] [address], [place], [address], 08/31/2022 11:51:03 09/01/19 23 08/31/2022 urina lysis , dipst ick Unknown Analyte Normal = Negati ve Not Available [address] [place] [address], [place], [address], 08/31/2022 11:51:03 09/01/19 23 08/31/2022 urina lysis , dipst ick Unknown Analyte Normal = Negati ve Not Available [address], [place], [address], 08/31/2022 11:51:03 09/01/19 23 08/31/2022 urina lysis , dipst ick Unknown Analyte Negati ve Not Available [address] [place] [address], [place], [address], 08/31/2022 11:51:03 09/01/19 23 08/31/2022 urina lysis , dipst ick Unknown Analyte Negati ve Not Available [address] [place] [address], [place], [address], 08/31/2022 11:51:03 Result Notes None recorded. Problems [...] Updated DateTime 3 167.64 cm 34.1 kg/m2 33670.9 9 g 8 19 /min 99 % 99 % 65 /min 98 [degF] 159 mm[Hg] 81 mm[Hg] SOPHIA [facility] 11:52:05 Social History Question Answer Notes LastModified by Organizat ion Details LastModified Time Tobacco Smoking Status Current Every Day Smoker [facility] 08/31/2022 11:49:37 What Is Your Level Of Alcohol Consumption? None [email or web address] Information not available 08/31/2022 How Much Tobacco Do You Smoke? 0.25 PPD [email or web address] Information not available 08/31/2022 Do You Use Any Illicit Or Recreational Drugs? No [email or web address] Information not available 08/31/2022 Have You Recently Traveled Abroad? No Information not available 08/31/2022 Do You Or Have You Ever Used Any Other Forms Of Tobacco Or Nicotine? No [email or web address] Information not available 08/31/2022 Sex: Unknown Functional Status None recorded. Mental Status None recorded. Family History Relationship Description Onset Age of this Age Resolved Age Notes LastModified by Organization Details LastModified Time Father No current problems or disability [email or web address] Not available 08/31 11:49:15 Mother No current problems or disability [email or web address] Not available 08/31 11:49:15 Medical History No medical history recorded. Gynecological History Statement/Question Response Date of LMP Obstetrics History GPAL:G 0 P 0 0 0 0 Past Encounters Encounter ID Performer Location Encounter Start Date Encounter Closed Date Diagnosis/Indication Diagnosis SNOMED-CT Code Diagnosis ICD10 Code Diagnosis Note [id number] [facility] [address] [place] [address] 12/25/2014 09:34:50 12/25/2014 10:29:33 [id number] [facility] [place] [address] 06/19/2015 09:43:53 06/19/2015 10:30:20 [id number] Jennifer Hewitt MD [address] [facility] [place] [address] 08/31/2022 09:45:19 08/31/2022 12:54:43 Low back pain [id number] M54.50 Please follow up with PCP or [...] Recorded Advance Directives Directive None Recorded Payers Insurance Date Sequence Insurance Name Policy Number Policy Denise Covered Member ID Denise Member ID Guarantor Name 08/31/2022 1 [facility] [id number] Love Douglass [id number] Love Douglass Notes Date Note Type Note Provider Name and Address Organization Details Recorded Time 3 text/html Back Pain/Injury UCReported bypatient.source of patient informationInformation obtained from patient Location:pain is not radiating Quality:muscle spasms Duration:3 days Aggravating Factors:movement/positioni ng;standing;twisting;walki ng Previous InjuryNo prior injury to affected body part Jennifer Hewitt MD [address] [place], [address], [place] - [facility] 09/05/2022 08:23:21 OBGyn Episode No OBEpisode recorded.
== END 2024-08-14 10:06 | disposition home or self-care (01) ==
LOC: HO.HWS 09:23
PROVIDERS: PCP Physician Assistant; Visit Provider Advanced Practice Midwife
DX: Z01.419 Encounter for gynecological examination (general) (routine) without abnormal findings (principal)
CPT/HCPCS: 99386; 99459

== ENCOUNTER 2024-08-25 06:00 | Outpatient (REF) | payer OTHER, SELFPAY ==
--- OUTSIDE RECORDS SUMMARY | 2024-08-25 06:03 | XMS_ITS | Data Portability ---
Author Organization DANYELLE Pardo [facility], [address] Address [address] [place] [address] Assessment No assessment recorded. Plan of Treatment Reminders Order Date Submit Date Provider Last Modified By Organization Details Last Modified Time Details Appointments None recorded. Lab urinalysis, dipstick 2022 023 [place] [address] [facility], [address] [place] [address], [address], 12:49:25 test, urine 2022 023 [place] [address] [facility], [address] [place] [address], [address], 12:49:25 Referral None recorded. Procedures None recorded. Surgeries None recorded. Imaging None recorded. Medication Orders cyclobenzap rine 10 mg tablet 2022 023 [id number], [address] [place], [address], 3 12:49:27 naproxen 500 mg tablet 2022 023 [id number] [address] [place], [address], 3 12:49:27 Patient TargetsNo targets recorded. Patient Instructions Encounter Date Encounter Id Patient Instructions Last Modified By Organization Details Last Modified Time 08/31/2022 [id number] back pain: care instructions [place] [id number] Not available 08/31/2022 12:49:25 Reason for Referral None Reported. Results Created Date Observation Date Name Description Value Unit Range Abnormal Flag Note LastModifiedBy Organization Detail LastModifiedTime 09/01/19 23 08/31/2022 pregn catarino test, urine Unknown Analyte Normal = Negati ve Not Available 2099eulogio franklin [address], [place], [address], 08/31/2022 11:51:08 09/01/19 23 08/31/2022 pregn catarino test, urine Unknown Analyte negati ve Not Available 2099eulogio franklin [address], [place], [address], 08/31/2022 11:51:08 09/01/19 23 08/31/2022 urina lysis , dipst ick Unknown Analyte Normal = light yellow Not Available 2099eulogio franklin [address], [place], [address], 08/31/2022 11:51:03 09/01/19 23 08/31/2022 urina lysis , dipst ick Unknown Analyte Yellow Not Available [address], [place], [address], 08/31/2022 11:51:03 09/01/19 23 08/31/2022 urina lysis , dipst ick Unknown Analyte Normal = clear Not Available 2099eulogio franklin [address], [place], [address], 08/31/2022 11:51:03 09/01/19 23 08/31/2022 urina lysis , dipst ick Unknown Analyte Clear Not Available [address], [place], [address], 08/31/2022 11:51:03 09/01/19 23 08/31/2022 urina lysis , dipst ick Unknown Analyte Normal = negati ve Not Available eulogio [address], [place], [address], 08/31/2022 11:51:03 09/01/19 23 08/31/2022 urina lysis , dipst ick Unknown Analyte Normal = Negati ve Not Available eulogio franklin [address], [place], [address], 08/31/2022 11:51:03 09/01/19 23 08/31/2022 urina lysis , dipst ick Unknown Analyte Normal = Negati ve Not Available [facility] rigoberto [address], [place], [address], 08/31/2022 11:51:03 09/01/19 23 08/31/2022 urina lysis , dipst ick Unknown Analyte Negati ve Not Available [facility] rigoberto [address], [place], [address], 08/31/2022 11:51:03 09/01/19 23 08/31/2022 urina lysis , dipst ick Unknown Analyte Negati ve Not Available eulogio franklin [address], [place], [address], 08/31/2022 11:51:03 09/01/19 23 08/31/2022 urina lysis , dipst ick Unknown Analyte Negati ve Not Available [facility] rigoberto [address], [place], [address], 08/31/2022 11:51:03 09/01/19 23 08/31/2022 urina lysis , dipst ick Unknown Analyte Normal = 1.010, 1.015, 1.020 Not Available eulogio franklin [address], [place], [address], 08/31/2022 11:51:03 09/01/19 23 08/31/2022 urina lysis , dipst ick Unknown Analyte 1.020 Not Available ronnie [address], [place], [address], 08/31/2022 11:51:03 09/01/19 23 08/31/2022 urina lysis , dipst ick Unknown Analyte Normal = Negati ve Not Available eulogio franklin [address], [place], [address], 08/31/2022 11:51:03 09/01/19 23 08/31/2022 urina lysis , dipst ick Unknown Analyte Modera te Not Available eulogio franklin [address], [place], [place], [address], 08/31/2022 11:51:03 09/01/19 23 08/31/2022 urina lysis , dipst ick Unknown Analyte Normal = 6.5, 7.0, 7.5, 8.0 Not Available [facility] [address], [place], [place], [address], 08/31/2022 11:51:03 09/01/19 23 08/31/2022 urina lysis , dipst ick Unknown Analyte 6.5 Not Available [address], [place], [address], 08/31/2022 11:51:03 09/01/19 23 08/31/2022 urina lysis , dipst ick Unknown Analyte Normal = Negati ve Not Available eulogio [address], [place], [address], 08/31/2022 11:51:03 09/01/19 23 08/31/2022 urina lysis , dipst ick Unknown Analyte Negati ve Not Available [address], [place], [address], 08/31/2022 11:51:03 09/01/19 23 08/31/2022 urina lysis , dipst ick Unknown Analyte Normal = 0.2, 1.0 Not Available 2099eulogio franklin [address], [place], [address], 08/31/2022 11:51:03 09/01/19 23 08/31/2022 urina lysis , dipst ick Unknown Analyte 0.2 E.U./d L Not Available [address] [place] [address], [place], [address], 08/31/2022 11:51:03 09/01/19 23 08/31/2022 urina lysis , dipst ick Unknown Analyte Normal = Negati ve Not Available [address] [place] [address], [place], [address], 08/31/2022 11:51:03 09/01/19 23 08/31/2022 urina lysis , dipst ick Unknown Analyte Normal = Negati ve Not Available [address], [place], [address], 08/31/2022 11:51:03 09/01/19 23 08/31/2022 urina lysis , dipst ick Unknown Analyte Negati ve Not Available [address] [place] [address], [place], [address], 08/31/2022 11:51:03 09/01/19 23 08/31/2022 urina lysis , dipst ick Unknown Analyte Negati ve Not Available [address] [place] [address], [place], [address], 08/31/2022 11:51:03 Result Notes None recorded. Problems No Known Problems Procedures Surgical History Date Name Laterality Status Provider Name and Address Organization Details Recorded Time section completed [facility] 08/31/2022 11:49:52 excision of ganglion cyst completed [...] Updated DateTime 3 167.64 cm 34.1 kg/m2 08509.9 9 g 19 /min 99 % 99 % 65 /min 98 [degF] 159 mm[Hg] 81 mm[Hg] [facility]HIA [facility] 11:52:05 Social History Question Answer Notes LastModified by Ooolala ion Details LastModified Time Tobacco Smoking Status Current Every Day Smoker [facility] 08/31/2022 11:49:37 How Much Tobacco Do You Smoke? 0.25 PPD [email or web address] Information not available 08/31/2022 Have You Recently Traveled Abroad? No [email or web address] Information not available 08/31/2022 Sex: Unknown Functional Status Question Answer Note LastModified by [employer] ion Details LastModified Time Do you use any illicit or recreational drugs? No [email or web address] Information not available 08/31/2022 Do you or have you ever used any other forms of tobacco or nicotine? No [email or web address] Information not available 08/31/2022 What is your level of alcohol consumption? None [email or web address] Information not available 08/31/2022 Mental Status None recorded. Family History Relationship Description Onset Age of this Age Resolved Age Notes LastModified by Organization Details LastModified Time Father No current problems or disability [email or web address] Not available 08/31 11:49:15 Mother No current problems or disability [email or web address] Not available 08/31 11:49:15 Medical History No medical history recorded. Gynecological History Statement/Question Response Date of LMP Obstetrics History GPAL:G 0 P 0 0 0 0 Past Encounters Encounter ID Performer Location Encounter Start Date Encounter Closed Date Diagnosis/Indication Diagnosis SNOMED-CT Code Diagnosis ICD10 Code Diagnosis Note [id number] [facility] [address] [place] [address] 12/25/2014 09:34:50 12/25/2014 10:29:33 [id number] [facility] [address] [place] [address] 06/19/2015 09:43:53 06/19/2015 10:30:20 [id number] Jennifer Hewitt MD [address] [address] [place] [address] 08/31/2022 09:45:19 08/31/2022 12:54:43 Low back pain [id number] M54.50 Please follow up with PCP or [...] ID Denise Member ID Guarantor Name 08/31/[address] [place] [address] [id number] Love Douglass [id number] Love Douglass Notes Date Note Type Note Provider Name and Address Organization Details Recorded Time 3 text/html Back Pain/Injury UCReported bypatient.source of patient informationInformation obtained from patient Location:pain is not radiating Quality:muscle spasms Duration:3 days Aggravating Factors:movement/positioni ng;standing;twisting;walki ng Previous InjuryNo prior injury to affected body part Jennifer Hewitt MD [address] [place], [address], [place] - [facility] 09/05/2022 08:23:21 OBGyn Episode No OBEpisode recorded.
[2024-08-25 08:01] LABS: Alanine Aminotransferase 19 U/L (0-31); Albumin Level 4.1 g/dL (3.5-5.0); Alkaline Phosphatase 56 U/L (39-117); Anion Gap 12 (12-20); Aspartate Amino Transferase 18 U/L (5-31); Bilirubin Total 0.6 mg/dL (0.0-1.0); Blood Urea Nitrogen 14 mg/dL (9-16); Calcium 9.3 mg/dL (8.4-10.2); Carbon Dioxide 21 mmol/L (22-29); Chloride 110 mmol/L (96-108); Estimated Glomerular Filt Rate > 60; Glucose Fasting 115 mg/dL (60-99); Potassium 3.8 mmol/L (3.3-5.1); Sodium 139 mmol/L (135-145); Total Protein 6.5 g/dL (6.5-8.0)
[2024-08-25 08:09] LABS: Appearance Urine Clear; Color Urine Dark Yellow; Glucose Urine UA Negative (Negative); Leukocyte Esterase Urine Negative (Negative); Nitrite Urine Negative (Negative); PH 5.5 (5.0-9.0); Specific Gravity - Urine >= 1.030 (1.005-1.025); UMIC TRIGGER UACC YES; Urine Blood Moderate (2+) (Negative); Urine Ketones Trace mg/dL (Negative); Urine Protein Trace mg/dL (Neg-Trace)
[2024-08-25 08:21] LABS: Bacteria Urine None Seen (None Seen); Calcium Oxalate Crystals Urine Present; Hyaline Casts Urine 0-2 /LPF (0-2); WBC Urine 0-5 /HPF (0-5)
[2024-08-25 09:00] LABS: Creatinine Urine 213.59 mg/dL; Microalbum/Creatinine Ratio Ur 11.7 ug/mg cr (<30)
[2024-08-26 09:08] LABS: C Peptide 4.83 ng/mL (0.80-3.85)
[2024-08-30 19:43] LABS: Glutamic acid decarboxylase Ab <5 IU/mL (<5)
[2024-09-03 00:18] LABS: Islet Cell Antibody Screen NEGATIVE (NEGATIVE)
== END 2024-08-25 06:01 | disposition home or self-care (01) ==
LOC: HO.LAB 06:00
PROVIDERS: Urology; PCP Physician Assistant; Visit Provider Physician Assistant
DX: E11.9 Type 2 diabetes mellitus without complications (principal); I10 Essential (primary) hypertension; I35.9 Nonrheumatic aortic valve disorder, unspecified; R31.9 Hematuria, unspecified; R53.83 Other fatigue; A69.20 Lyme disease, unspecified
CPT/HCPCS: 36415; 80053; 81001; 81003; 82043; 82570; 84681; 86341

== ENCOUNTER 2024-09-25 09:10 | Outpatient (AMB) | payer OTHER, SELFPAY ==
--- NOTE | 2024-09-25 09:30 | MHC.PC.OV ---
Vital Signs 09/25/24 09:35 Height 5 ft 5.47 in Weight 200 lb 8 oz BMI 32.9 BP 114/80 Blood Pressure Location Lt brachial Position Sitting Respiration 14 Pulse 64 Pulse Source Pulse Oximeter Temp 98.3 F Temp Source Oral Pulse Oximetry (%) 95 Oxygen Delivery Method Room Air Intake Visit Reasons: dm Intake Note: Diabetes follow up Brewery Pumper Required: No Allergies No Known Allergies (No Known Allergies*) Allergy (Verified 09/25/24 09:31) Medication List - Last Reconciled 09/25/24 by Gabby Mathew PA-C atorvastatin 10 mg PO BEDTIME blood sugar diagnostic (FreeStyle Lite Strips) Use once daily As directed to check blood glucose blood-glucose meter (FreeStyle Lite Meter kit) Use daily As directed to check blood sugars celecoxib (Celebrex) 50 mg PO BID lancets (FreeStyle Lancets) use once daily as directed to check blood glucose levocetirizine (Xyzal) 5 mg PO DAILY lisinopril 10 mg PO DAILY mecobalamin (vitamin B12) (B12 Active) 1,000 mcg PO DAILY metformin ER 500 mg PO DAILY varenicline tartrate (Chantix) 1 mg PO BID Tobacco use date assessed: 09/25/24 Dental Screening Dental Screen Date: 09/25/24 Did you have a dental visit in the last 12 months?: No Did you have a dental problem in the last 6 months where you did not have access to dental care?: No Was dental information given to patient?: Patient declined (doesn't have denture insurance at this time) HPI dm HPI Details Pt is a 54 y/o female who presents today for a follow up. She has a history of hyperlipidemia, newly diagnosed diabetes and Lyme disease. CV: bp today is 114/80. Recently started on lisinopril. Her last cholesterol did come back elevated despite diet changes and she was started on atorvastatin 10 mg daily. Tolerating this well. Endo: Her most recent A1c was 6.5. She states that she has tried taking 2 of the metformin and it makes her feel sick. Taking 1 of them even causes little bit of stomach upset. She would like another medication or medication to help her curb her appetite a little further.. She has lost 20 lbs in the last few months. Uro: Recent hematuria. She has scans ordered with Urology. Neuro: states that for the last year she has had an increase in headaches. She states that many years ago she had migraines with auras but over the last year she has noticed some vision changes when she is about to get a headache and it feels a little different. It has gradually increased over the past year. She is overdue for an eye exam. States that she could do better with hydration. The headaches are usually unilateral. Sometimes she has just the floaters in her vision and some blurry vision that resolves without any headache but usually she then has a severe headache. It is happening about 3 to 4 times a week. She is booked for a sleep study in October. Tells me today that she is willing to try to quit smoking. She has not started the Chantix yet. 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 She works 2 jobs. She does continue to smoke. No family history of lung cancer. She states that she is up-to-date on mammograms but not with gynecology. She is scheduled. dexa- osteopenia 2023 Overdue for colonoscopy- was referred [facility] Medical History (Updated 09/25/24 @ 09:59 by Gabby Mathew PA-C) Lyme disease HTN (hypertension) Ganglion cyst Pilonidal cyst Endometrial polyp Carpal tunnel syndrome Surgical History (Updated 08/14/24 @ 09:32 by RESHMA Rowan) History of carpal tunnel surgery Hx of dilation and curettage H/O section Family History (Updated 08/14/24 @ 09:33 by RESHMA Rowan) Mother Hypertension High cholesterol Father Hypertension Social History Housing: House Alcohol intake: never Patient Tobacco Use Status: Current everyday Tobacco user Cigarettes Per Day: 5 Years Smoked: 25 e-Cigarette/Vaping Use: Never Used service: No Current occupational status: employed 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 Current occupational exposures/hazards: No Cognitive needs: No Hearing needs: No Vision needs: No Questionnaire Thrive Questionnaire Date Thrive assessed: 06/22/24 I am a: Patient What is your living situation today?: I have a steady place to live Within the past 12 months, did the food you bought not last and you didn't have the money to get more?: Never true Within the past 12 months, did you worry whether your food would run out before you got money to buy more?: Never true Do you have trouble paying for medicines?: No Do you have trouble getting transportation to medical appointments?: No Do you have trouble paying your heating and electricity bill?: No Do you have trouble taking care of your child, family member or friend?: No Do you have trouble with day-to-day activities such as bathing, preparing meals, shopping, managing finances, etc.?: No Are you currently unemployed and looking for a job?: No Are you interested in more education?: No Please select the resources that you would like help with: None Currently or been in a relationship where the following occur: No concerns reported THRIVE Score: 0 Physical exam (Primary Care) Vital Signs: Last Vital Signs Temp 98.3 F 09/25/24 09:35 Pulse 64 09/25/24 09:35 Resp 14 09/25/24 09:35 BP 114/80 09/25/24 09:35 Pulse Ox 95 09/25/24 09:35 Oxygen Delivery Method Room Air 09/25/24 09:35 BMI result Body Mass Index 32.9 Tobacco/Smoking Status: Tobacco use Status Tobacco use date assessed 09/25/24 09/25/24 09:33 Patient Tobacco Use Status Current everyday Tobacco 09/25/24 09:33 e-Cigarette/Vaping Use Never Used 09/25/24 09:33 Thrive Assessment: Date of Thrive Assessment Date Thrive assessed 06/22/24 09/25/24 09:33 Currently or been in a relationship where the following occur: No concerns reported Const Orientation/consciousness: patient oriented x3 HENMT Ears: hearing grossly normal bilaterally Neck Thyroid: Thyroid normal Lymphatic: no lymphadenopathy noted Resp Auscultation: clear to auscultation bilaterally Cardio Rate: regular rate Rhythm: regular rhythm Heart sounds: S1 normal heart sound present and S2 normal heart sound present GI Inspection: Yes normal to inspection Palpation (GI): Soft to palpation and Other GI palpation findings present (nontender, no cva tenderness) Auscultation: normoactive bowel sounds Rectal Exam - Female: deferred Skin General skin exam: no rashes or lesions noted Neuro General: patient oriented x3, gait normal and no focal motor deficits Coding Level of Care Code Est Pt Level 4 (86993) Complex EM visit Add On G2211 Diagnoses New persistent daily headache G44.52 Vision changes H53.9 Dyslipidemia E78.5 HTN (hypertension) I10 Controlled type 2 diabetes mellitus E11.9 Assessment & Plan Assessment & Plan (1) New persistent daily headache: Code(s): G44.52 - New daily persistent headache (NDPH) Category: Medical Plan: MRI ordered Sleep study scheduled Ophthalmology consult placed (2) Vision changes: Code(s): H53.9 - Unspecified visual disturbance Category: Medical Plan: As above (3) Dyslipidemia: Code(s): E78.5 - Hyperlipidemia, unspecified Category: Medical Plan: We will check lipids and LFTs. Tolerating atorvastatin (4) HTN (hypertension): Code(s): I10 - Essential (primary) hypertension Category: Medical Plan: WNL. Continue current regimen (5) Controlled type 2 diabetes mellitus: Code(s): E11.9 - Type 2 diabetes mellitus without complications Category: Medical Plan: We will start Trulicity. Continue metformin as tolerated. We will monitor labs. Patient understands and agrees with this plan. Orders: Orders Comprehensive Thompson. Panel Fast Today E78.5 - Hyperlipidemia, unspecified, G44.52 - New daily persistent headache (NDPH), H53.9 - Unspecified visual disturbance, I10 - Essential (primary) hypertension Complete Blood Count Auto Diff Today E78.5 - Hyperlipidemia, unspecified, G44.52 - New daily persistent headache (NDPH), H53.9 - Unspecified visual disturbance, I10 - Essential (primary) hypertension Lipid Panel Today E78.5 - Hyperlipidemia, unspecified, G44.52 - New daily persistent headache (NDPH), H53.9 - Unspecified visual disturbance, I10 - Essential (primary) hypertension TSH reflex Free T4 Today E78.5 - Hyperlipidemia, unspecified, G44.52 - New daily persistent headache (NDPH), H53.9 - Unspecified visual disturbance, I10 - Essential (primary) hypertension MR head/brain wo con Today G44.52 - New daily persistent headache (NDPH) Hemoglobin A1c Today E78.5 - Hyperlipidemia, unspecified, G44.52 - New daily persistent headache (NDPH), H53.9 - Unspecified visual disturbance, I10 - Essential (primary) hypertension, R73.01 - Impaired fasting glucose Microalbumin, Random (w Creat) Today E78.5 - Hyperlipidemia, unspecified, G44.52 - New daily persistent headache (NDPH), H53.9 - Unspecified visual disturbance, I10 - Essential (primary) hypertension Vitamin B12 and Folate Today E78.5 - Hyperlipidemia, unspecified, G44.52 - New daily persistent headache (NDPH), H53.9 - Unspecified visual disturbance, I10 - Essential (primary) hypertension Referrals Ophthalmology Referral G44.52 - New daily persistent headache (NDPH), H53.9 - Unspecified visual disturbance Medications: New dulaglutide (Trulicity) 0.75 mg (0.5 mL) subcut QWEEK 2 mL 3RF Refilled blood sugar diagnostic (FreeStyle Lite Strips) Use once daily As directed to check blood glucose 100 ea 3RF E11.9 - Type 2 diabetes mellitus without complications
[2024-09-25 09:35] VITALS: BP 114/80; PULSE 64; RESP 14; TEMP 36.8; O2SAT 95; BMI 32.9
--- OUTSIDE RECORDS SUMMARY | 2024-09-25 09:46 | XMS_ITS | Data Portability ---
Author Organization [facility], [address] Address [address] [place] [address] Assessment No assessment recorded. Plan of Treatment Reminders Order Date Submit Date Provider Last Modified By Organization Details Last Modified Time Details Appointments None recorded. Lab urinalysis, dipstick 2022 023 [place] [id number] [facility], [address] [place] [address], [phone], 12:49:25 test, urine 2022 023 [place] [address] [facility], [address] [place] [address], [address], 12:49:25 Referral None recorded. Procedures None recorded. Surgeries None recorded. Imaging None recorded. Medication Orders cyclobenzap rine 10 mg tablet 2022 023 [id number], [address] [place], [address], 3 12:49:27 naproxen 500 mg tablet 2022 023 [id number], [address] [place], [address], 3 12:49:27 Patient TargetsNo targets recorded. Patient Instructions Encounter Date Encounter Id Patient Instructions Last Modified By Organization Details Last Modified Time 08/31/2022 [id number] back pain: care instructions [place] [id number] Not available 08/31/2022 12:49:25 Reason for Referral None Reported. Results Created Date Observation Date Name Description Value Unit Range Abnormal Flag Note LastModifiedBy Organization Detail LastModifiedTime 09/01/19 23 08/31/2022 pregn catarino test, urine Unknown Analyte Normal = Negati ve Not Available 2099eulogio franklin [address], [place], [address], 08/31/2022 11:51:08 09/01/19 23 08/31/2022 pregn catarino test, urine Unknown Analyte negati ve Not Available 2099eulogio franklin [address], [place], [address], 08/31/2022 11:51:08 09/01/19 23 08/31/2022 urina lysis , dipst ick Unknown Analyte Normal = light yellow Not Available 2099eulogio franklin [address], [place], [address], 08/31/2022 11:51:03 09/01/19 23 08/31/2022 urina lysis , dipst ick Unknown Analyte Yellow Not Available [address], [place], [address], 08/31/2022 11:51:03 09/01/19 23 08/31/2022 urina lysis , dipst ick Unknown Analyte Normal = clear Not Available 2099eulogio franklin [address], [place], [address], 08/31/2022 11:51:03 09/01/19 23 08/31/2022 urina lysis , dipst ick Unknown Analyte Clear Not Available [address], [place], [address], 08/31/2022 11:51:03 09/01/19 23 08/31/2022 urina lysis , dipst ick Unknown Analyte Normal = negati ve Not Available eulogio [address], [place], [address], 08/31/2022 11:51:03 09/01/19 23 08/31/2022 urina lysis , dipst ick Unknown Analyte Normal = Negati ve Not Available eulogio franklin [address], [place], [address], 08/31/2022 11:51:03 09/01/19 23 08/31/2022 urina lysis , dipst ick Unknown Analyte Normal = Negati ve Not Available [facility] rigoberto [address], [place], [address], 08/31/2022 11:51:03 09/01/19 23 08/31/2022 urina lysis , dipst ick Unknown Analyte Negati ve Not Available [facility] rigoberto [address], [place], [address], 08/31/2022 11:51:03 09/01/19 23 08/31/2022 urina lysis , dipst ick Unknown Analyte Negati ve Not Available eulogio franklin [address], [place], [address], 08/31/2022 11:51:03 09/01/19 23 08/31/2022 urina lysis , dipst ick Unknown Analyte Negati ve Not Available [facility] rigoberto [address], [place], [address], 08/31/2022 11:51:03 09/01/19 23 08/31/2022 urina lysis , dipst ick Unknown Analyte Normal = 1.010, 1.015, 1.020 Not Available eulogio franklin [address], [place], [address], 08/31/2022 11:51:03 09/01/19 23 08/31/2022 urina lysis , dipst ick Unknown Analyte 1.020 Not Available ronnie [address], [place], [address], 08/31/2022 11:51:03 09/01/19 23 08/31/2022 urina lysis , dipst ick Unknown Analyte Normal = Negati ve Not Available eulogio franklin [address], [place], [address], 08/31/2022 11:51:03 09/01/19 23 08/31/2022 urina lysis , dipst ick Unknown Analyte Modera te Not Available eulogio franklin [address], [place], [place], [address], 08/31/2022 11:51:03 09/01/19 23 08/31/2022 urina lysis , dipst ick Unknown Analyte Normal = 6.5, 7.0, 7.5, 8.0 Not Available [facility] [address], [place], [place], [address], 08/31/2022 11:51:03 09/01/19 23 08/31/2022 urina lysis , dipst ick Unknown Analyte 6.5 Not Available [address], [place], [address], 08/31/2022 11:51:03 09/01/19 23 08/31/2022 urina lysis , dipst ick Unknown Analyte Normal = Negati ve Not Available eulogio [address], [place], [address], 08/31/2022 11:51:03 09/01/19 23 08/31/2022 urina lysis , dipst ick Unknown Analyte Negati ve Not Available [address], [place], [address], 08/31/2022 11:51:03 09/01/19 23 08/31/2022 urina lysis , dipst ick Unknown Analyte Normal = 0.2, 1.0 Not Available 2099eulogio franklin [address], [place], [address], 08/31/2022 11:51:03 09/01/19 23 08/31/2022 urina lysis , dipst ick Unknown Analyte 0.2 E.U./d L Not Available [address] [place] [address], [place], [address], 08/31/2022 11:51:03 09/01/19 23 08/31/2022 urina lysis , dipst ick Unknown Analyte Normal = Negati ve Not Available [address] [place] [address], [place], [address], 08/31/2022 11:51:03 09/01/19 23 08/31/2022 urina lysis , dipst ick Unknown Analyte Normal = Negati ve Not Available [address], [place], [address], 08/31/2022 11:51:03 09/01/19 23 08/31/2022 urina lysis , dipst ick Unknown Analyte Negati ve Not Available [address] [place] [address], [place], [address], 08/31/2022 11:51:03 09/01/19 23 08/31/2022 urina lysis , dipst ick Unknown Analyte Negati ve Not Available [address] [place] [address], [place], [address], 08/31/2022 11:51:03 Result Notes None recorded. Problems No Known Problems Procedures Surgical History Date Name Laterality Status Provider Name and Address Organization Details Recorded Time section completed [facility] 08/31/2022 11:49:52 excision of ganglion cyst completed [...] Updated DateTime 3 167.64 cm 34.1 kg/m2 03507.9 9 g 19 /min 99 % 99 % 65 /min 98 [degF] 159 mm[Hg] 81 mm[Hg] [facility] 11:52:05 Social History Question Answer Notes LastModified by [employer]URL[employer] ion Details LastModified Time Tobacco Smoking Status Current Every Day Smoker [facility] 08/31/2022 11:49:37 How Much Tobacco Do You Smoke? 0.25 PPD [email or web address] Information not available 08/31/2022 Have You Recently Traveled Abroad? No Information not available 08/31/2022 Sex: Unknown Functional Status Question Answer Note LastModified by [employer] ion Details LastModified Time Do you use any illicit or recreational drugs? No [email or web address] Information not available 08/31/2022 Do you or have you ever used any other forms of tobacco or nicotine? No [email or web address] Information not available 08/31/2022 What is your level of alcohol consumption? None [email or web address] Information not available 08/31/2022 Mental Status None recorded. Family History Relationship Description Onset Age of this Age Resolved Age Notes LastModified by Organization Details LastModified Time Father No current problems or disability Not available 08/31 11:49:15 Mother No current problems or disability [email or web address] Not available 08/31 11:49:15 Medical History No medical history recorded. Gynecological History Statement/Question Response Date of LMP Obstetrics History GPAL:G 0 P 0 0 0 0 Past Encounters Encounter ID Performer Location Encounter Start Date Encounter Closed Date Diagnosis/Indication Diagnosis SNOMED-CT Code Diagnosis ICD10 Code Diagnosis Note [id number] [facility] [address] [place] [address] 12/25/2014 09:34:50 12/25/2014 10:29:33 [id number] [facility] [address] [place] [address] 06/19/2015 09:43:53 06/19/2015 10:30:20 [id number] Jennifer Hewitt MD [address] [place] [address] 08/31/2022 09:45:19 08/31/2022 12:54:43 Low back pain [id number] M54.50 Please follow up with PCP or [...] ID Denise Member ID Guarantor Name 08/31/[address] [place] [address] [id number] Love Douglass [id number] Love Douglass Notes Date Note Type Note Provider Name and Address Organization Details Recorded Time 3 text/html Back Pain/Injury UCReported bypatient.source of patient informationInformation obtained from patient Location:pain is not radiating Quality:muscle spasms Duration:3 days Aggravating Factors:movement/positioni ng;standing;twisting;walki ng Previous InjuryNo prior injury to affected body part Jennifer Hewitt MD [address] [place], [address], [place] - [facility] 09/05/2022 08:23:21 OBGyn Episode No OBEpisode recorded.
== END 2024-09-25 10:11 | disposition home or self-care (01) ==
LOC: HO.HMCFM 09:11
PROVIDERS: PCP Physician Assistant; Visit Provider Physician Assistant
DX: G44.52 New daily persistent headache (NDPH) (principal); E11.69 Type 2 diabetes mellitus with other specified complication; H53.9 Unspecified visual disturbance; E78.5 Hyperlipidemia, unspecified; I10 Essential (primary) hypertension

== ENCOUNTER → 2024-09-25 09:10 | Outpatient (BNVA) | payer OTHER, SELFPAY | PROVIDERS: PCP Physician Assistant; Visit Provider Physician Assistant ==

== ENCOUNTER → 2024-10-04 14:39 | Outpatient (BNV) | payer OTHER, SELFPAY | PROVIDERS: PCP Physician Assistant; Visit Provider Radiology Diagnostic Radiology | DX: R90.82 White matter disease, unspecified (principal); G93.5 Compression of brain | CPT/HCPCS: 70551 ==

== ENCOUNTER 2024-10-04 14:41 | Outpatient (REF) | payer OTHER, SELFPAY ==
--- NOTE | ~2024-10-04 | MR_ITS ---
EXAMINATION: MR BRAIN WITHOUT CONTRAST CLINICAL INFORMATION: Headache. COMPARISON: None available. TECHNIQUE: MRI of the brain was obtained using routine sequences without contrast. FINDINGS: No restricted diffusion. No acute intracranial hemorrhage, mass effect, midline shift, hydrocephalus or herniation. Samuel-white matter differentiation is normal. Bilateral, multifocal, punctate, subcortical and deep white matter hyperintense T2 FLAIR signal involving centrum semiovale and waller radiata, nonspecific. Posterior cranial fossa contents demonstrated 4 mm position of the cerebellar tonsils below foramen magnum. Sellar/suprasellar region demonstrated no signal abnormality or masses. Flow-void signal within the main cerebral vessels is normal. Polypoid mucosal thickening, maxillary sinuses. Retention cyst, right maxillary sinus. MR/MR head/brain wo con IMPRESSION: Cerebellar tonsillar ectopia. Nonspecific white matter T2 FLAIR signal. No acute stroke nor hemorrhage. Electronically signed by: Seven Miranda MD 10/06/2024 07:32 AM EDT
== END 2024-10-04 14:42 | disposition home or self-care (01) ==
LOC: HO.MRI 14:41
PROVIDERS: PCP Physician Assistant; Visit Provider Physician Assistant
DX: G44.52 New daily persistent headache (NDPH) (principal)
CPT/HCPCS: 70551

== ENCOUNTER 2024-10-09 12:07 | Outpatient (REF) | payer OTHER, SELFPAY | END 2024-10-09 12:08 | disposition home or self-care (01) | LOC: HO.MAMMO 12:07 | PROVIDERS: PCP Physician Assistant; Visit Provider Advanced Practice Midwife | DX: Z12.31 Encounter for screening mammogram for malignant neoplasm of breast (principal) | CPT/HCPCS: 77063; 77067 ==

== ENCOUNTER → 2024-10-09 12:15 | Outpatient (BNV) | payer OTHER, SELFPAY | PROVIDERS: PCP Physician Assistant; Visit Provider Internal Medicine | DX: Z12.31 Encounter for screening mammogram for malignant neoplasm of breast (principal) | CPT/HCPCS: 77063; 77067 ==

== ENCOUNTER → 2024-10-20 14:57 | Outpatient (REF) | payer OTHER, SELFPAY ==
--- OUTSIDE RECORDS SUMMARY | 2024-10-20 16:13 | XMS_ITS | Data Portability ---
Author Organization DANYELLE Johnson [facility], [address] Address [address] [place] [address] Assessment No assessment recorded. Plan of Treatment Reminders Order Date Submit Date Provider Last Modified By Organization Details Last Modified Time Details Appointments None recorded. Lab urinalysis, dipstick 2022 023 [place] [id number], [address] [place] [address], [address], 12:49:25 test, urine 2022 023 [place] [address], [address] [place] [address], [address], 12:49:25 Referral None recorded. Procedures None recorded. Surgeries None recorded. Imaging None recorded. Medication Orders cyclobenzap rine 10 mg tablet 2022 023 [facility]/Pharmacy #[id number], [address] [place], [address], 12:49:27 naproxen 500 mg tablet [address]/Pharmacy #2339, [address] [place], [address], 12:49:27 Patient TargetsNo targets recorded. Patient Instructions Encounter Date Encounter Id Patient Instructions Last Modified By Organization Details Last Modified Time 08/31/2022 [id number] back pain: care instructions [place] [address] Not available 08/31/2022 12:49:25 Reason for Referral None Reported. Results Created Date Observation Date Name Description Value Unit Range Abnormal Flag Note LastModifiedBy Organization Detail LastModifiedTime 09/01/19 23 08/31/2022 pregn catarino test, urine Unknown Analyte Normal = Negati ve Not Available 2099eulogio franklin [address], [place], [address], 08/31/2022 11:51:08 09/01/19 23 08/31/2022 pregn catarino test, urine Unknown Analyte negati ve Not Available 2099eulogio franklin [address], [place], [address], 08/31/2022 11:51:08 09/01/19 23 08/31/2022 urina lysis , dipst ick Unknown Analyte Normal = light yellow Not Available 2099eulogio franklin [address], [place], [address], 08/31/2022 11:51:03 09/01/19 23 08/31/2022 urina lysis , dipst ick Unknown Analyte Yellow Not Available [address], [place], [address], 08/31/2022 11:51:03 09/01/19 23 08/31/2022 urina lysis , dipst ick Unknown Analyte Normal = clear Not Available 2099eulogio franklin [address], [place], [address], 08/31/2022 11:51:03 09/01/19 23 08/31/2022 urina lysis , dipst ick Unknown Analyte Clear Not Available [address], [place], [address], 08/31/2022 11:51:03 09/01/19 23 08/31/2022 urina lysis , dipst ick Unknown Analyte Normal = negati ve Not Available [facility], [place], [address], 08/31/2022 11:51:03 09/01/1908/31/2022 urina lysis , dipst ick Unknown Analyte Normal = Negati ve Not Available eulogio franklin [address], [place], [address], 08/31/2022 11:51:03 09/01/19 23 08/31/2022 urina lysis , dipst ick Unknown Analyte Normal = Negati ve Not Available eulogio franklin [address], [place], [address], 08/31/2022 11:51:03 09/01/19 23 08/31/2022 urina lysis , dipst ick Unknown Analyte Negati ve Not Available eulogio [address], [place], [address], 08/31/2022 11:51:03 09/01/1908/31/2022 urina lysis , dipst ick Unknown Analyte Negati ve Not Available eulogio franklin [address], [place], [address], 08/31/2022 11:51:03 09/01/1908/31/2022 urina lysis , dipst ick Unknown Analyte Negati ve Not Available [facility] [address], [place], [address], 08/31/2022 11:51:03 09/01/19 23 08/31/2022 urina lysis , dipst ick Unknown Analyte Normal = 1.010, 1.015, 1.020 Not Available eulogio franklin [address], [place], [address], 08/31/2022 11:51:03 09/01/19 23 08/31/2022 urina lysis , dipst ick Unknown Analyte 1.020 Not Available ronnie [address], [place], [address], 08/31/2022 11:51:03 09/01/19 23 08/31/2022 urina lysis , dipst ick Unknown Analyte Normal = Negati ve Not Available eulogio [address], [place], [address], 08/31/2022 11:51:03 09/01/19 23 08/31/2022 urina lysis , dipst ick Unknown Analyte Modera te Not Available eulogio franklin [address], [place], [address], 08/31/2022 11:51:03 09/01/19 23 08/31/2022 urina lysis , dipst ick Unknown Analyte Normal = 6.5, 7.0, 7.5, 8.0 Not Available eulogio [address], [place], [place], [address], 08/31/2022 11:51:03 09/01/19 23 08/31/2022 urina lysis , dipst ick Unknown Analyte 6.5 Not Available [address], [place], [place], [address], 08/31/2022 11:51:03 09/01/19 23 08/31/2022 urina lysis , dipst ick Unknown Analyte Normal = Negati ve Not Available eulogio [address], [place], [place], [address], 08/31/2022 11:51:03 09/01/19 23 08/31/2022 urina lysis , dipst ick Unknown Analyte Negati ve Not Available eulogio [address], [place], [address], 08/31/2022 11:51:03 09/01/19 23 08/31/2022 urina lysis , dipst ick Unknown Analyte Normal = 0.2, 1.0 Not Available eulogio franklin [address], [place], [address], 08/31/2022 11:51:03 09/01/19 23 08/31/2022 urina lysis , dipst ick Unknown Analyte 0.2 E.U./d L Not Available [facility] [address], [place], [address], 08/31/2022 11:51:03 09/01/19 23 08/31/2022 urina lysis , dipst ick Unknown Analyte Normal = Negati ve Not Available [address], [place], [address], 08/31/2022 11:51:03 09/01/19 23 08/31/2022 urina lysis , dipst ick Unknown Analyte Normal = Negati ve Not Available [facility] [address], [place], [address], 08/31/2022 11:51:03 09/01/19 23 08/31/2022 urina lysis , dipst ick Unknown Analyte Negati ve Not Available [address], [place], [address], 08/31/2022 11:51:03 09/01/19 23 08/31/2022 urina lysis , dipst ick Unknown Analyte Negati ve Not Available [address] [place], [address], 08/31/2022 11:51:03 Result Notes None recorded. Problems No Known Problems Procedures Surgical History Date Name Laterality Status Provider Name and Address Organization Details Recorded Time section completed SOPHIA [facility] 08/31/2022 11:49:52 excision of ganglion cyst completed SOPHIA Gomez [facility] 08/31/2022 11:50:31 Dilation and curettage completed SOPHIA Gomez [facility] 08/31/2022 11:50:46 Imaging Results None recorded. [...] Pulse oximetry Heart rate Body temperature Systolic And Diastolic Provider Name and Address Organization Details Last Updated DateTime 3 167.64 cm 34.1 kg/m2 37707.9 9 g 19 /min 99 % 99 % 65 /min 98 [degF] 159/81 mm[Hg] [facility] 11:52:05 Social History Question Answer Notes LastModified by [employer] ion Details LastModified Time Tobacco Smoking Status Current Every Day Smoker DANYELLE Lizama [facility] 08/31/2022 11:49:37 How Much Tobacco Do You Smoke? 0.25 PPD Information not available 08/31/2022 Have You Recently Traveled Abroad? No [email or web address] Information not available 08/31/2022 Sex: Unknown Functional Status Question Answer Note LastModified by Organizat ion Details LastModified Time Do you use any illicit or recreational drugs? No [email or web address] Information not available 08/31/2022 Do you or have you ever used any other forms of tobacco or nicotine? No Information not available 08/31/2022 What is your level of alcohol consumption? None [email or web address] Information not available 08/31/2022 Mental Status None recorded. Family History Relationship Description Onset Age of this Age Resolved Age Notes LastModified by Organization Details LastModified Time Father No current problems or disability [email or web address] Not available 08/31 11:49:15 Mother No current problems or disability [email or web address] Not available 08/31 11:49:15 Medical History No medical history recorded. Gynecological History Statement/Question Response Date of LMP Obstetrics History GPAL:G 0 P 0 0 0 0 Past Encounters Encounter ID Performer Location Encounter Start Date Encounter Closed Date Diagnosis/Indication Diagnosis SNOMED-CT Code Diagnosis ICD10 Code Diagnosis Note [id number] [facility] [address] [place] [address] 12/25/2014 09:34:50 12/25/2014 10:29:33 [id number] [facility] [address] [place] [address] 06/19/2015 09:43:53 06/19/2015 10:30:20 [id number] Jennifer Hewitt MD [address] [place] [address] 08/31/2022 09:45:19 08/31/2022 12:54:43 Low back pain [id number] M54.50 Please follow up with PCP or [...] ID Denise Member ID Guarantor Name 08/31/[address] [place] [address] [id number] Love Douglass [id number] Love Douglass Notes Date Note Type Note Provider Name and Address Organization Details Recorded Time 3 text/html Back Pain/Injury UCReported bypatient.source of patient informationInformation obtained from patient Location:pain is not radiating Quality:muscle spasms Duration:3 days Aggravating Factors:movement/positioni ng;standing;twisting;walki ng Previous InjuryNo prior injury to affected body part Jennifer Hewitt MD [address] [place], [address], [place] - [facility] 09/05/2022 08:23:21 OBGyn Episode No OBEpisode recorded.
== END ==
LOC: HO.SL 14:57
PROVIDERS: PCP Physician Assistant; Visit Provider Physician Assistant
DX: R06.81 Apnea, not elsewhere classified (principal); R06.83 Snoring
CPT/HCPCS: 95806

== ENCOUNTER → 2024-10-20 15:06 | Outpatient (BNV) | payer OTHER, SELFPAY | PROVIDERS: PCP Physician Assistant; Visit Provider Internal Medicine | DX: R06.83 Snoring (principal) | CPT/HCPCS: 95806 ==

== ENCOUNTER 2024-10-30 13:00 | Outpatient (AMB) | payer OTHER, SELFPAY ==
--- NOTE | 2024-10-30 13:10 | A.OFFVIS_ITS ---
Vital Signs 10/30/24 13:11 Height 5 ft 5 in Weight 200 lb BMI 33.3 Intake Visit Reasons: inj- RT knee pain, last inj 07/30/24 Intake Note: Love is a 54 year old female who presents with complaints of right knee pain. She describes her pain as sharp in nature. She has tried Celebrex and Tylenol which gave her mild relief. She has also had cortisone injections in the past which gave her fairly good relief. She wishes to hold off on surgery if at all possible. Allergies No Known Allergies (No Known Allergies*) Allergy (Verified 10/30/24 13:11) Medication List - Last Reconciled 10/30/24 by Victor Hugo Abrams MD atorvastatin 10 mg PO BEDTIME blood sugar diagnostic (FreeStyle Lite Strips) Use once daily As directed to check blood glucose blood-glucose meter (FreeStyle Lite Meter kit) Use daily As directed to check blood sugars celecoxib 200 mg PO DAILY PRN dulaglutide (Trulicity) 0.75 mg (0.5 mL) subcut QWEEK lancets (FreeStyle Lancets) use once daily as directed to check blood glucose levocetirizine (Xyzal) 5 mg PO DAILY lisinopril 10 mg PO DAILY mecobalamin (vitamin B12) (B12 Active) 1,000 mcg PO DAILY metformin ER 500 mg PO DAILY varenicline tartrate (Chantix) 1 mg PO BID [facility] Medical History (Updated 09/25/24 @ 09:59 by Gabby Mathew PA-C) Lyme disease HTN (hypertension) Ganglion cyst Pilonidal cyst Endometrial polyp Carpal tunnel syndrome Surgical History (Updated 08/14/24 @ 09:32 by RESHMA Rowan) History of carpal tunnel surgery Hx of dilation and curettage H/O section Family History (Updated 08/14/24 @ 09:33 by RESHMA Rowan) Mother Hypertension High cholesterol Father Hypertension Social History Housing: House Alcohol intake: never Patient Tobacco Use Status: Current everyday Tobacco user Cigarettes Per Day: 5 Years Smoked: 25 e-Cigarette/Vaping Use: Never Used service: No Current occupational status: employed 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 Current occupational exposures/hazards: No Cognitive needs: No Hearing needs: No Vision needs: No Physical Exam Vital Signs: BMI result Body Mass Index 33.3 Const Other: Well-nourished well-developed very friendly female awake alert and oriented x3 in no acute distress Extrem Other: Bilateral lower extremity examination shows good capillary refill, no skin lesions noted, normal sensation light touch Right knee examination shows a minimal effusion, palpable crepitus with range of motion, pain with range of motion, no instability Office Procedures AMB Joint Injection/Aspiration Joint Injection/Aspiration Primary Site: right knee Prep: site was prepped using aseptic technique Injected: 40 mg of, DepoMedrol and 1% plain lidocaine Procedure: The patient tolerated the procedure well Coding - Large joint Procedure code (CPT) selection complete Results Reviewed Results Reviewed: X-rays of the patient's right knee taken previously show joint space narrowing, subchondral sclerosis, no acute bony abnormalities Assessment & Plan Assessment & Plan (1) Arthritis of right knee: Code(s): M17.11 - Unilateral primary osteoarthritis, right knee Category: Medical Plan Ms. Douglass presents with right knee pain due to osteoarthritis. I had a lengthy discussion with the patient regarding the treatment options. The risks and benefits of a right knee cortisone injection were discussed at length with the patient. The patient wished to proceed. She tolerated the injection well. She will continue with her home exercise program. She will contact me prior to her follow-up appointment in 3 months should any questions or concerns arise. Feel free to call me at any time should questions regarding her orthopedic management arise. I spent 21 minutes in reviewing the patient's records and imaging studies, seeing the patient and documenting in the medical record. Orders: Orders AMB Joint Injection/Aspiration Today M17.11 - Unilateral primary osteoarthritis, right knee Coding Level of Care Code Est Pt Level 3 (00676) Complex EM visit Add On G2211 Diagnoses Arthritis of right knee M17.11 CPT Codes Coding - 66975 Large joint: 01027 - Large joint ([id number])
[2024-10-30 13:11] VITALS: BMI 33.3
--- OUTSIDE RECORDS SUMMARY | 2024-10-30 13:12 | XMS_ITS | Data Portability ---
Author Organization DANYELLE Johnson s, [address] Address [address] [place] [address] Assessment No assessment recorded. Plan of Treatment Reminders Order Date Submit Date Provider Last Modified By Organization Details Last Modified Time Details Appointments None recorded. Lab urinalysis, dipstick 2022 023 [place] [id number], [address] [place] [address], [address], 12:49:25 test, urine 2022 023 [place] [address] 20[facility], [address] [place] [address], [address], 12:49:25 Referral None recorded. Procedures None recorded. Surgeries None recorded. Imaging None recorded. Medication Orders cyclobenzap rine 10 mg tablet 2022 023 [facility]/Pharmacy #2339, [address] [place], [address], 12:49:27 naproxen 500 mg tablet [address]/Pharmacy #2339, [address] [place], [address], 12:49:27 Patient TargetsNo targets recorded. Patient Instructions Encounter Date Encounter Id Patient Instructions Last Modified By Organization Details Last Modified Time 08/31/2022 [id number] back pain: care instructions [place] [id number] Not available 08/31/2022 12:49:25 Reason for Referral None Reported. Results Created Date Observation Date Name Description Value Unit Range Abnormal Flag Note LastModifiedBy Organization Detail LastModifiedTime 09/01/19 23 08/31/2022 pregn catarino test, urine Unknown Analyte Normal = Negati ve Not Available 2099eulogio franklin [address], [place], [address], 08/31/2022 11:51:08 09/01/19 23 08/31/2022 pregn catarino test, urine Unknown Analyte negati ve Not Available 2099eulogio franklin [address], [place], [address], 08/31/2022 11:51:08 09/01/19 23 08/31/2022 urina lysis , dipst ick Unknown Analyte Normal = light yellow Not Available 2099eulogio franklin [address], [place], [address], 08/31/2022 11:51:03 09/01/19 23 08/31/2022 urina lysis , dipst ick Unknown Analyte Yellow Not Available [address], [place], [address], 08/31/2022 11:51:03 09/01/19 23 08/31/2022 urina lysis , dipst ick Unknown Analyte Normal = clear Not Available 2099eulogio franklin [address], [place], [address], 08/31/2022 11:51:03 09/01/19 23 08/31/2022 urina lysis , dipst ick Unknown Analyte Clear Not Available [address], [place], [address], 08/31/2022 11:51:03 09/01/19 23 08/31/2022 urina lysis , dipst ick Unknown Analyte Normal = negati ve Not Available [facility], [place], [address], 08/31/2022 11:51:03 09/01/1908/31/2022 urina lysis , dipst ick Unknown Analyte Normal = Negati ve Not Available eulogio franklin [address], [place], [address], 08/31/2022 11:51:03 09/01/19 23 08/31/2022 urina lysis , dipst ick Unknown Analyte Normal = Negati ve Not Available eulogio franklin [address], [place], [address], 08/31/2022 11:51:03 09/01/19 23 08/31/2022 urina lysis , dipst ick Unknown Analyte Negati ve Not Available eulogio [address], [place], [address], 08/31/2022 11:51:03 09/01/1908/31/2022 urina lysis , dipst ick Unknown Analyte Negati ve Not Available eulogio franklin [address], [place], [address], 08/31/2022 11:51:03 09/01/1908/31/2022 urina lysis , dipst ick Unknown Analyte Negati ve Not Available [facility] [address], [place], [address], 08/31/2022 11:51:03 09/01/19 23 08/31/2022 urina lysis , dipst ick Unknown Analyte Normal = 1.010, 1.015, 1.020 Not Available eulogio franklin [address], [place], [address], 08/31/2022 11:51:03 09/01/19 23 08/31/2022 urina lysis , dipst ick Unknown Analyte 1.020 Not Available ronnie [address], [place], [address], 08/31/2022 11:51:03 09/01/19 23 08/31/2022 urina lysis , dipst ick Unknown Analyte Normal = Negati ve Not Available eulogio [address], [place], [address], 08/31/2022 11:51:03 09/01/19 23 08/31/2022 urina lysis , dipst ick Unknown Analyte Modera te Not Available eulogio franklin [address], [place], [address], 08/31/2022 11:51:03 09/01/19 23 08/31/2022 urina lysis , dipst ick Unknown Analyte Normal = 6.5, 7.0, 7.5, 8.0 Not Available eulogio [address], [place], [place], [address], 08/31/2022 11:51:03 09/01/19 23 08/31/2022 urina lysis , dipst ick Unknown Analyte 6.5 Not Available [address], [place], [place], [address], 08/31/2022 11:51:03 09/01/19 23 08/31/2022 urina lysis , dipst ick Unknown Analyte Normal = Negati ve Not Available eulogio [address], [place], [place], [address], 08/31/2022 11:51:03 09/01/19 23 08/31/2022 urina lysis , dipst ick Unknown Analyte Negati ve Not Available eulogio [address], [place], [address], 08/31/2022 11:51:03 09/01/19 23 08/31/2022 urina lysis , dipst ick Unknown Analyte Normal = 0.2, 1.0 Not Available eulogio franklin [address], [place], [address], 08/31/2022 11:51:03 09/01/19 23 08/31/2022 urina lysis , dipst ick Unknown Analyte 0.2 E.U./d L Not Available [facility] [address], [place], [address], 08/31/2022 11:51:03 09/01/19 23 08/31/2022 urina lysis , dipst ick Unknown Analyte Normal = Negati ve Not Available [address], [place], [address], 08/31/2022 11:51:03 09/01/19 23 08/31/2022 urina lysis , dipst ick Unknown Analyte Normal = Negati ve Not Available [facility] [address], [place], [address], 08/31/2022 11:51:03 09/01/19 23 08/31/2022 urina lysis , dipst ick Unknown Analyte Negati ve Not Available [address], [place], [address], 08/31/2022 11:51:03 09/01/19 23 08/31/2022 urina lysis , dipst ick Unknown Analyte Negati ve Not Available [address] [place], [address], 08/31/2022 11:51:03 Result Notes None recorded. Problems No Known Problems Procedures Surgical History Date Name Laterality Status Provider Name and Address Organization Details Recorded Time section completed SOPHIA BASSETT - [facility] 08/31/2022 11:49:52 excision of ganglion cyst completed SOPHIA BASSETT - [facility] 08/31/2022 11:50:31 Dilation and curettage completed SOPHIA CORTEZ PA - [facility] 08/31/2022 11:50:46 Imaging Results [...] and Address Organization Details Last Updated DateTime 167.64 cm 34.1 kg/m2 06921.9 9 g 8 19 /min 99 % 99 % 65 /min 98 [degF] 159/81 mm[Hg] SOPHIA BASSETT - [facility] 11:52:05 Social History Question Answer Notes LastModified by Organizat ion Details LastModified Time Tobacco Smoking Status Current Every Day Smoker SOPHIA barrow PA [facility] 08/31/2022 11:49:37 How Much Tobacco Do You Smoke? 0.25 PPD [email or web address] Information not available 08/31/2022 Have You Recently Traveled Abroad? No [email or web address] Information not available 08/31/2022 Sex: Unknown Functional Status Question Answer Note LastModified by Organizat ion Details LastModified Time Do you use any illicit or recreational drugs? No [email or web address] Information not available 08/31/2022 Do you or have you ever used any other forms of tobacco or nicotine? No [email or web address] Information not available 08/31/2022 What is your level of alcohol consumption? None [email or web address] Information not available 08/31/2022 Mental Status None recorded. Family History Relationship Description Onset Age of this Age Resolved Age Notes LastModified by Organization Details LastModified Time Father No current problems or disability [email or web address] Not available 08/31 11:49:15 Mother No current problems or disability [email or web address] Not available 08/31 11:49:15 Medical History No medical history recorded. Gynecological History Statement/Question Response Date of LMP Obstetrics History GPAL:G 0 P 0 0 0 0 Past Encounters Encounter ID Performer Location Encounter Start Date Encounter Closed Date Diagnosis/Indication Diagnosis SNOMED-CT Code Diagnosis ICD10 Code Diagnosis Note [id number] [facility] [address] [place] [address] 12/25/2014 09:34:50 12/25/2014 10:29:33 [id number] [facility] [address] [place] [address] 06/19/2015 09:43:53 06/19/2015 10:30:20 [id number] Jennifer Hewitt MD [facility] [address] [place] [address] 08/31/2022 09:45:19 08/31/2022 12:54:43 Low back pain [id number] M54.50 Please follow up with PCP or [...] ID Denise Member ID Guarantor Name 08/31/[address] [place] [address] [id number] Love Douglass [id number] Love Douglass Notes Date Note Type Note Provider Name and Address Organization Details Recorded Time 08/31/2022 text/html Back Pain/Injury UCReported by PatientHPIFor quality, patient reportsmuscle spasms. For aggravating factors, patient reportsmovement/pos itioning,standing,t wisting, andwalking. For source of patient information, patient reportsinformation obtained from patient. For location, patient reportspain is not radiating. For duration, patient reports3 days. For previous injury, patient reportsno prior injury to affected body part. Jennifer Hewitt MD [address] [place], [address], [place] - [facility] 09/05/2022 08:23:21 OBGyn Episode No OBEpisode recorded.
== END 2024-10-30 13:38 | disposition home or self-care (01) ==
LOC: HO.HOS 13:01
PROVIDERS: PCP Physician Assistant; Visit Provider Orthopaedic Surgery
DX: M17.11 Unilateral primary osteoarthritis, right knee (principal)
CPT/HCPCS: 20610; 99213

== ENCOUNTER → 2024-10-30 13:00 | Outpatient (BNVA) | payer OTHER, SELFPAY | PROVIDERS: PCP Physician Assistant; Visit Provider Orthopaedic Surgery | DX: M17.11 Unilateral primary osteoarthritis, right knee (principal) | CPT/HCPCS: 20610; J1010; J2003 ==

== ENCOUNTER 2024-11-12 07:52 | Outpatient (AMB) | payer OTHER, SELFPAY ==
[2024-11-12 08:23] VITALS: BP 122/62; PULSE 57; BMI 31.5
--- NOTE | 2024-11-12 08:23 | MHC.OFFVIS ---
Vital Signs 11/12/24 08:23 Height 5 ft 5 in Weight 189 lb 9.561 oz BMI 31.5 BP 122/62 Blood Pressure Location Lt brachial Position Sitting Pulse 57 Pulse Source Monitor Intake Visit Reasons: [employer]/Mathew/Cardiac murmur/ HTN Allergies No Known Allergies (No Known Allergies*) Allergy (Verified 10/30/24 13:11) Medication List - Last Reconciled 11/12/24 by Robert Desouza MD atorvastatin 10 mg PO BEDTIME blood sugar diagnostic (FreeStyle Lite Strips) Use once daily As directed to check blood glucose blood-glucose meter (FreeStyle Lite Meter kit) Use daily As directed to check blood sugars celecoxib 200 mg PO DAILY PRN dulaglutide (Trulicity) 0.75 mg (0.5 mL) subcut QWEEK lancets (FreeStyle Lancets) use once daily as directed to check blood glucose levocetirizine (Xyzal) 5 mg PO DAILY lisinopril 10 mg PO DAILY mecobalamin (vitamin B12) (B12 Active) 1,000 mcg PO DAILY HPI Comments Details: Thank you for referring Love in cardiology consultation today for aortic valve murmur and echocardiogram showing mild aortic stenosis and regurgitation. She is a pleasant 54-year-old woman with prior history of hypertension, diabetes, hyperlipidemia who recently on physical exam was noted to have murmur and was referred for an echocardiogram. Echocardiogram showed calcific aortic valve changes noted with resultant mild aortic stenosis and regurgitation. 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 She denies any exertional chest pain or shortness of breath. She says she does not get much time to exercise but on the we can also she has been busy and undergo and she has no symptoms. She had no symptoms of claudication. Denies any orthopnea, PND, leg edema. No palpitations, lightheadedness, syncope. She also smokes significantly in his trying to quit. Recently started on Trulicity for elevated sugars. She understands that she has to participate in more aggressive lifestyle modification in his thinking seriously about it. She also has genetically strong family history for peripheral vascular disease in her mother who had aortobifemoral bypass in her early 50s. She has never had any cardiovascular events. 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 Current occupational exposures/hazards: No Cognitive needs: No Hearing needs: No Vision needs: No Review of Systems Const Denies weakness Eyes Reports no additional complaints ENT Reports no additional complaints and Denies dizziness Card Reports no additional complaints, Denies chest pain, Denies chest pain with activity, Denies syncope, Denies rapid heart rate, Denies pedal edema, Denies edema, Denies leg edema, Denies lightheadedness, Denies palpitations, Denies dyspnea, Denies dyspnea on exertion and Denies orthopnea Resp Denies cough, Denies dyspnea and Denies dyspnea on exertion GI Denies hematochezia and Denies change in stool character Musc Denies abnormal gait, Denies muscle cramps, Denies muscle weakness, Denies numbness, Denies radiating pain into limb and Denies tingling Neuro Denies abnormal gait, Denies dizziness, Denies syncope, Denies numbness, Denies tingling and Denies weakness Endo Denies palpitations Physical Exam Vital Signs: Last Vital Signs Pulse 57 11/12/24 08:23 BP 122/62 11/12/24 08:23 BMI result Body Mass Index 31.5 Const General: cooperative, comfortable, no acute distress, alert, awake and Physically active Nutritional Appearance: obese Orientation/consciousness: patient oriented x3 Limitations: no limitations HEENT Head: Yes normocephalic and Yes atraumatic Neck Neck: Yes trachea midline, Yes supple and Yes no JVD Resp Effort & Inspection: normal respiratory effort Auscultation: clear to auscultation bilaterally Cardio Jugular venous distension: no JVD Palpation: normal PMI Rate: regular rate Rhythm: regular rhythm Heart sounds: S1 normal heart sound present, S2 normal heart sound present, no click, no gallops, no murmurs and no rubs Peripheral pulses: dorsalis pedis present GI Auscultation: normal bowel sounds Skin General skin exam: no rashes or lesions noted Neuro General: patient oriented x3 and no focal motor deficits Extrem General: Yes no clubbing, cyanosis or edema Psych Appearance: grossly normal Office Procedures EKG Details: EKG shows sinus bradycardia with low-voltage QRS with otherwise normal EKG [id number], Complete Assessment & Plan Assessment & Plan (1) Aortic stenosis: Code(s): I35.0 - Nonrheumatic aortic (valve) stenosis Category: Medical Plan: Mild aortic stenosis with calcific aortic valve changes in his middle-aged woman which is early-onset aortic stenosis. Could not clearly demonstrated whether this was a bicuspid aortic valve which is a possibility for early-onset aortic stenosis. Although I think this is mostly premature atherosclerotic type event given her significant genetic risk factors as well as her risk factors of diabetes, hypertension, hyperlipidemia and smoking. I have strongly suggested her to participate in aggressive risk factor modification starting with complete abstinence from smoking. She is going to try. She has a prescription for Chantix. I discussed how to use Chantix with her. In the long run this is going to be extremely beneficial for her. She also has well controlled blood pressure on current therapy and continue the same. Target goal hemoglobin A1c closer to 6% given early diabetes stage. Also target goal LDL less than 70 mg/dL. Given calcific aortic valve changes are suggested her low-dose aspirin therapy for prevention of cerebrovascular events. She currently he is not having any active cardiac symptoms at this point time but I have suggested her to start gradually increasing her aerobic exercise program to improve long-term outcomes. She showed understanding to everything. We discussed in details about pathophysiology of aortic stenosis and gradually progressive nature of aortic stenosis. At current time she does not require any intervention. Will follow up in the clinic in 1 year's time, sooner p.r.n.. Thank you for allowing me to partake in her care Coding Level of Care Code New Pt Level 4 (93287) Complex EM visit Add On G2211 Diagnoses Aortic stenosis I35.0 CPT Codes EKG - CPT: 54555-[id number], Complete ([id number])
== END 2024-11-12 09:02 | disposition home or self-care (01) ==
LOC: HO.HCS 07:53
PROVIDERS: Visit Provider Internal Medicine Cardiovascular Disease
DX: I35.0 Nonrheumatic aortic (valve) stenosis (principal); R00.1 Bradycardia, unspecified
CPT/HCPCS: 93010; 99214; G2211

== ENCOUNTER → 2024-11-12 07:52 | Outpatient (BNVA) | payer OTHER, SELFPAY | PROVIDERS: Visit Provider Internal Medicine Cardiovascular Disease | DX: R00.1 Bradycardia, unspecified (principal); I35.0 Nonrheumatic aortic (valve) stenosis; I10 Essential (primary) hypertension; R01.1 Cardiac murmur, unspecified | CPT/HCPCS: 93005 ==

== ENCOUNTER 2024-11-18 06:02 | Outpatient (REF) | payer OTHER, SELFPAY ==
[2024-11-18 06:15] LABS: MANUAL DIFF FLAG NO
[2024-11-18 07:43] LABS: Appearance Urine Clear; Glucose Urine UA Negative (Negative); PH 6.0 (5.0-9.0); Specific Gravity - Urine 1.020 (1.005-1.025); UMIC TRIGGER UACC YES
[2024-11-18 07:48] LABS: Hematocrit 41.7 % (37.0-47.0); Hemoglobin 13.9 g/dl (12.0-16.0); Imm Gran Abs Auto 0.03 X10*3/uL (0.00-0.03); Imm Gran Pct Auto 0.4 % (0.0-0.4); Lymphocytes Absolute Auto 2.5 X10*3/uL (1.2-4.9); Mean Corpuscular HGB Conc 33.3 g/dl (31.0-35.0); Mean Corpuscular Hemoglobin 30.3 pg (27.0-33.0); Mean Corpuscular Volume 91.0 fL (80.0-98.0); NRBC Abs Auto 0.000 X10*3/uL (0.0-0.012); NRBC Pct Auto 0.0 /100WBC (0.0-0.2); Platelet Count 286 X10*3/uL (160-400); Red Blood Count 4.58 X10*6/uL (4.20-5.50); White Blood Count 8.6 X10*3/uL (4.8-10.8)
[2024-11-18 08:06] LABS: Hemoglobin A1C 145.0489 umol/L; Total Hemoglobin (HGBA1C) 3638.4304 umol/L
[2024-11-18 08:28] LABS: Microalbum/Creatinine Ratio Ur 6.3 ug/mg cr (<30)
[2024-11-18 08:30] LABS: Alanine Aminotransferase 21 U/L (0-31); Albumin Level 4.3 g/dL (3.5-5.0); Alkaline Phosphatase 54 U/L (39-117); Anion Gap 13 (12-20); Aspartate Amino Transferase 19 U/L (5-31); Blood Urea Nitrogen 15 mg/dL (9-16); Calcium 9.3 mg/dL (8.4-10.2); Carbon Dioxide 23 mmol/L (22-29); Chloride 108 mmol/L (96-108); Cholesterol 162 mg/dL (<200); Estimated Glomerular Filt Rate > 60; HDL Cholesterol 40 mg/dL (>40); Potassium 4.2 mmol/L (3.3-5.1); Sodium 140 mmol/L (135-145); Total Protein 6.5 g/dL (6.5-8.0); Triglycerides 149 mg/dL (<150)
[2024-11-18 08:56] LABS: Folate 5.7 ng/mL (> or = 4.0); Vitamin B12 275 pg/mL (200-900)
== END 2024-11-18 06:03 | disposition home or self-care (01) ==
LOC: HO.LAB 06:02
PROVIDERS: PCP Physician Assistant; Visit Provider Physician Assistant
DX: I10 Essential (primary) hypertension (principal); G44.52 New daily persistent headache (NDPH); R73.01 Impaired fasting glucose; R53.83 Other fatigue; E78.5 Hyperlipidemia, unspecified; H53.9 Unspecified visual disturbance; A69.20 Lyme disease, unspecified
CPT/HCPCS: 36415; 80053; 80061; 81001; 82043; 82570; 82607; 82746; 83036; 84443; 85025

== ENCOUNTER 2024-11-26 14:49 | Outpatient (AMB) | payer OTHER, SELFPAY ==
--- NOTE | 2024-11-26 14:58 | MHC.PC.OV ---
Vital Signs 11/26/24 14:59 Height 5 ft 5 in Weight 190 lb 8 oz BMI 31.7 BP 110/72 Blood Pressure Location Rt brachial Position Sitting Respiration 12 Pulse 69 Pulse Source Pulse Oximeter Pulse Oximetry (%) 96 Oxygen Delivery Method Room Air Intake Visit Reasons: fu bloodwork/medications Intake Note: Follow up medication and lab results. 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 Allergies No Known Allergies (No Known Allergies*) Allergy (Verified 11/26/24 14:58) Medication List - Last Reconciled 11/26/24 by Gabby Mathew PA-C aspirin (Ecotrin Low Strength) 81 mg PO DAILY atorvastatin 10 mg PO BEDTIME blood sugar diagnostic (FreeStyle Lite Strips) Use once daily As directed to check blood glucose blood-glucose meter (FreeStyle Lite Meter kit) Use daily As directed to check blood sugars celecoxib 200 mg PO DAILY PRN dulaglutide (Trulicity) 0.75 mg (0.5 mL) subcut QWEEK lancets (FreeStyle Lancets) use once daily as directed to check blood glucose levocetirizine (Xyzal) 5 mg PO DAILY lisinopril 10 mg PO DAILY mecobalamin (vitamin B12) (B12 Active) 1,000 mcg PO DAILY Tobacco use date assessed: 11/26/24 Dental Screening Dental Screen Date: 09/25/24 HPI fu bloodwork/medications HPI Details Pt is a 54 y/o female who presents today for a follow up. She has a history of hyperlipidemia, newly diagnosed diabetes and Lyme disease. CV: bp today is 110/72. On lisinopril 10 mg. She was recently started on atorvastatin and is tolerating this well. Cholesterol significantly improved. Endo: Her most recent A1c was 5.8. This is down from the 6.5. She is currently on Trulicity 0.75 mg weekly. She is wondering if we can increase the dose to see if it will help with any weight loss. Does not tolerate metformin as it causes significant GI discomfort. Uro: Recent hematuria. She has scans ordered with Urology. Neuro: In the past she was on amitriptyline for headaches and sleep. Wondering if she can try that again as she does get frequent headaches. We did review her MRI and she does have an appointment with Neurology but not for a couple of more months. 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 She does continue to smoke. No family history of lung cancer. Mammo: UTD Bone Density: dexa- osteopenia 2023 Overdue for colonoscopy- was referred [facility] Medical History (Updated 11/26/24 @ 15:30 by Gabby Mathew PA-C) Lyme disease HTN (hypertension) Ganglion cyst Pilonidal cyst Endometrial polyp Carpal tunnel syndrome Surgical History History of carpal tunnel surgery Hx of dilation and curettage H/O section Family History Mother Hypertension High cholesterol Father Hypertension Social History Housing: House Alcohol intake: never Patient Tobacco Use Status: Current everyday Tobacco user Cigarettes Per Day: 5 Years Smoked: 25 e-Cigarette/Vaping Use: Never Used Second Hand Smoke Exposure: No service: No Current occupational status: employed 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 Current occupational exposures/hazards: No Cognitive needs: No Hearing needs: No Vision needs: No Questionnaire Thrive Questionnaire Date Thrive assessed: 06/22/24 I am a: Patient What is your living situation today?: I have a steady place to live Within the past 12 months, did the food you bought not last and you didn't have the money to get more?: Never true Within the past 12 months, did you worry whether your food would run out before you got money to buy more?: Never true Do you have trouble paying for medicines?: No Do you have trouble getting transportation to medical appointments?: No Do you have trouble paying your heating and electricity bill?: No Do you have trouble taking care of your child, family member or friend?: No Do you have trouble with day-to-day activities such as bathing, preparing meals, shopping, managing finances, etc.?: No Are you currently unemployed and looking for a job?: No Are you interested in more education?: No Please select the resources that you would like help with: None Currently or been in a relationship where the following occur: No concerns reported THRIVE Score: 0 Physical exam (Primary Care) Vital Signs: Last Vital Signs Pulse 69 11/26/24 14:59 Resp 12 11/26/24 14:59 BP 110/72 11/26/24 14:59 Pulse Ox 96 11/26/24 14:59 Oxygen Delivery Method Room Air 11/26/24 14:59 BMI result Body Mass Index 31.7 Tobacco/Smoking Status: Tobacco use Status Tobacco use date assessed 11/26/24 11/26/24 15:02 Patient Tobacco Use Status Current everyday Tobacco 11/26/24 15:02 e-Cigarette/Vaping Use Never Used 11/26/24 15:02 Thrive Assessment: Date of Thrive Assessment Date Thrive assessed 06/22/24 11/26/24 15:02 Currently or been in a relationship where the following occur: No concerns reported Const Orientation/consciousness: patient oriented x3 HENMT Ears: hearing grossly normal bilaterally Neck Thyroid: Thyroid normal Lymphatic: no lymphadenopathy noted Resp Auscultation: clear to auscultation bilaterally Cardio Rate: regular rate Rhythm: regular rhythm Heart sounds: S1 normal heart sound present and S2 normal heart sound present GI Inspection: Yes normal to inspection Palpation (GI): Soft to palpation and Other GI palpation findings present (nontender, no cva tenderness) Auscultation: normoactive bowel sounds Rectal Exam - Female: deferred Skin General skin exam: no rashes or lesions noted Neuro General: patient oriented x3, gait normal and no focal motor deficits Coding Level of Care Code Est Pt Level 4 (57859) Complex EM visit Add On G2211 Diagnoses Dyslipidemia E78.5 HTN (hypertension) I10 Controlled type 2 diabetes mellitus E11.9 Persistent headaches R51.9 Assessment & Plan Assessment & Plan (1) Dyslipidemia: Code(s): E78.5 - Hyperlipidemia, unspecified Category: Medical Plan: Better controlled. Continue current regimen (2) HTN (hypertension): Code(s): I10 - Essential (primary) hypertension Category: Medical Plan: WNL continue current regimen (3) Controlled type 2 diabetes mellitus: Code(s): E11.9 - Type 2 diabetes mellitus without complications Category: Medical Plan: Increased trulicity to 1.5 mg weekly. We will monitor recheck labs in 3 months (4) Persistent headaches: Code(s): R51.9 - Headache, unspecified Category: Medical Plan: Start amitriptyline Orders: Orders Complete Blood Count Auto Diff 11/26/24 E11.9 - Type 2 diabetes mellitus without complications, E78.5 - Hyperlipidemia, unspecified, I10 - Essential (primary) hypertension, R51.9 - Headache, unspecified Hemoglobin A1c 11/26/24 E11.9 - Type 2 diabetes mellitus without complications, E78.5 - Hyperlipidemia, unspecified, I10 - Essential (primary) hypertension, R51.9 - Headache, unspecified, R73.01 - Impaired fasting glucose UA CC w/rflx Micro + Cult 11/26/24 E11.9 - Type 2 diabetes mellitus without complications, E78.5 - Hyperlipidemia, unspecified, I10 - Essential (primary) hypertension, R30.0 - Dysuria, R51.9 - Headache, unspecified Comprehensive [place]. Panel Fast 11/26/24 E11.9 - Type 2 diabetes mellitus without complications, E78.5 - Hyperlipidemia, unspecified, I10 - Essential (primary) hypertension, R51.9 - Headache, unspecified Lipid Panel 11/26/24 E11.9 - Type 2 diabetes mellitus without complications, E78.5 - Hyperlipidemia, unspecified, I10 - Essential (primary) hypertension, R51.9 - Headache, unspecified TSH reflex Free T4 11/26/24 E11.9 - Type 2 diabetes mellitus without complications, E78.5 - Hyperlipidemia, unspecified, I10 - Essential (primary) hypertension, R51.9 - Headache, unspecified Medications: New dulaglutide (Trulicity) 1.5 mg (0.5 mL) subcut QWEEK 2 mL 3RF amitriptyline 10 mg PO BEDTIME 90 tabs 0RF
[2024-11-26 14:59] VITALS: BP 110/72; PULSE 69; RESP 12; O2SAT 96; BMI 31.7
== END 2024-11-26 15:34 | disposition home or self-care (01) ==
LOC: HO.HMCFM 14:50
PROVIDERS: PCP Physician Assistant; Visit Provider Physician Assistant
DX: E78.5 Hyperlipidemia, unspecified (principal); I10 Essential (primary) hypertension; E11.9 Type 2 diabetes mellitus without complications; R51.9 Headache, unspecified

== ENCOUNTER 2024-12-04 12:41 | Outpatient (AMB) | payer OTHER, SELFPAY ==
--- NOTE | 2024-12-04 12:47 | A.OFFVIS_ITS ---
Vital Signs 3 12/04/24 12:50 Height 5 ft 5 in Weight 187 lb BMI 31.1 BP 103/56 L Blood Pressure Location Lt brachial Position Sitting Pulse 80 Pulse Oximetry (%) 98 Oxygen Delivery Method Room Air Intake Visit Reasons: [place] Screening Intake Note: Patient new consult for 1st pre Colonoscopy screening. Patient denies any GI issues. 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 She is referred by Gabby Mathew. PMX Smoker Aortic stenosis Hypertension High cholesterol Diabetes Persistent daily headaches Carpal tunnel syndrome * SURGICAL HISTORY Carpal tunnel release - bilateral D&C section Pilonidal cyst gangloin cyst * ALLERGIES: NKDA * [facility] LABS: Laboratory Tests 11/18/24 06:12 WBC 8.6 Hgb 13.9 Hct 41.7 Plt Count 286 Estimated GFR > 60 Total Bilirubin 0.7 AST 19 ALT 21 Alkaline Phosphatase 54 TSH 1.09 TODAY'S VISIT This is her first colonoscopy. No bowel or upper GI problems. No anes or sed problems except vomiting after procedure. Her is well controlled and she denies any respiratory problems but she smokes. No ID problems. There is no known FHX of crc or polyps. [facility] Medical History (Updated 12/04/24 @ 12:48 by DAYANNA Phipps) Bacterial sinusitis Persistent headaches Urinary tract infection Encounter for well woman exam with routine gynecological exam Lyme disease HTN (hypertension) Ganglion cyst Pilonidal cyst Endometrial polyp Carpal tunnel syndrome Surgical History History of carpal tunnel surgery Hx of dilation and curettage H/O section Family History Mother Hypertension High cholesterol Father Hypertension Social History Housing: House Alcohol intake: never Patient Tobacco Use Status: Current everyday Tobacco user Cigarettes Per Day: 5 Years Smoked: 25 e-Cigarette/Vaping Use: Never Used Second Hand Smoke Exposure: No service: No Current occupational status: employed 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 Current occupational exposures/hazards: No Cognitive needs: No Hearing needs: No Vision needs: No Review of Systems Const Denies fatigue, Denies fever(s), Denies night sweats, Denies poor appetite and Denies weight loss ENT Reports Normal hearing present, Denies dental pain, Denies dysphagia, Denies hearing loss, Denies mouth pain, Denies odynophagia, Denies throat swelling, Denies tongue swelling and Reports other (Dentition adequate) Card Reports no additional complaints Resp Reports no additional complaints GI Details: Denies abdominal pain, Denies melena, Denies bloating, Denies hematochezia, Denies constipation, Denies GI cramping, Denies dysphagia, Denies excessive flatus, Denies early satiety, Denies heartburn, Denies diarrhea, Denies nausea, Denies odynophagia, Denies vomiting and Denies hematemesis Skin/Breast Denies pruritus, Denies lesions, Denies rash and Denies jaundice Neuro Reports Normal hearing present and Denies Abnormal speech present Endo Denies fatigue Aller/Immun Denies throat swelling and Denies tongue swelling Physical Exam Const General: cooperative, no acute distress, well developed and well groomed Nutritional Appearance: well nourished, obese and overweight Orientation/consciousness: oriented to person, oriented to place and oriented to time Limitations: No language barrier, ambulation with cane, ambulation with walker and wheelchair HEENT Head: Yes normocephalic and Yes atraumatic Eyes General: appearance normal, both eyes and all related structures Pupils: Equal, round and reactive pupils present Neck Neck: Yes normal visual inspection and Yes no lymphadenopathy Thyroid: Thyroid normal Resp Effort & Inspection: normal respiratory effort and able to speak in complete sentences Auscultation: clear to auscultation bilaterally Cardio Rate: regular rate Rhythm: regular rhythm Heart sounds: Murmur heart sound present systolic (late soft aortic murmur with no carotid radiation) Peripheral pulses: radial pulses present and posterior tibial pulses present GI Inspection: No distended, No Abdominal panniculus present and Yes obesity Palpation (GI): Soft to palpation, nontender, no guarding, not rigid and No hepatosplenomegaly present Percussion: Yes normal to percussion Auscultation: normal bowel sounds Rectal Exam - Female: deferred Abdomen image: 2 1. surgical scar Skin General skin exam: no rashes or lesions noted, turgor normal, skin not dry, no jaundice, No spider nevi and no striae Rashes: no rashes Nails: normal Neuro General: oriented to person, oriented to place and oriented to time Cranial nerves: Yes Equal, round and reactive pupils present and Yes Normal hearing present Speech: No Abnormal speech present Extrem General: Yes normal to inspection, No clubbing, No cyanosis and No edema Psych Appearance: grossly normal and well kempt Mental Status: mental status grossly normal Speech and movement: Normal speech and movement present Affect: normal affect Attitude: cooperative Thought process: Normal thought process present and not confabulating Thought content: Normal thought content present Insight: Good insight present (Psych) Judgement: Good judgement present (Psych) Assessment & Plan Assessment & Plan (1) Pre-op examination: Code(s): Z01.818 - Encounter for other preprocedural examination Category: Medical (2) Nicotine dependence: Code(s): F17.200 - Nicotine dependence, unspecified, uncomplicated Category: Medical (3) Aortic stenosis: Code(s): I35.0 - Nonrheumatic aortic (valve) stenosis Category: Medical Plan This is her first colonoscopy. No bowel or upper GI problems. No anes or sed problems except vomiting after procedure. Her is well controlled and she denies any respiratory problems but she smokes. No ID problems. There is no known FHX of crc or polyps. Orders: Orders 2 Colonoscopy - GI Use Only Today Z01.818 - Encounter for other preprocedural examination Medications: New 2 sodium,potassium,mag sulfates 17.5-3.13-1.6 gram (Suprep Bowel Prep Kit) 480 mL orally; FOR COLONOSCOPY PREP 354 mL 0RF Coding Level of Care Code New Pt Level 3 (14764) Diagnoses Pre-op examination Z01.818 Nicotine dependence F17.200 Aortic stenosis I35.0
[2024-12-04 12:50] VITALS: BP 103/56; PULSE 80; O2SAT 98; BMI 31.1
== END 2024-12-04 13:12 | disposition home or self-care (01) ==
LOC: HO.HGI 12:41
PROVIDERS: Visit Provider Nurse Practitioner
DX: Z01.818 Encounter for other preprocedural examination (principal); Z12.11 Encounter for screening for malignant neoplasm of colon; F17.200 Nicotine dependence, unspecified, uncomplicated; I35.0 Nonrheumatic aortic (valve) stenosis
CPT/HCPCS: 99203

== ENCOUNTER 2025-02-03 15:05 | Outpatient (AMB) | payer OTHER, SELFPAY ==
--- NOTE | 2025-02-03 15:10 | MHC.OFFVIS ---
Intake Visit Reasons: Right knee pain Intake Note: Love is a 54 year old female who presents with complaints of right knee pain. She describes her pain as achy in nature. She has tried Tylenol and Celebrex which gave her mild relief. She has had cortisone injections in the past which gave her fairly good relief. She wishes to hold off on surgery if at all possible. Allergies No Known Allergies (No Known Allergies*) Allergy (Verified 12/04/24 12:48) Medication List - Last Reconciled 02/03/25 by Victor Hugo Abrams MD amitriptyline 20 mg (2 x 10 mg) PO BEDTIME aspirin (Ecotrin Low Strength) 81 mg PO DAILY atorvastatin 10 mg PO BEDTIME blood sugar diagnostic (FreeStyle Lite Strips) Use once daily As directed to check blood glucose blood-glucose meter (FreeStyle Lite Meter kit) Use daily As directed to check blood sugars celecoxib 200 mg PO DAILY PRN dulaglutide (Trulicity) 0.75 mg (0.5 mL) subcut QWEEK dulaglutide (Trulicity) 1.5 mg (0.5 mL) subcut QWEEK lancets (FreeStyle Lancets) use once daily as directed to check blood glucose levocetirizine (Xyzal) 5 mg PO DAILY lisinopril 10 mg PO DAILY mecobalamin (vitamin B12) (B12 Active) 1,000 mcg PO DAILY sodium,potassium,mag sulfates 17.5-3.13-1.6 gram (Suprep Bowel Prep Kit) 480 mL orally; FOR COLONOSCOPY [facility]P [facility] Medical History (Updated 12/04/24 @ 12:48 by DAYANNA Phipps) Bacterial sinusitis Persistent headaches Urinary tract infection Encounter for well woman exam with routine gynecological exam Lyme disease HTN (hypertension) Ganglion cyst Pilonidal cyst Endometrial polyp Carpal tunnel syndrome Surgical History History of carpal tunnel surgery Hx of dilation and curettage H/O section Family History Mother Hypertension High cholesterol Father Hypertension Social History Housing: House Alcohol intake: never Patient Tobacco Use Status: Current everyday Tobacco user Cigarettes Per Day: 5 Years Smoked: 25 e-Cigarette/Vaping Use: Never Used Second Hand Smoke Exposure: No service: No Current occupational status: employed 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 Current occupational exposures/hazards: No Cognitive needs: No Hearing needs: No Vision needs: No Physical Exam Const Other: Well-nourished well-developed very friendly female awake alert and oriented x3 in no acute distress Extrem Other: Right knee examination shows a minimal effusion, palpable crepitus with range of motion, pain with range of motion, no instability Office Procedures AMB Joint Injection/Aspiration Joint Injection/Aspiration Primary Site: right knee Prep: site was prepped using aseptic technique Injected: 40 mg of, DepoMedrol, with 4 mL of and 1% plain lidocaine Procedure: The patient tolerated the procedure well Coding - Large joint Procedure code (CPT) selection complete Results Reviewed Results Reviewed: X-rays of the patient's right knee taken previously show joint space narrowing, subchondral sclerosis, no acute bony abnormalities Assessment & Plan Assessment & Plan (1) Arthritis of right knee: Code(s): M17.11 - Unilateral primary osteoarthritis, right knee Category: Medical (2) Right knee pain: Code(s): M25.561 - Pain in right knee Category: Medical Qualifiers: Chronicity: chronic Qualified Code(s): M25.561 - Pain in right knee; G89.29 - Other chronic pain Plan Ms. Douglass presents with right knee pain due to degenerative joint disease. The risks and benefits of a right knee cortisone injection were discussed at length with the patient. The patient wished to proceed. She tolerated the injection well. She will continue with her home exercise program. She will contact me prior to her follow-up appointment in 3 months should any questions or concerns arise. Feel free to call me at any time should questions regarding her orthopedic management arise. I spent 22 minutes in reviewing the patient's records and imaging studies, seeing the patient and documenting in the medical record. Orders: Orders AMB Joint Injection/Aspiration 02/03/25 M17.11 - Unilateral primary osteoarthritis, right knee Coding Level of Care Code Est Pt Level 3 (10314) Complex EM visit Add On G2211 Diagnoses Arthritis of right knee M17.11 Chronic pain of right knee M25.561; G89.29 Chronicity: chronic CPT Codes Coding - Large joint: 40140 - Large joint ([id number])
--- OUTSIDE RECORDS SUMMARY | 2025-02-03 19:31 | XMS_ITS | Data Portability ---
Author Organization DANYELLE Johnson s, [facility] Address [address] [place] [address] Assessment No assessment recorded. Plan of Treatment Reminders Order Date Submit Date Provider Last Modified By Organization Details Last Modified Time Details Appointments None recorded. Lab urinalysis, dipstick 2022 023 [place] [address], [address] [place] [address], [address], 12:49:25 test, urine 2022 023 [place] [address] 20995_[facility], [address] [place] [address], [address], 12:49:25 Referral None recorded. Procedures None recorded. Surgeries None recorded. Imaging None recorded. Medication Orders cyclobenzap rine 10 mg tablet 2022 023 [facility]/Pharmacy #[id number], [address] [place], [address], 12:49:27 naproxen 500 mg tablet [address]/Pharmacy #[id number], [address] [place], [address], 12:49:27 Patient TargetsNo targets recorded. Patient Instructions Encounter Date Encounter Id Patient Instructions Last Modified By Organization Details Last Modified Time 08/31/2022 [id number] back pain: care instructions [place] [address] Not available 08/31/2022 12:49:25 Reason for Referral None Reported. Results Created Date Observation Date Name Description Value Unit Range Abnormal Flag Note LastModifiedBy Organization Detail LastModifiedTime 09/01/19 23 08/31/2022 pregn catarino test, urine Unknown Analyte Normal = Negati ve Not Available 2099eulogio franklin [address], [place], [address], 08/31/2022 11:51:08 09/01/19 23 08/31/2022 pregn catarino test, urine Unknown Analyte negati ve Not Available 2099eulogio franklin [address], [place], [address], 08/31/2022 11:51:08 09/01/19 23 08/31/2022 urina lysis , dipst ick Unknown Analyte Normal = light yellow Not Available 2099eulogio franklin [address], [place], [address], 08/31/2022 11:51:03 09/01/19 23 08/31/2022 urina lysis , dipst ick Unknown Analyte Yellow Not Available [address], [place], [address], 08/31/2022 11:51:03 09/01/19 23 08/31/2022 urina lysis , dipst ick Unknown Analyte Normal = clear Not Available 2099eulogio franklin [address], [place], [address], 08/31/2022 11:51:03 09/01/19 23 08/31/2022 urina lysis , dipst ick Unknown Analyte Clear Not Available [address], [place], [address], 08/31/2022 11:51:03 09/01/19 23 08/31/2022 urina lysis , dipst ick Unknown Analyte Normal = negati ve Not Available [facility], [place], [address], 08/31/2022 11:51:03 09/01/1908/31/2022 urina lysis , dipst ick Unknown Analyte Normal = Negati ve Not Available eulogio franklin [address], [place], [address], 08/31/2022 11:51:03 09/01/19 23 08/31/2022 urina lysis , dipst ick Unknown Analyte Normal = Negati ve Not Available eulogio franklin [address], [place], [address], 08/31/2022 11:51:03 09/01/19 23 08/31/2022 urina lysis , dipst ick Unknown Analyte Negati ve Not Available eulogio [address], [place], [address], 08/31/2022 11:51:03 09/01/1908/31/2022 urina lysis , dipst ick Unknown Analyte Negati ve Not Available eulogio franklin [address], [place], [address], 08/31/2022 11:51:03 09/01/1908/31/2022 urina lysis , dipst ick Unknown Analyte Negati ve Not Available [facility] [address], [place], [address], 08/31/2022 11:51:03 09/01/19 23 08/31/2022 urina lysis , dipst ick Unknown Analyte Normal = 1.010, 1.015, 1.020 Not Available eulogio franklin [address], [place], [address], 08/31/2022 11:51:03 09/01/19 23 08/31/2022 urina lysis , dipst ick Unknown Analyte 1.020 Not Available ronnie [address], [place], [address], 08/31/2022 11:51:03 09/01/19 23 08/31/2022 urina lysis , dipst ick Unknown Analyte Normal = Negati ve Not Available eulogio [address], [place], [address], 08/31/2022 11:51:03 09/01/19 23 08/31/2022 urina lysis , dipst ick Unknown Analyte Modera te Not Available eulogio franklin [address], [place], [address], 08/31/2022 11:51:03 09/01/19 23 08/31/2022 urina lysis , dipst ick Unknown Analyte Normal = 6.5, 7.0, 7.5, 8.0 Not Available eulogio [address], [place], [place], [address], 08/31/2022 11:51:03 09/01/19 23 08/31/2022 urina lysis , dipst ick Unknown Analyte 6.5 Not Available [address], [place], [place], [address], 08/31/2022 11:51:03 09/01/19 23 08/31/2022 urina lysis , dipst ick Unknown Analyte Normal = Negati ve Not Available eulogio [address], [place], [place], [address], 08/31/2022 11:51:03 09/01/19 23 08/31/2022 urina lysis , dipst ick Unknown Analyte Negati ve Not Available eulogio [address], [place], [address], 08/31/2022 11:51:03 09/01/19 23 08/31/2022 urina lysis , dipst ick Unknown Analyte Normal = 0.2, 1.0 Not Available eulogio franklin [address], [place], [address], 08/31/2022 11:51:03 09/01/19 23 08/31/2022 urina lysis , dipst ick Unknown Analyte 0.2 E.U./d L Not Available [facility] [address], [place], [address], 08/31/2022 11:51:03 09/01/19 23 08/31/2022 urina lysis , dipst ick Unknown Analyte Normal = Negati ve Not Available [address], [place], [address], 08/31/2022 11:51:03 09/01/19 23 08/31/2022 urina lysis , dipst ick Unknown Analyte Normal = Negati ve Not Available [facility] [address], [place], [address], 08/31/2022 11:51:03 09/01/19 23 08/31/2022 urina lysis , dipst ick Unknown Analyte Negati ve Not Available [address], [place], [address], 08/31/2022 11:51:03 09/01/19 23 08/31/2022 urina lysis , dipst ick Unknown Analyte Negati ve Not Available [address] [place], [address], 08/31/2022 11:51:03 Result Notes None recorded. Problems [...] Last Updated DateTime 167.64 cm 34.1 kg/m2 64796.9 9 g 8 19 /min 99 % [...] 08/31/2022 Have You Recently Traveled Abroad? No [email or web address] Information not available 08/31/2022 Sex: Unknown Functional Status Question Answer Note LastModified by Organizat ion Details LastModified Time Do you use any illicit or recreational drugs? No [email or web address] Information not available 08/31/2022 Do you or have you ever used any other forms of tobacco or nicotine? No [email or web address] Information not available 08/31/2022 What is your level of alcohol consumption? None [email or web address] Information not available 08/31/2022 Mental Status None [...] Diagnosis SNOMED-CT Code Diagnosis ICD10 Code Diagnosis IMO Codes Diagnosis Note [id number] [facility] [address] [place] [address] 12/25/2014 09:34:50 12/25/2014 10:29:33 [id number] [facility] [address] [place] [address] 06/19/2015 09:43:53 06/19/2015 10:30:20 [id number] Jennifer Hewitt MD [facility] [address] [place] [address] 08/31/2022 09:45:19 08/31/2022 12:54:43 Low back pain [id number] M54.50 Please follow up with PCP or [...] Denise Member ID Guarantor Name 08/31/2022 1 [facility] [id number] Love Douglass [id number] Love Douglass Notes Date Note Type Note [...] to affected body part. Jennifer Hewitt MD [address] [place] [address] [place], [address], [place] - [facility] 09/05/2022 08:23:21 OBGyn Episode No OBEpisode recorded.
== END 2025-02-03 15:28 | disposition home or self-care (01) ==
LOC: HO.HOS 15:06
PROVIDERS: PCP Physician Assistant; Visit Provider Orthopaedic Surgery
DX: M17.11 Unilateral primary osteoarthritis, right knee (principal); M25.561 Pain in right knee; G89.29 Other chronic pain
CPT/HCPCS: 20610; 99213

== ENCOUNTER → 2025-02-03 15:05 | Outpatient (BNVA) | payer OTHER, SELFPAY | PROVIDERS: PCP Physician Assistant; Visit Provider Orthopaedic Surgery | DX: M25.561 Pain in right knee (principal); G89.29 Other chronic pain; M17.11 Unilateral primary osteoarthritis, right knee | CPT/HCPCS: 20610; J1010; J2003 ==

== ENCOUNTER 2025-02-19 05:57 | Outpatient (REF) | payer OTHER, SELFPAY ==
--- OUTSIDE RECORDS SUMMARY | 2025-02-19 05:59 | XMS_ITS | Data Portability ---
Author Organization DANYELLE Johnson s, [address] Address [address] [place] [address] Assessment No assessment recorded. Plan of Treatment Reminders Order Date Submit Date Provider Last Modified By Organization Details Last Modified Time Details Appointments None recorded. Lab urinalysis, dipstick 2022 023 [place] [address] 20[address], [address] [place] [address], [address], 12:49:25 test, urine 2022 023 [place] [address] 20[address], [address] [place] [address], [address], 12:49:25 Referral None recorded. Procedures None recorded. Surgeries None recorded. Imaging None recorded. Medication Orders cyclobenzap rine 10 mg tablet 2022 023 [facility]/Pharmacy #[id number], [address] [place], [address], 3 12:49:27 naproxen 500 mg tablet [address]/Pharmacy #2339, [address] [place], [address], 12:49:27 Patient TargetsNo targets recorded. Patient Instructions Encounter Date Encounter Id Patient Instructions Last Modified By Organization Details Last Modified Time 08/31/2022 [id number] back pain: care instructions [place] [address] Not available 08/31/2022 12:49:25 Reason for Referral None Reported. Results Created Date Observation Date Name Description Value Unit Range Abnormal Flag Note LastModifiedBy Organization Detail LastModifiedTime 09/01/19 23 08/31/2022 pregn catarino test, urine Unknown Analyte Normal = Negati ve Not Available 2099eulogio franklin [address], [place], [address], 08/31/2022 11:51:08 09/01/19 23 08/31/2022 pregn catarino test, urine Unknown Analyte negati ve Not Available 2099eulogio franklin [address], [place], [address], 08/31/2022 11:51:08 09/01/19 23 08/31/2022 urina lysis , dipst ick Unknown Analyte Normal = light yellow Not Available [address]99eulogio franklin [address], [place], [address], 08/31/2022 11:51:03 09/01/19 23 08/31/2022 urina lysis , dipst ick Unknown Analyte Yellow Not Available [address], [place], [address], 08/31/2022 11:51:03 09/01/19 23 08/31/2022 urina lysis , dipst ick Unknown Analyte Normal = clear Not Available 2099eulogio franklin [address], [place], [address], 08/31/2022 11:51:03 09/01/19 23 08/31/2022 urina lysis , dipst ick Unknown Analyte Clear Not Available [address], [place], [address], 08/31/2022 11:51:03 09/01/19 23 08/31/2022 urina lysis , dipst ick Unknown Analyte Normal = negati ve Not Available [facility], [place], [address], 08/31/2022 11:51:03 09/01/1908/31/2022 urina lysis , dipst ick Unknown Analyte Normal = Negati ve Not Available eulogio franklin [address], [place], [address], 08/31/2022 11:51:03 09/01/19 23 08/31/2022 urina lysis , dipst ick Unknown Analyte Normal = Negati ve Not Available eulogio franklin [address], [place], [address], 08/31/2022 11:51:03 09/01/19 23 08/31/2022 urina lysis , dipst ick Unknown Analyte Negati ve Not Available eulogio [address], [place], [address], 08/31/2022 11:51:03 09/01/1908/31/2022 urina lysis , dipst ick Unknown Analyte Negati ve Not Available eulogio franklin [address], [place], [address], 08/31/2022 11:51:03 09/01/1908/31/2022 urina lysis , dipst ick Unknown Analyte Negati ve Not Available [facility] [address], [place], [address], 08/31/2022 11:51:03 09/01/19 23 08/31/2022 urina lysis , dipst ick Unknown Analyte Normal = 1.010, 1.015, 1.020 Not Available eulogio franklin [address], [place], [address], 08/31/2022 11:51:03 09/01/19 23 08/31/2022 urina lysis , dipst ick Unknown Analyte 1.020 Not Available ronnie [address], [place], [address], 08/31/2022 11:51:03 09/01/19 23 08/31/2022 urina lysis , dipst ick Unknown Analyte Normal = Negati ve Not Available eulogio [address], [place], [address], 08/31/2022 11:51:03 09/01/19 23 08/31/2022 urina lysis , dipst ick Unknown Analyte Modera te Not Available eulogio franklin [address], [place], [address], 08/31/2022 11:51:03 09/01/19 23 08/31/2022 urina lysis , dipst ick Unknown Analyte Normal = 6.5, 7.0, 7.5, 8.0 Not Available eulogio [address], [place], [place], [address], 08/31/2022 11:51:03 09/01/19 23 08/31/2022 urina lysis , dipst ick Unknown Analyte 6.5 Not Available [address], [place], [place], [address], 08/31/2022 11:51:03 09/01/19 23 08/31/2022 urina lysis , dipst ick Unknown Analyte Normal = Negati ve Not Available eulogio [address], [place], [place], [address], 08/31/2022 11:51:03 09/01/19 23 08/31/2022 urina lysis , dipst ick Unknown Analyte Negati ve Not Available eulogio [address], [place], [address], 08/31/2022 11:51:03 09/01/19 23 08/31/2022 urina lysis , dipst ick Unknown Analyte Normal = 0.2, 1.0 Not Available eulogio franklin [address], [place], [address], 08/31/2022 11:51:03 09/01/19 23 08/31/2022 urina lysis , dipst ick Unknown Analyte 0.2 E.U./d L Not Available [facility] [address], [place], [address], 08/31/2022 11:51:03 09/01/19 23 08/31/2022 urina lysis , dipst ick Unknown Analyte Normal = Negati ve Not Available [address], [place], [address], 08/31/2022 11:51:03 09/01/19 23 08/31/2022 urina lysis , dipst ick Unknown Analyte Normal = Negati ve Not Available [facility] [address], [place], [address], 08/31/2022 11:51:03 09/01/19 23 08/31/2022 urina lysis , dipst ick Unknown Analyte Negati ve Not Available [address], [place], [address], 08/31/2022 11:51:03 09/01/19 23 08/31/2022 urina lysis , dipst ick Unknown Analyte Negati ve Not Available [address] [place], [address], 08/31/2022 11:51:03 Result Notes None recorded. Problems [...] Last Updated DateTime 167.64 cm 34.1 kg/m2 38404.9 9 g 8 19 /min 99 % 99 % 65 /min 98 [degF] 159/81 mm[Hg] SOPHIA BASSETT - [facility] 11:52:05 Social History Question Answer Notes LastModified by Organizat ion Details LastModified Time Tobacco Smoking Status Current Every Day Smoker SOPHIA barrow [place] [facility] 08/31/2022 11:49:37 How Much Tobacco Do You Smoke? 0.25 PPD [email or web address] Information not available 08/31/2022 Have You Recently Traveled Abroad? No [email or web address] Information not available 08/31/2022 Sex: Unknown Functional Status Question Answer Note LastModified by Organizat ion Details LastModified Time Do you use any illicit or recreational drugs? No [email or web address] Information not available 08/31/2022 Do you or have you ever used any other forms of tobacco or nicotine? No [email or web address] Information not available 08/31/2022 What is your level of alcohol consumption? None [email or web address] Information not available 08/31/2022 Mental Status None recorded. Family History Relationship Description Onset Age of this Age Resolved Age Notes LastModified by Organization Details LastModified Time Father No current problems or disability [email or web address] Not available 08/31 11:49:15 Mother No current problems or disability [email or web address] Not available 08/31 11:49:15 Medical History No medical history recorded. Gynecological History Statement/Question Response Date of LMP Obstetrics History GPAL:G 0 P 0 0 0 0 Past Encounters Encounter ID Performer Location Encounter Start Date Encounter Closed Date Diagnosis/Indication Diagnosis SNOMED-CT Code Diagnosis ICD10 Code Diagnosis IMO Codes Diagnosis Note [id number] [facility] [address] [place] [address] 12/25/2014 09:34:50 12/25/2014 10:29:33 [id number] [facility] [address] [place] [address] 06/19/2015 09:43:53 06/19/2015 10:30:20 [id number] Jennifer Hewitt MD [address] [address] [place] [address] 08/31/2022 09:45:19 08/31/2022 12:54:43 Low back pain [id number] M54.50 Please follow up with PCP or [...] Denise Member ID Guarantor Name 08/31/2022 1 [facility] [id number] Love Douglass [id number] Love Douglass Notes Date Note Type Note [...] to affected body part. Jennifer Hewitt MD [address] [place] [address] [place], [address], [place] - [facility] 09/05/2022 08:23:21 OBGyn Episode No OBEpisode recorded.
[2025-02-19 06:25] LABS: MANUAL DIFF FLAG NO
[2025-02-19 07:14] LABS: Hematocrit 43.2 % (37.0-47.0); Hemoglobin 14.2 g/dl (12.0-16.0); Imm Gran Abs Auto 0.03 X10*3/uL (0.00-0.03); Imm Gran Pct Auto 0.3 % (0.0-0.4); Lymphocytes Absolute Auto 3.2 X10*3/uL (1.2-4.9); Mean Corpuscular HGB Conc 32.9 g/dl (31.0-35.0); Mean Corpuscular Hemoglobin 29.8 pg (27.0-33.0); Mean Corpuscular Volume 90.6 fL (80.0-98.0); NRBC Abs Auto 0.000 X10*3/uL (0.0-0.012); NRBC Pct Auto 0.0 /100WBC (0.0-0.2); Platelet Count 283 X10*3/uL (160-400); Red Blood Count 4.77 X10*6/uL (4.20-5.50); White Blood Count 9.9 X10*3/uL (4.8-10.8)
[2025-02-19 07:33] LABS: Alanine Aminotransferase 27 U/L (0-31); Albumin Level 4.6 g/dL (3.5-5.0); Alkaline Phosphatase 56 U/L (39-117); Anion Gap 13 (12-20); Aspartate Amino Transferase 24 U/L (5-31); Blood Urea Nitrogen 15 mg/dL (9-16); Calcium 9.6 mg/dL (8.4-10.2); Carbon Dioxide 25 mmol/L (22-29); Chloride 107 mmol/L (96-108); Cholesterol 158 mg/dL (<200); Estimated Glomerular Filt Rate > 60; HDL Cholesterol 48 mg/dL (>40); Potassium 4.5 mmol/L (3.3-5.1); Sodium 140 mmol/L (135-145); Total Protein 6.8 g/dL (6.5-8.0); Triglycerides 109 mg/dL (<150)
[2025-02-19 07:34] LABS: Appearance Urine Clear; Glucose Urine UA Negative (Negative); PH 6.5 (5.0-9.0); Specific Gravity - Urine 1.020 (1.005-1.025); UMIC TRIGGER UACC YES
== END 2025-02-19 05:58 | disposition home or self-care (01) ==
LOC: HO.LAB 05:57
PROVIDERS: Urology; PCP Physician Assistant; Visit Provider Physician Assistant
DX: E11.9 Type 2 diabetes mellitus without complications (principal); I10 Essential (primary) hypertension; E78.5 Hyperlipidemia, unspecified; R51.9 Headache, unspecified; R30.0 Dysuria
CPT/HCPCS: 36415; 80053; 80061; 81001; 83036; 84443; 85025

== ENCOUNTER 2025-02-26 14:58 | Outpatient (AMB) | payer OTHER, SELFPAY ==
--- NOTE | 2025-02-26 15:02 | MHC.PC.OV ---
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 Allergies No Known Allergies (No Known Allergies*) Allergy (Verified 02/26/25 15:03) Medication List - Last Reconciled 02/26/25 by Gabby Mathew PA-C amitriptyline 20 mg (2 x 10 mg) PO BEDTIME aspirin (Ecotrin Low Strength) 81 mg PO DAILY atorvastatin 10 mg PO BEDTIME blood sugar diagnostic (FreeStyle Lite Strips) Use once daily As directed to check blood glucose blood-glucose meter (FreeStyle Lite Meter kit) Use daily As directed to check blood sugars celecoxib 200 mg PO DAILY PRN lancets (FreeStyle Lancets) use once daily as directed to check blood glucose lisinopril 10 mg PO DAILY mecobalamin (vitamin B12) (B12 Active) 1,000 mcg PO DAILY sodium,potassium,mag sulfates 17.5-3.13-1.6 gram (Suprep Bowel Prep Kit) 480 mL orally; FOR COLONOSCOPY PREP tirzepatide (Mounjaro) 2.5 mg (0.5 mL) subcut QWEEK Tobacco use date assessed: 02/26/25 Dental Screening Dental Screen Date: 09/25/24 HPI med check and labs HPI Details Pt is a 54 y/o female who presents today for a follow up. She has a history of hyperlipidemia, newly diagnosed diabetes and Lyme disease. CV: bp today is 110/72. On lisinopril 10 mg. She was recently started on atorvastatin and is tolerating this well. Cholesterol significantly improved. Endo: Her most recent A1c was 5.8. This is down from the 6.5. She is currently on Trulicity 1.5 mg weekly. She has been getting some upset stomach with the increased dose of the Trulicity. Does not tolerate metformin as it causes significant GI discomfort. She has been taking it despite feeling sick. Neuro: She has been on amitriptyline 20 mg nightly which does seem to help with the headaches but not as much with the sleep. She has only had 2 headaches since starting the amitriptyline. We did review her MRI and she does have an appointment with Neurology but not for a couple of more months. 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 She does continue to smoke. No family history of lung cancer. Mammo: UTD Bone Density: dexa- osteopenia 2023 Overdue for colonoscopy- was referred and waiting to hear for appointment time [facility] Medical History (Updated 02/27/25 @ 10:32 by Gabby Mathew PA-C) Bacterial sinusitis Persistent headaches Urinary tract infection Encounter for well woman exam with routine gynecological exam Lyme disease HTN (hypertension) Ganglion cyst Pilonidal cyst Endometrial polyp Carpal tunnel syndrome Surgical History History of carpal tunnel surgery Hx of dilation and curettage H/O section Family History Mother Hypertension High cholesterol Father Hypertension Social History (Updated 02/26/25 @ 15:08 by Shasha Ovalles CMA) Housing: House Alcohol intake: never Patient Tobacco Use Status: Current everyday Tobacco user Cigarettes Per Day: 5 Years Smoked: 25 e-Cigarette/Vaping Use: Never Used Second Hand Smoke Exposure: No service: No Current occupational status: employed 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 Current occupational exposures/hazards: No Cognitive needs: No Hearing needs: No Vision needs: No Questionnaire Thrive Questionnaire Date Thrive assessed: 06/22/24 I am a: Patient What is your living situation today?: I have a steady place to live Within the past 12 months, did the food you bought not last and you didn't have the money to get more?: Never true Within the past 12 months, did you worry whether your food would run out before you got money to buy more?: Never true Do you have trouble paying for medicines?: No Do you have trouble getting transportation to medical appointments?: No Do you have trouble paying your heating and electricity bill?: No Do you have trouble taking care of your child, family member or friend?: No Do you have trouble with day-to-day activities such as bathing, preparing meals, shopping, managing finances, etc.?: No Are you currently unemployed and looking for a job?: No Are you interested in more education?: No Please select the resources that you would like help with: None Currently or been in a relationship where the following occur: No concerns reported THRIVE Score: 0 AUDIT C Alcohol Use Questionnaire (AUDIT-C) 1. How often do you have a drink containing alcohol?: Never 3. How often do you have six or more drinks on one occasion?: Never Total Score: 0 Physical exam (Primary Care) Vital Signs: Last Vital Signs Pulse 76 02/26/25 15:05 Resp 12 02/26/25 15:05 BP 122/74 02/26/25 15:05 Pulse Ox 97 02/26/25 15:05 Oxygen Delivery Method Room Air 02/26/25 15:05 BMI result Body Mass Index 32.3 Tobacco/Smoking Status: Tobacco use Status Tobacco use date assessed 02/26/25 02/26/25 15:08 Patient Tobacco Use Status Current everyday Tobacco 02/26/25 15:08 e-Cigarette/Vaping Use Never Used 02/26/25 15:08 Thrive Assessment: Date of Thrive Assessment Date Thrive assessed 06/22/24 02/26/25 15:04 Currently or been in a relationship where the following occur: No concerns reported Const Orientation/consciousness: patient oriented x3 HENMT Ears: hearing grossly normal bilaterally Neck Thyroid: Thyroid normal Lymphatic: no lymphadenopathy noted Resp Auscultation: clear to auscultation bilaterally Cardio Rate: regular rate Rhythm: regular rhythm Heart sounds: S1 normal heart sound present and S2 normal heart sound present GI Inspection: Yes normal to inspection Palpation (GI): Soft to palpation and Other GI palpation findings present (nontender, no cva tenderness) Auscultation: normoactive bowel sounds Rectal Exam - Female: deferred Skin General skin exam: no rashes or lesions noted Neuro General: patient oriented x3, gait normal and no focal motor deficits Coding Level of Care Code Complex visit Add On G2211 Diagnoses Dyslipidemia E78.5 HTN (hypertension) I10 Controlled type 2 diabetes mellitus E11.9 Persistent headaches R51.9 Insomnia G47.00 Assessment & Plan Assessment & Plan (1) Dyslipidemia: Code(s): E78.5 - Hyperlipidemia, unspecified Category: Medical Plan: Better controlled. Continue current regimen (2) HTN (hypertension): Code(s): I10 - Essential (primary) hypertension Category: Medical Plan: WNL continue current regimen (3) Controlled type 2 diabetes mellitus: Code(s): E11.9 - Type 2 diabetes mellitus without complications Category: Medical Plan: We will start patient on Mounjaro 2.5 mg weekly. Discussed risks and benefits and adverse effects of the medication. She will let me know if she has any side effects. We will monitor recheck labs in 3 months (4) Persistent headaches: Code(s): R51.9 - Headache, unspecified Category: Medical Plan: Improved with amitriptyline (5) Insomnia: Code(s): G47.00 - Insomnia, unspecified Category: Medical Plan: Increase amitriptyline to 50 mg nightly Medications: New tirzepatide (Mounjaro) 2.5 mg (0.5 mL) subcut QWEEK 2 mL 3RF amitriptyline 50 mg PO BEDTIME 90 tabs 1RF Discontinued dulaglutide (Trulicity) Discontinued Reason: Doctor's Order 1.5 mg (0.5 mL) subcut QWEEK 2 mL 3RF amitriptyline Discontinued Reason: Doctor's Order 20 mg (2 x 10 mg) PO BEDTIME 180 tabs 3RF
[2025-02-26 15:05] VITALS: BP 122/74; PULSE 76; RESP 12; O2SAT 97; BMI 32.3
--- OUTSIDE RECORDS SUMMARY | 2025-02-26 20:25 | XMS_ITS | Data Portability ---
Author Organization [facility], [address] Address [address] [place] [address] Assessment No assessment recorded. Plan of Treatment Reminders Order Date Submit Date Provider Last Modified By Organization Details Last Modified Time Details Appointments None recorded. Lab urinalysis, dipstick 2022 023 [place] [id number], [address] [place] [address], [phone], 12:49:25 test, urine 2022 023 [place] [id number], [address] [place] [address], [phone], 12:49:25 Referral None recorded. Procedures None recorded. Surgeries None recorded. Imaging None recorded. Medication Orders cyclobenzap rine 10 mg tablet 2022 023 [facility]/Pharmacy #[id number], [address] [place], [address], 12:49:27 naproxen 500 mg tablet [address]/Pharmacy #[id number], [address] [place], [address], 12:49:27 Patient TargetsNo targets recorded. Patient Instructions Encounter Date Encounter Id Patient Instructions Last Modified By Organization Details Last Modified Time 08/31/2022 [id number] back pain: care instructions [place] [id number] Not available 08/31/2022 12:49:25 Reason for Referral None Reported. Results Created Date Observation Date Name Description Value Unit Range Abnormal Flag Note LastModifiedBy Organization Detail LastModifiedTime 09/01/19 23 08/31/2022 pregn catarino test, urine Unknown Analyte Normal = Negati ve Not Available 2099eulogio franklin [address], [place], [address], 08/31/2022 11:51:08 09/01/19 23 08/31/2022 pregn catarino test, urine Unknown Analyte negati ve Not Available 2099eulogio franklin [address], [place], [address], 08/31/2022 11:51:08 09/01/19 23 08/31/2022 urina lysis , dipst ick Unknown Analyte Normal = light yellow Not Available 2099eulogio franklin [address], [place], [address], 08/31/2022 11:51:03 09/01/19 23 08/31/2022 urina lysis , dipst ick Unknown Analyte Yellow Not Available [address], [place], [address], 08/31/2022 11:51:03 09/01/19 23 08/31/2022 urina lysis , dipst ick Unknown Analyte Normal = clear Not Available 2099eulogio franklin [address], [place], [address], 08/31/2022 11:51:03 09/01/19 23 08/31/2022 urina lysis , dipst ick Unknown Analyte Clear Not Available [address], [place], [address], 08/31/2022 11:51:03 09/01/19 23 08/31/2022 urina lysis , dipst ick Unknown Analyte Normal = negati ve Not Available [facility], [place], [address], 08/31/2022 11:51:03 09/01/1908/31/2022 urina lysis , dipst ick Unknown Analyte Normal = Negati ve Not Available eulogio franklin [address], [place], [address], 08/31/2022 11:51:03 09/01/19 23 08/31/2022 urina lysis , dipst ick Unknown Analyte Normal = Negati ve Not Available eulogio franklin [address], [place], [address], 08/31/2022 11:51:03 09/01/19 23 08/31/2022 urina lysis , dipst ick Unknown Analyte Negati ve Not Available eulogio [address], [place], [address], 08/31/2022 11:51:03 09/01/1908/31/2022 urina lysis , dipst ick Unknown Analyte Negati ve Not Available eulogio franklin [address], [place], [address], 08/31/2022 11:51:03 09/01/1908/31/2022 urina lysis , dipst ick Unknown Analyte Negati ve Not Available [facility] [address], [place], [address], 08/31/2022 11:51:03 09/01/19 23 08/31/2022 urina lysis , dipst ick Unknown Analyte Normal = 1.010, 1.015, 1.020 Not Available eulogio franklin [address], [place], [address], 08/31/2022 11:51:03 09/01/19 23 08/31/2022 urina lysis , dipst ick Unknown Analyte 1.020 Not Available ronnie [address], [place], [address], 08/31/2022 11:51:03 09/01/19 23 08/31/2022 urina lysis , dipst ick Unknown Analyte Normal = Negati ve Not Available eulogio [address], [place], [address], 08/31/2022 11:51:03 09/01/19 23 08/31/2022 urina lysis , dipst ick Unknown Analyte Modera te Not Available eulogio franklin [address], [place], [address], 08/31/2022 11:51:03 09/01/19 23 08/31/2022 urina lysis , dipst ick Unknown Analyte Normal = 6.5, 7.0, 7.5, 8.0 Not Available eulogio [address], [place], [place], [address], 08/31/2022 11:51:03 09/01/19 23 08/31/2022 urina lysis , dipst ick Unknown Analyte 6.5 Not Available [address], [place], [place], [address], 08/31/2022 11:51:03 09/01/19 23 08/31/2022 urina lysis , dipst ick Unknown Analyte Normal = Negati ve Not Available eulogio [address], [place], [place], [address], 08/31/2022 11:51:03 09/01/19 23 08/31/2022 urina lysis , dipst ick Unknown Analyte Negati ve Not Available eulogio [address], [place], [address], 08/31/2022 11:51:03 09/01/19 23 08/31/2022 urina lysis , dipst ick Unknown Analyte Normal = 0.2, 1.0 Not Available eulogio franklin [address], [place], [address], 08/31/2022 11:51:03 09/01/19 23 08/31/2022 urina lysis , dipst ick Unknown Analyte 0.2 E.U./d L Not Available [facility] [address], [place], [address], 08/31/2022 11:51:03 09/01/19 23 08/31/2022 urina lysis , dipst ick Unknown Analyte Normal = Negati ve Not Available [address], [place], [address], 08/31/2022 11:51:03 09/01/19 23 08/31/2022 urina lysis , dipst ick Unknown Analyte Normal = Negati ve Not Available [facility] [address], [place], [address], 08/31/2022 11:51:03 09/01/19 23 08/31/2022 urina lysis , dipst ick Unknown Analyte Negati ve Not Available [address], [place], [address], 08/31/2022 11:51:03 09/01/19 23 08/31/2022 urina lysis , dipst ick Unknown Analyte Negati ve Not Available [address] [place], [address], 08/31/2022 11:51:03 Result Notes None recorded. Problems No Known Problems Procedures Surgical History Date Name Laterality Status Provider Name and Address Organization Details Recorded Time section completed SOPHIA [facility] 08/31/2022 11:49:52 excision of ganglion cyst completed SOPHIA Gomez [facility] 08/31/2022 11:50:31 Dilation and curettage completed [facility] 08/31/2022 11:50:46 Imaging Results None recorded. Procedure [...] [Score] - Reported Respiratory rate Oxygen saturation Heart rate Body temperature Systolic And Diastolic Provider Name and Address Organization Details Last Updated DateTime 3 167.64 cm 34.1 kg/m2 53321.9 9 g 8 19 /min 99 % 65 /min 98 [degF] 159/81 mm[Hg] SOPHIA Gomez [facility] 11:52:05 Social History Question Answer Notes LastModified by [employer] ion Details LastModified Time Tobacco Smoking Status Current Every Day Smoker DANYELLE Lizama [facility] 08/31/2022 11:49:37 How Much Tobacco Do You Smoke? 0.25 PPD Information not available 08/31/2022 Have You Recently Traveled Abroad? No [email or web address] Information not available 08/31/2022 Sex: Unknown Functional Status Question Answer Note LastModified by Organizat ion Details LastModified Time Do you use any illicit or recreational drugs? No [email or web address] Information not available 08/31/2022 Do you or have you ever used any other forms of tobacco or nicotine? No Information not available 08/31/2022 What is your level of alcohol consumption? None Information not available 08/31/2022 Mental Status None recorded. Family History Relationship Description Onset Age of this Age Resolved Age Notes LastModified by Organization Details LastModified Time Father No current problems or disability [email or web address] Not available 08/31 11:49:15 Mother No current problems or disability [email or web address] Not available 08/31 11:49:15 Medical History No medical history recorded. Gynecological History Statement/Question Response Date of LMP Obstetrics History GPAL:G 0 P 0 0 0 0 Past Encounters Encounter ID Performer Location Encounter Start Date Encounter Closed Date Diagnosis/Indication Diagnosis SNOMED-CT Code Diagnosis ICD10 Code Diagnosis IMO Codes Diagnosis Note [id number] [facility] [address] [place] [address] 12/25/2014 09:34:50 12/25/2014 10:29:33 [id number] [facility] [address] [place] [address] 06/19/2015 09:43:53 06/19/2015 10:30:20 [id number] Jennifer Hewitt MD [address] [place] [address] 08/31/2022 09:45:19 08/31/2022 12:54:43 Low back pain [id number] M54.50 Please follow up with PCP or [...] ID Denise Member ID Guarantor Name 08/31/[address] [place] [address] [id number] Love Douglass [id number] Love Douglass Notes Date Note Type Note [...] to affected body part. Jennifer Hewitt MD [facility] [place], [address], [place] - [facility] 09/05/2022 08:23:21 OBGyn Episode No OBEpisode recorded.
== END 2025-02-26 15:17 | disposition home or self-care (01) ==
LOC: HO.HMCFM 14:59
PROVIDERS: PCP Physician Assistant; Visit Provider Physician Assistant
DX: E11.9 Type 2 diabetes mellitus without complications (principal); I10 Essential (primary) hypertension; E78.5 Hyperlipidemia, unspecified; G47.00 Insomnia, unspecified; R51.9 Headache, unspecified